=== PATIENT | male | born 1955 | race Caucasian/White ===

== ENCOUNTER 2017-03-11 09:22 | Emergency (ER) | payer OTHER ==
[2017-03-11] MEDS ORDERED: NS 0.9% 1000 ML* 1,000 ML IV ONE ×2 (09:31→10:56)
[2017-03-11] MEDS ORDERED: Ondansetron INJ* 2 MG/ML VIAL IV ONE (09:31)
[2017-03-11 09:55] LABS: Hematocrit 46 % (42-52); Hemoglobin 16.2 g/dl (14.0-18.0); Mean Corpuscular HGB Conc 35 g/dl (31-36); Mean Corpuscular Hemoglobin 31 pg (27-31); Mean Corpuscular Volume 90 fL (80-94); Mean Platelet Volume 7 um3 (7.4-10.4); Red Blood Count 5.17 10^6/ul (4.0-5.4); Red Cell Distribution Width 13 % (10.5-15); White Blood Count 9.4 10^3/ul (3.5-10.8)
[2017-03-11 10:06] LABS: Urine Bacteria Absent (Absent); Urine Bilirubin Negative (Negative); Urine Glucose Negative (Negative); Urine Nitrite Negative (Negative)
[2017-03-11 10:12] LABS: Albumin 4.3 g/dL (3.2-5.2); BUN/Creatinine Ratio 14.3 (8-20); C Reactive Protein 6.22 mg/L (< 5.00); Calcium 9.5 mg/dL (8.6-10.3); EGFR African American 70.1 (>60); EGFR Non-African American 54.5 (>60); Globulin 3.1 g/dL (2-4); Potassium 4.1 mmol/L (3.5-5.0); Total Bilirubin 0.8 mg/dL (0.2-1.0); Total Protein 7.4 g/dL (6.4-8.9)
--- NOTE | 2017-03-11 10:51 | ED ---
Abdominal Pain/Male - HPI Summary HPI Summary: 62 male presents to ED with complaints of diffuse upper abdominal pain, nausea, vomiting and diarrhea that began early this morning around 1AM. Patient states his pain and symptoms have since subsided shortly after arriving to ED. States he was feeling weak and chilled at this time. Thinks he may have ate "salad that went bad, because it did not get into the refrigerator on time". Denies any take out food. Denies blood in vomit or stool. No other symptoms. Last normal bowel movement was yesterday. Early this morning patient was experiencing loose stool that turned into watery diarrhea. Denies abdominal disease or surgeries other than stomach ulcers. Patient states his ulcer was last checked a few years ago and told it was healed. Take protonix daily. Denies chest pain, difficulty breathing, fever, urinary symptoms, genitalia symptoms and radiation of abdominal discomfort/pain. Described the pain to be dull and a 6/10 that gradually subsided on its own. Denies recent travel and no recent antibiotic use. Has not taken any medication [employer] for his symptoms. Follows with PCP annually. No other known sick contacts. No other significant PMHx. - History of Current Complaint Chief Complaint: EDAbdPain Stated Complaint: ABD PAIN, VOMITING, DIARRHEA Time Seen by Provider: 03/11/17 09:41 Hx Obtained From: Patient Onset/Duration: Sudden Onset, Still Present, Resolved - somewhat, still feeling nauseous Timing: Constant, Lasting Hours Severity Initially: Moderate Severity Currently: Mild Pain Intensity: 3 Pain Scale Used: 0-10 Numeric Location: Diffuse, Discrete At: RUQ, Discrete At: LUQ, Epigastric Radiates: No Character: Dull, Cramping Aggravating Factor(s): Nothing Alleviating Factor(s): Nothing, Spontaneous Resolution Associated Signs And Symptoms: Positive: Nausea, Vomiting, Diarrhea. Negative: Fever, Cough, Back Pain, Constipation, Blood in Stool, Urinary Symptoms - Risk Factors Testicular Torsion: Negative Cardiac Risk Factors: Negative - Allergies/Home Medications Allergies/Adverse Reactions: Allergies Allergy/AdvReac Type Severity Reaction Status Date / Time Sulfamethoxazole Allergy Fever Verified 07/14/15 15:04 w/Trimethoprim [From Bactrim] IV CONTRAST Allergy Unknown Uncoded 07/14/15 15:04 Reaction Details PMH/Surg Hx/FS Hx/Imm Hx Endocrine/Hematology History: Denies: Hx Anticoagulant Therapy, Hx Diabetes, Hx Thyroid Disease Cardiovascular History: Denies: Hx Hypercholesterolemia, Hx Hypertension, Hx Pacemaker/ICD Respiratory History: Denies: Hx Asthma, Hx Chronic Obstructive Pulmonary Disease (COPD) History: Denies: Hx Renal Disease Sensory History: Reports: Hx Contacts or Glasses Opthamlomology History: Reports: Hx Contacts or Glasses Neurological History: Denies: Hx Dementia, Hx Seizures Psychiatric History: Denies: Hx Substance Abuse - Surgical History Surgery Procedure, Year, and Place: right arm tendon repair and pins/plate - Immunization History Immunizations Up to Date: Yes Infectious Disease History: No Infectious Disease History: Reports: Hx of Known/Suspected MRSA Denies: Hx Clostridium Difficile, Hx Hepatitis, Hx Human Immunodeficiency Virus (HIV), Hx Shingles, Hx Tuberculosis, Hx Known/Suspected VRSA, History Other Infectious Disease, Traveled Outside the [place] in Last 30 Days - Family History Known Family History: Positive: None - Social History Alcohol Use: None Alcohol Amount: Quit approximately 3 years ago Substance Use Type: Reports: None Smoking Status (MU): Former Smoker Review of Systems Positive: Chills Cardiovascular: Negative Respiratory: Negative Positive: Abdominal Pain, Vomiting, Diarrhea, Nausea Genitourinary: Negative Musculoskeletal: Negative Skin: Negative Positive: Weakness - diffuse, from vomiting, has improved some All Other Systems Reviewed And Are Negative: Yes Physical Exam Triage Information Reviewed: Yes Vital Signs On Initial Exam: Initial Vitals Temp Pulse Resp BP Pulse Ox 98.5 F 100 20 121/77 97 03/11/17 09:24 03/11/17 09:24 03/11/17 09:24 03/11/17 09:24 03/11/17 09:24 Vital Signs Reviewed: Yes Appearance: Positive: Well-Appearing, No Pain Distress, Well-Nourished Skin: Positive: Warm, Skin Color Reflects Adequate Perfusion, Dry. Negative: Cold, Soft, Jaundiced, Pale, Erythema @ Head/Face: Positive: Normal Head/Face Inspection Eyes: Positive: Conjunctiva Clear ENT: Positive: Hearing grossly normal, Pharynx normal Dental: Negative: Cervical Lymphadenopathy Neck: Positive: Supple, Nontender, No Lymphadenopathy Respiratory/Lung Sounds: Positive: Clear to Auscultation, Breath Sounds Present. Negative: Rales, Rhonchi, Wheezes Cardiovascular: Positive: Normal, RRR, Pulses are Symmetrical in both Upper and Lower Extremities. Negative: Murmur, Rub Abdomen Description: Positive: Nontender, No Organomegaly, Soft. Negative: Bruit, CVA Tenderness (R), CVA Tenderness (L), Distended, Guarding, Peritoneal Signs, Pulsatile Mass Bowel Sounds: Positive: Present, Hyperactive Musculoskeletal: Positive: Normal, Strength/ROM Intact Neurological: Positive: Normal, Sensory/Motor Intact, Alert, Oriented to Person Place, Time Psychiatric: Positive: Affect/Mood Appropriate - William Coma Scale Coma Scale Total: 15 Diagnostics - Vital Signs Vital Signs Temp Pulse Resp BP Pulse Ox 03/11/17 10:02 96 94 03/11/17 09:52 98 96 03/11/17 09:46 100.2 F 99 18 110/73 95 03/11/17 09:24 98.5 F 100 20 121/77 97 - Laboratory Lab Results: Lab Results 03/11/17 03/11/17 03/11/17 Range/Units 09:41 09:41 09:41 WBC 9.4 (3.5-10.8) 10^3/ul RBC 5.17 (4.0-5.4) 10^6/ul Hgb 16.2 (14.0-18.0) g/dl Hct 46 (42-52) % MCV 90 (80-94) fL MCH 31 (27-31) pg MCHC 35 (31-36) g/dl RDW 13 (10.5-15) % Plt Count 210 (150-450) 10^3/ul MPV 7 L (7.4-10.4) um3 Neut % (Auto) 92.0 H (38-83) % Lymph % (Auto) 2.3 L (25-47) % [place] % (Auto) 5.2 (1-9) % Eos % (Auto) 0.3 (0-6) % Baso % (Auto) 0.2 (0-2) % Absolute Neuts (auto) 8.6 H (1.5-7.7) 10^3/ul Absolute Lymphs (auto) 0.2 L (1.0-4.8) 10^3/ul Absolute Monos (auto) 0.5 (0-0.8) 10^3/ul Absolute Eos (auto) 0 (0-0.6) 10^3/ul Absolute Basos (auto) 0 (0-0.2) 10^3/ul Absolute Nucleated RBC 0.01 10^3/ul Nucleated RBC % 0.1 Sodium 137 (133-145) mmol/L Potassium 4.1 (3.5-5.0) mmol/L Chloride 104 (101-111) mmol/L Carbon Dioxide 26 (22-32) mmol/L Anion Gap 7 (2-11) mmol/L BUN 19 (6-24) mg/dL Creatinine 1.33 H (0.67-1.17) mg/dL Est GFR ( Amer) 70.1 (>60) Est GFR (Non-Af Amer) 54.5 (>60) BUN/Creatinine Ratio 14.3 (8-20) Glucose 141 H (70-100) mg/dL Lactic Acid 2.2 H* (0.5-2.0) mmol/L Calcium 9.5 (8.6-10.3) mg/dL Total Bilirubin 0.80 (0.2-1.0) mg/dL AST 14 (13-39) U/L ALT 14 (7-52) U/L Alkaline Phosphatase 54 (34-104) U/L C-Reactive Protein 6.22 H (< 5.00) mg/L Total Protein 7.4 (6.4-8.9) g/dL Albumin 4.3 (3.2-5.2) g/dL Globulin 3.1 (2-4) g/dL Albumin/Globulin Ratio 1.4 (1-3) Lipase 17 (11.0-82.0) U/L Urine Color Urine Appearance Urine pH (5-9) Ur Specific [place] (1.010-1.030) Urine Protein (Negative) Urine Ketones (Negative) Urine Blood (Negative) Urine Nitrate (Negative) Urine Bilirubin (Negative) Urine Urobilinogen (Negative) Ur Leukocyte Esterase (Negative) Urine WBC (Auto) (Absent) Urine RBC (Auto) (Absent) Urine Bacteria (Absent) Urine Glucose (Negative) 03/11/17 Range/Units 09:48 WBC (3.5-10.8) 10^3/ul RBC (4.0-5.4) 10^6/ul Hgb (14.0-18.0) g/dl Hct (42-52) % MCV (80-94) fL MCH (27-31) pg MCHC (31-36) g/dl RDW (10.5-15) % Plt Count (150-450) 10^3/ul MPV (7.4-10.4) um3 Neut % (Auto) (38-83) % Lymph % (Auto) (25-47) % [place] % (Auto) (1-9) % Eos % (Auto) (0-6) % Baso % (Auto) (0-2) % Absolute Neuts (auto) (1.5-7.7) 10^3/ul Absolute Lymphs (auto) (1.0-4.8) 10^3/ul Absolute Monos (auto) (0-0.8) 10^3/ul Absolute Eos (auto) (0-0.6) 10^3/ul Absolute Basos (auto) (0-0.2) 10^3/ul Absolute Nucleated RBC 10^3/ul Nucleated RBC % Sodium (133-145) mmol/L Potassium (3.5-5.0) mmol/L Chloride (101-111) mmol/L Carbon Dioxide (22-32) mmol/L Anion Gap (2-11) mmol/L BUN (6-24) mg/dL Creatinine (0.67-1.17) mg/dL Est GFR ( Amer) (>60) Est GFR (Non-Af Amer) (>60) BUN/Creatinine Ratio (8-20) Glucose (70-100) mg/dL Lactic Acid (0.5-2.0) mmol/L Calcium (8.6-10.3) mg/dL Total Bilirubin (0.2-1.0) mg/dL AST (13-39) U/L ALT (7-52) U/L Alkaline Phosphatase (34-104) U/L C-Reactive Protein (< 5.00) mg/L Total Protein (6.4-8.9) g/dL Albumin (3.2-5.2) g/dL Globulin (2-4) g/dL Albumin/Globulin Ratio (1-3) Lipase (11.0-82.0) U/L Urine Color Yellow Urine Appearance Clear Urine pH 5.0 (5-9) Ur Specific [place] 1.018 (1.010-1.030) Urine Protein Negative (Negative) Urine Ketones Negative (Negative) Urine Blood 1+ H (Negative) Urine Nitrate Negative (Negative) Urine Bilirubin Negative (Negative) Urine Urobilinogen Negative (Negative) Ur Leukocyte Esterase Negative (Negative) Urine WBC (Auto) Trace(0-5/hpf) (Absent) Urine RBC (Auto) Trace(0-2/hpf) (Absent) Urine Bacteria Absent (Absent) Urine Glucose Negative (Negative) Result Diagrams: 03/11/17 09:41 03/11/17 09:41 Lab Statement: Any lab studies that have been ordered have been reviewed, and results considered in the medical decision making process. Re-Evaluation - Re-Evaluation First Eval Re-Evaluation Time: 10:30 Change: Improved - patient was feeling much better after zofran and fluids. Second Eval Re-Evaluation Time: 12:30 Change: Improved - still feeling much better, no vomiting. updated on second lactic acid value. had some diffuse lower abdominal dull achey pain, will give toradol. had increase in temp to 101F will give tylenol and wait to decrease before d/c. Third Eval Re-Evaluation Time: 13:30 Change: Improved - pain relieved, fever still 101F after 30min of tylenol administration however patient felt better, wanted to go home at this time. ready to be d/c aware of worsening signs and symptoms Abdominal Pain Fem Course/Dx - Course Course Of Treatment: given fluids and zofran patient had significant relief. was feeling much better, pain spontaneuously subsided. somewhat returned during visit, given toradol fo tylenol and fever of 101F that also gradually increased during stay. normal PE findings and vitals. labs obtained, first alctic was 2.2 did a repeat and was 1.9. no concern for sepsis. attempted to obtain stool culture. rest of labs unremarkable. urinalysis unremarkable. no urinary or gentialia symptoms. appears to be suffering a gastroenteritis, viral versus food poisoning. Imaging appears unnecessary at this time as no suspicion for appendicitis, cholecystitis, colitis, PUD, diverticulitis or biliary colic. No other concern for emergent abdominal etiologies. no chest pain, SOB or difficulty breathing. does not appear to be cardiorespiratory in nautre. no prominent risk factors. no alcohol use. aware of worsening signs and symptoms ( blood, fever, dehydration, worsening pain etc). fluids and zofran at home. rest. BRAT. follow up pcp. - Diagnoses Differential Diagnosis/HQI/PQRI: Appendicitis, Constipation, Diverticulitis, Gall Bladder Disease, Pancreatitis, Peptic Ulcer Disease, Urinary Tract Infection, Other - gastroenteritis, gastritis Provider Diagnoses: Gastroenteritis, Nausea vomiting and diarrhea Discharge - Discharge Plan Condition: Stable Disposition: HOME Prescriptions: Ondansetron TAB* [Zofran 4 MG Tab*] 4 mg PO Q6H PRN #10 tab PRN Reason: Nausea Patient Education Materials: Gastroenteritis (ED), Acute Nausea and Vomiting ( ED) Referrals: Maurice Rene MD [Primary Care Provider] - Additional Instructions: Recommend taking zofran for nausea and vomiting as needed. Take probiotic pill to replenish good/normal lisa in GI tract or eat latvian yogurt with cultures. Drink plenty of fluids, eat a bland diet containing bananas, toast, rice and applesauce. Follow up with PCP. If symptoms worsen or do not improve please seek medical attention promptly, as discussed (fever, chest pain, worsening localized pain, large blood in stool or vomit).
[2017-03-11] MEDS ORDERED: Ketorolac INJ* 30 MG/ML 1 ML VIAL IV PUSH ONE (12:25)
[2017-03-11] MEDS ORDERED: Acetaminophen TAB* 325 MG PO ONE (12:58)
[2017-03-11 13:00] VITALS: BP 105/61
== END 2017-03-11 14:08 | disposition home or self-care (01) ==
LOC: ED 09:22
DX: K52.9 Noninfective gastroenteritis and colitis, unspecified (principal); Z87.891 Personal history of nicotine dependence; Z88.2 Allergy status to sulfonamides
CPT/HCPCS: 36415; 80053; 81003; 81015; 83605; 83690; 85025; 86140; 87040; 96360; 96374; 96375; 99283; A9270-GY; J1885; J2405

== ENCOUNTER 2017-07-12 19:10 | Inpatient (IN) | payer OTHER ==
[2017-07-12 21:54] LABS: ABS Basophils 0.1 10^3/ul (0-0.2); ABS Eosinophils 0.1 10^3/ul (0-0.6); ABS Lymphocytes 1.7 10^3/ul (1.0-4.8); ABS Monocytes 1.4 10^3/ul (0-0.8); ABS Neutrophils 9.4 10^3/ul (1.5-7.7); ABS Nucleated RBC 0.04 10^3/ul; Hematocrit 45 % (42-52); Hemoglobin 15.6 g/dl (14.0-18.0); Lymphocyte % 13.1 % (25-47); Mean Corpuscular HGB Conc 35 g/dl (31-36); Mean Corpuscular Hemoglobin 31 pg (27-31); Mean Corpuscular Volume 90 fL (80-94); Mean Platelet Volume 7 um3 (7.4-10.4); Nucleated Red Blood Cells % 0.3; Platelet Count 230 10^3/ul (150-450); Red Cell Distribution Width 13 % (10.5-15); White Blood Count 12.6 10^3/ul (3.5-10.8)
--- NOTE | 2017-07-12 22:01 | RAD ---
INDICATION: LEFT rib pain radiating to the LEFT shoulder for approximately 24 hours. COMPARISON: April 30, 2012 TECHNIQUE: Dual energy PA and routine lateral views of the chest were obtained. REPORT: Alveolar consolidation at the level of the LEFT costophrenic angle. Small LEFT pleural effusion. Negative for pneumothorax. The heart, pulmonary vasculature, and mediastinal contours are unremarkable. No thoracic fractures evident. Mild thoracic degenerative spondylosis. IMPRESSION: Mild LEFT basilar airspace consolidation which may represent atelectasis or pneumonia. Probable small LEFT pleural effusion.
[2017-07-12 22:11] LABS: EGFR Non-African American 56.9 (>60)
[2017-07-12] MEDS ORDERED: NS 0.9% 1000 ML* 2,000 ML IV ONE (23:14)
[2017-07-12] MEDS ORDERED: Acetaminophen TAB* 325 MG PO ONE (23:15)
[2017-07-12] MEDS ORDERED: HYDROmorphone INJ* 2 MG/ML CARPUJECT SYRINGE IV SLOW PU ONE (23:16)
[2017-07-12] MEDS ORDERED: Vancomycin(*) 1,000 MG in NS 0.9% 250 ML* 250 ML IVPB ONE (23:17)
[2017-07-12] MEDS ORDERED: Ondansetron INJ* 2 MG/ML VIAL IV ONE (23:17)
[2017-07-12] MEDS ORDERED: Piperacillin/Tazobac ADVAN(*) 3.375 GM in NS 0.9% 100 ML* 100 ML IVPB ONE (23:17)
[2017-07-12] MEDS ORDERED: NS 0.9% 100 ML* 100 ML ONE (23:37)
[2017-07-13] MEDS ORDERED: HYDROmorphone INJ* 2 MG/ML CARPUJECT SYRINGE IV SLOW PU ONE ×2 (00:48→04:00)
[2017-07-13] MEDS ORDERED: Azithromycin IV(*) 500 MG in NS 0.9% 250 ML* 250 ML IVPB SCH (03:00)
[2017-07-13] MEDS ORDERED: Ketorolac INJ* 60 MG/2 ML VIAL ONE (04:07)
[2017-07-13] MEDS ORDERED: Ketorolac INJ* 30 MG/ML 1 ML VIAL IV PUSH ONE (04:08)
[2017-07-13] MEDS ORDERED: Ketorolac INJ* 60 MG/2 ML VIAL IV PUSH ONE (04:14)
--- NOTE | 2017-07-13 04:17 | ED ---
Rubén Boudreaux Gabriel, scribed for Deepak Davis MD on 07/12/17 at 2316 . Upper Extremity Pain - HPI Summary HPI Summary: This patient is a 62 year old M presenting to [facility] accompanied by his with a chief complaint of left rib and shoulder pain since 2100 yesterday. The patient rates the pain 4/10 in severity. Symptoms aggravated by sitting down and coughing. Patient reports pain on inspiration, chest congestion, and dizzy spells (1 month). Patient denies fever and injury. Patient denies any cardiac history. - History of Current Complaint Chief Complaint: EDChestWallPain Stated Complaint: PAIN IN LT SHOULDER & CHEST Time Seen by Provider: 07/12/17 22:43 Hx Obtained From: Patient Mechanism Of Injury: Other - none Onset/Duration: Started Days Ago - 1, Still Present Timing: Constant, Intermittent Severity Initially: Moderate Severity Currently: Moderate Pain Location: Shoulder, Other: - ribs Aggravating Factor(s): Other - sitting and coughing - Allergies/Home Medications Allergies/Adverse Reactions: Allergies Allergy/AdvReac Type Severity Reaction Status Date / Time Sulfamethoxazole Allergy Fever Verified 07/12/17 19:17 w/Trimethoprim [From Bactrim] IV CONTRAST Allergy Unknown Uncoded 07/12/17 19:17 Reaction Details PMH/Surg Hx/FS Hx/Imm Hx Endocrine/Hematology History: Denies: Hx Anticoagulant Therapy, Hx Diabetes, Hx Thyroid Disease Cardiovascular History: Denies: Hx Atrial Fibrillation, Hx Congenital Heart Disease, Hx Congestive Heart Failure, Hx Deep Vein Thrombosis, Hx Hypercholesterolemia, Hx Hypertension , Hx Pacemaker/ICD Respiratory History: Denies: Hx Asthma, Hx Chronic Obstructive Pulmonary Disease (COPD) History: Denies: Hx Renal Disease Sensory History: Reports: Hx Contacts or Glasses Opthamlomology History: Reports: Hx Contacts or Glasses Neurological History: Denies: Hx Dementia, Hx Seizures Psychiatric History: Denies: Hx Substance Abuse - Surgical History Surgery Procedure, Year, and Place: right arm tendon repair and pins/plate Infectious Disease History: No Infectious Disease History: Reports: Hx of Known/Suspected MRSA Denies: Hx Clostridium Difficile, Hx Hepatitis, Hx Human Immunodeficiency Virus (HIV), Hx Shingles, Hx Tuberculosis, Hx Known/Suspected VRSA, History Other Infectious Disease, Traveled Outside the [place] in Last 30 Days - Family History Known Family History: Positive: None - Social History Alcohol Use: None Alcohol Amount: Quit approximately 3 years ago Substance Use Type: Reports: None Smoking Status (MU): Former Smoker Review of Systems Positive: Other - rib and shoulder pain All Other Systems Reviewed And Are Negative: Yes Physical Exam - Summary Physical Exam Summary: VITAL SIGNS: Reviewed. GENERAL: Patient is a well-developed and nourished male who is lying comfortable in the stretcher. Patient is in moderate pain distress. HEAD AND FACE: No signs of trauma. No ecchymosis, hematomas or skull depressions. No sinus tenderness. EYES: PERRLA, EOMI x 2, No injected conjunctiva, no nystagmus. EARS: Hearing grossly intact. Ear canals and tympanic membranes are within normal limits. MOUTH: Oropharynx within normal limits. NECK: Supple, trachea is midline, no adenopathy, no JVD, no carotid bruit, no c- spine tenderness, neck with full ROM. CHEST: Symmetric, no tenderness at palpation LUNGS: decreased breath sounds bilaterally CVS: Regular rate and rhythm, S1 and S2 present, no murmurs or gallops appreciated. ABDOMEN: Soft, LUQ tenderness. No signs of distention. No rebound no guarding, and no masses palpated. Bowel sounds are normal. EXTREMITIES: FROM in all major joints, no edema, no cyanosis or clubbing. NEURO: Alert and oriented x 3. No acute neurological deficits. Speech is normal and follows commands. SKIN: Dry and warm Triage Information Reviewed: Yes Vital Signs On Initial Exam: Initial Vitals Temp Pulse Resp BP Pulse Ox 97.2 F 111 18 140/89 97 07/12/17 19:13 07/12/17 19:13 07/12/17 19:13 07/12/17 19:13 07/12/17 19:13 Vital Signs Reviewed: Yes Diagnostics - Vital Signs Vital Signs Temp Pulse Resp BP Pulse Ox 07/12/17 23:11 102.3 F 07/12/17 23:00 124 21 113/29 94 07/12/17 22:45 117 94 07/12/17 22:42 130/78 07/12/17 22:10 99.4 F 117 18 142/69 98 07/12/17 19:13 97.2 F 111 18 140/89 97 - Laboratory Lab Results: Lab Results 07/12/17 07/12/17 07/12/17 Range/Units 21:36 21:36 21:36 WBC 12.6 H (3.5-10.8) 10^3/ul RBC 5.00 (4.0-5.4) 10^6/ul Hgb 15.6 (14.0-18.0) g/dl Hct 45 (42-52) % MCV 90 (80-94) fL MCH 31 (27-31) pg MCHC 35 (31-36) g/dl RDW 13 (10.5-15) % Plt Count 230 (150-450) 10^3/ul MPV 7 L (7.4-10.4) um3 Neut % (Auto) 74.4 (38-83) % Lymph % (Auto) 13.1 L (25-47) % [place] % (Auto) 10.7 H (1-9) % Eos % (Auto) 1.0 (0-6) % Baso % (Auto) 0.8 (0-2) % Absolute Neuts (auto) 9.4 H (1.5-7.7) 10^3/ul Absolute Lymphs (auto) 1.7 (1.0-4.8) 10^3/ul Absolute Monos (auto) 1.4 H (0-0.8) 10^3/ul Absolute Eos (auto) 0.1 (0-0.6) 10^3/ul Absolute Basos (auto) 0.1 (0-0.2) 10^3/ul Absolute Nucleated RBC 0.04 10^3/ul Nucleated RBC % 0.3 D-Dimer, Quantitative 592 H (Less Than 230) ng/mL Sodium 138 (133-145) mmol/L Potassium 4.2 (3.5-5.0) mmol/L Chloride 100 L (101-111) mmol/L Carbon Dioxide 28 (22-32) mmol/L Anion Gap 10 (2-11) mmol/L BUN 19 (6-24) mg/dL Creatinine 1.28 H (0.67-1.17) mg/dL Est GFR ( Amer) 73.2 (>60) Est GFR (Non-Af Amer) 56.9 (>60) BUN/Creatinine Ratio 14.8 (8-20) Glucose 113 H (70-100) mg/dL Lactic Acid (0.5-2.0) mmol/L Calcium 10.3 (8.6-10.3) mg/dL Total Bilirubin 1.00 (0.2-1.0) mg/dL AST 16 (13-39) U/L ALT 18 (7-52) U/L Alkaline Phosphatase 66 (34-104) U/L Troponin I 0.00 (<0.04) ng/mL Total Protein 7.7 (6.4-8.9) g/dL Albumin 4.4 (3.2-5.2) g/dL Globulin 3.3 (2-4) g/dL Albumin/Globulin Ratio 1.3 (1-3) 07/12/17 Range/Units 21:36 WBC (3.5-10.8) 10^3/ul RBC (4.0-5.4) 10^6/ul Hgb (14.0-18.0) g/dl Hct (42-52) % MCV (80-94) fL MCH (27-31) pg MCHC (31-36) g/dl RDW (10.5-15) % Plt Count (150-450) 10^3/ul MPV (7.4-10.4) um3 Neut % (Auto) (38-83) % Lymph % (Auto) (25-47) % [place] % (Auto) (1-9) % Eos % (Auto) (0-6) % Baso % (Auto) (0-2) % Absolute Neuts (auto) (1.5-7.7) 10^3/ul Absolute Lymphs (auto) (1.0-4.8) 10^3/ul Absolute Monos (auto) (0-0.8) 10^3/ul Absolute Eos (auto) (0-0.6) 10^3/ul Absolute Basos (auto) (0-0.2) 10^3/ul Absolute Nucleated RBC 10^3/ul Nucleated RBC % D-Dimer, Quantitative (Less Than 230) ng/mL Sodium (133-145) mmol/L Potassium (3.5-5.0) mmol/L Chloride (101-111) mmol/L Carbon Dioxide (22-32) mmol/L Anion Gap (2-11) mmol/L BUN (6-24) mg/dL Creatinine (0.67-1.17) mg/dL Est GFR ( Amer) (>60) Est GFR (Non-Af Amer) (>60) BUN/Creatinine Ratio (8-20) Glucose (70-100) mg/dL Lactic Acid 3.2 H* (0.5-2.0) mmol/L Calcium (8.6-10.3) mg/dL Total Bilirubin (0.2-1.0) mg/dL AST (13-39) U/L ALT (7-52) U/L Alkaline Phosphatase (34-104) U/L Troponin I (<0.04) ng/mL Total Protein (6.4-8.9) g/dL Albumin (3.2-5.2) g/dL Globulin (2-4) g/dL Albumin/Globulin Ratio (1-3) Result Diagrams: 07/12/17 21:36 07/12/17 21:36 Lab Statement: Any lab studies that have been ordered have been reviewed, and results considered in the medical decision making process. - Radiology CXr Radiology Interpretation Completed By: Radiologist - Mild LEFT basilar airspace consolidation which may represent atelectasis or pneumonia. Probable small LEFT pleural effusion. ED physician has reviewed this radiology report. - CT CT ABD/Pelvis CT Interpretation Completed By: Radiologist - left lower lobe and lingular consolidations with minimal left pleural effusion may represent pneumonia and/ or atelectasis. No definite of acute traumatic pathology in chest, abdomen, or pelvis. ED physician has reviewed this report. - EKG 19:21 Cardiac Rate: NL, Tachycardia EKG Rhythm: Sinus Tachycardia - at 103 bpm EKG Interpretation: Normal axis. Normal interval. No ischemic changes Course/Dx - Course Assessment/Plan: This patient is a 62 year old M presenting to [facility] accompanied by his with a chief complaint of left rib and shoulder pain since 2100 yesterday. The patient rates the pain 4/10 in severity. Symptoms aggravated by sitting down and coughing. Patient reports pain on inspiration, chest congestion, and dizzy spells (1 month). Patient denies fever and injury. Patient denies any cardiac history. An EKG reveals Normal axis. Normal interval. No ischemic changes. CXR reveals, per radiologist, Mild LEFT basilar airspace consolidation which may represent atelectasis or. pneumonia. Probable small LEFT pleural effusion. CT Chest/ ABD reveals, per radiologist, left lower lobe and lingular consolidations with minimal left pleural effusion may represent pneumonia and/or atelectasis. No definite of acute traumatic pathology in chest, abdomen, or pelvis. Test results with no significant abnormalities except for a lactic acid of 3.2. We discussed patient care with Dr. Parikh and he agreed to admit the patient. The patient is agreeable with this plan. - Diagnoses Provider Diagnoses: PNA (pneumonia) - Physician Notifications Discussed Care of Patient With: Brennan Licona Time Discussed With Above Provider: 04:08 Instructed by Provider To: Admit As Inpatient Discharge - Discharge Plan Condition: Fair Disposition: ADMITTED TO [facility] Referrals: Maurice Rene MD [Primary Care Provider] - The documentation as recorded by the Rubén richardson Gabriel accurately reflects the service I personally performed and the decisions made by Susan mcfarland Abdul, MD.
[2017-07-13] MEDS ORDERED: Acetaminophen TAB* 325 MG PO PRN (06:00)
[2017-07-13] MEDS ORDERED: Albuterol 2.5 MG/3 ML NEB.SOL* (0.083%) INH PRN (06:00)
[2017-07-13] MEDS ORDERED: CMCS: Melatonin (NF) 3 MG TAB PO PRN (06:01)
[2017-07-13] MEDS ORDERED: Ondansetron INJ* 2 MG/ML VIAL IV PRN (06:02)
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
[2017-07-13] MEDS ORDERED: Azithromycin IV(*) 250 MG in D5W 250 ML BAG* 250 ML IVPB SCH (07:00)
[2017-07-13 07:05] LABS: ABS Basophils 0 10^3/ul (0-0.2); ABS Eosinophils 0 10^3/ul (0-0.6); ABS Lymphocytes 0.8 10^3/ul (1.0-4.8); ABS Monocytes 1.3 10^3/ul (0-0.8); ABS Neutrophils 11.2 10^3/ul (1.5-7.7); ABS Nucleated RBC 0.02 10^3/ul; Eosinophil % 0.1 % (0-6); Hematocrit 40 % (42-52); Hemoglobin 13.7 g/dl (14.0-18.0); Mean Corpuscular HGB Conc 35 g/dl (31-36); Mean Corpuscular Hemoglobin 31 pg (27-31); Mean Corpuscular Volume 90 fL (80-94); Mean Platelet Volume 7 um3 (7.4-10.4); Nucleated Red Blood Cells % 0.2; Platelet Count 188 10^3/ul (150-450); Red Blood Count 4.39 10^6/ul (4.0-5.4); Red Cell Distribution Width 13 % (10.5-15); White Blood Count 13.3 10^3/ul (3.5-10.8)
[2017-07-13] MEDS ORDERED: Enoxaparin(*) 100 MG/ML SYR SUBCUT ONE (07:11)
[2017-07-13 07:23] LABS: EGFR Non-African American 59.6 (>60)
--- NOTE | 2017-07-13 07:57 | RAD ---
HISTORY: Left-sided chest pain COMPARISONS: None TECHNIQUE: Multiple contiguous axial CT scans were obtained of the chest, abdomen, and pelvis, without intravenous contrast enhancement. Coronal and sagittal multiplanar reformations are submitted for review.. Oral contrast was not administered. FINDINGS: The study is limited by the lack of intravenous contrast. This limits evaluation of the solid organs and vasculature. CHEST NECK AND THYROID: The lower neck and thyroid are unremarkable. CHEST WALL: There is no lower cervical, axillary, or supraclavicular lymphadenopathy by size criteria. HEART AND PERICARDIUM: The heart is unremarkable. AORTA AND PULMONARY VASCULATURE: The aorta and pulmonary vasculature are normal. MEDIASTINUM: There is no mediastinal lymphadenopathy by size criteria. RYAN: There is no hilar lymphadenopathy by size criteria. AIRWAY AND ESOPHAGUS: The airway is unremarkable, without endobronchial filling defect. The esophagus is grossly normal. LUNG PARENCHYMA: There is patchy ground less opacification in subsegmental consolidation of the left lung base, and to lesser extent of the basal segments of the right lower lobe. PLEURA: There is a trace left pleural effusion. BONES AND SOFT TISSUES: No bone or soft tissue abnormalities are noted. ABDOMEN/PELVIS: LIVER: The liver is normal in shape, size, contour, and attenuation. BILE DUCTS: There is no intrahepatic or extrahepatic biliary dilatation. GALLBLADDER: The gallbladder is normal, without pericholecystic inflammatory change. PANCREAS: The pancreas is normal, without mass or ductal dilatation. SPLEEN: Normal in size and appearance. UPPER GI TRACT: Evaluation of the gastrointestinal tract is limited by incomplete gastric distention. The upper GI tract is unremarkable. SMALL BOWEL & MESENTERY: The small bowel is normal in contour, course, and caliber. There is no obstruction or dilatation. COLON: The colon is normal in contour, course, caliber. There is no pericolonic inflammatory change. There is a tubular, vermiform, hollow viscus that is blind ending, and originates from the cecum, consistent with a normal appendix. There is no periappendiceal inflammatory change. This is best seen on axial images 83 through 92. ADRENALS: Normal bilaterally. KIDNEYS: There is a simple cyst of the midpole the right kidney. There is no appreciable hydronephrosis or nephrolithiasis. BLADDER: The bladder is smooth in contour. PELVIC ORGANS: The prostate gland is normal. The seminal vesicles are symmetric. AORTA: The aorta is normal. IVC: Unremarkable LYMPH NODES: There is no lymphadenopathy by size criteria. ABDOMINAL WALL: There is no evidence for abdominal wall hernia. BONES AND SOFT TISSUES: There are mild diffuse degenerative changes. OTHER: None IMPRESSION: 1. PATCHY AIRSPACE DISEASE OF THE LUNG BASES BILATERALLY, GREATER ON THE LEFT THAN ON THE RIGHT. 2. OTHERWISE, NO ACUTE NONCONTRAST CT PATHOLOGY OF THE VISUALIZED CHEST, ABDOMEN, OR PELVIS.
[2017-07-13] MEDS: cefTRIAXone VIAL(*) 1,000 MG in NS 0.9% 50 ML* 50 ML IVPB SCH (08:55)
[2017-07-13] MEDS: NS 0.9% 1000 ML* 1,000 ML IV SCH ×2 (08:55→17:13)
[2017-07-13] MEDS: Omeprazole CAP* 20 MG PO SCH (09:45)
[2017-07-13] MEDS: Docusate CAP* 100 MG PO SCH ×2 (09:46→19:53)
[2017-07-13] MEDS: guaiFENesin ER TAB 600 MG PO SCH ×2 (09:46→19:53)
[2017-07-13] MEDS: Clobetasol 0.05% OINT* 30 GM TUBE TOPICAL SCH ×2 (09:56→22:07)
--- NOTE | 2017-07-13 12:04 | RAD ---
Indication: Left inferior chest pain. Ventilation and perfusion lung scan was performed after intravenous injection of 6.14 mCi of technetium 99m macroaggregated albumin. 7.9 mCi of xenon-133 was given via aerosol. Ventilation scan demonstrates no evidence of air trapping. The perfusion lung scan demonstrates one area of subsegmental perfusion defect in the left lateral lung base. No other areas of segmental or subsegmental perfusion defect is identified. This corresponds to a small chest x-ray infiltrate in the left costophrenic angle. This is a low probability scan for pulmonary embolus. IMPRESSION: Low probability scan for pulmonary embolus.
--- NOTE | 2017-07-13 13:13 | RAD ---
Indication: Leg edema. Duplex Doppler sonography of the deep venous system of both lower extremities was performed. Bilaterally the common femoral veins, proximal greater saphenous veins, proximal deep femoral veins, femoral veins, popliteal veins, right posterior tibial veins and right peroneal veins appear patent and compressible. Left calf vessels are limited in evaluation. IMPRESSION: NO EVIDENCE OF DEEP VENOUS THROMBOSIS OF EITHER LOWER EXTREMITY IS PRESENT. Left calf veins are not well demonstrated.
[2017-07-13] MEDS: oxyCODONE TAB* 5 MG TAB PO PRN ×2 (15:25→19:54)
--- NOTE | 2017-07-13 16:50 | PN ---
Subjective Date of Service: 07/13/17 Interval History: no complaints at this time, states that left chest pain is better Denies N/V/D or abd pain. Denies chest or shortness of breath. Denies body aches. Family History: Unchanged from Admission Social History: Unchanged from Admission Past Medical History: Unchanged from Admission Objective Active Medications: Acetaminophen (Tylenol Tab*) 650 mg PO Q6H PRN PRN Reason: FEVER/PAIN Albuterol (Ventolin 2.5 Mg/3 Ml Neb.Susan*) 2.5 mg INH Q2H PRN PRN Reason: SOB/WHEEZING Clobetasol Propionate (Clobetasol 0.05% Oint*) 1 applic TOPICAL BID [facility] Last Admin: 07/13/17 09:56 Dose: 1 applic Docusate Sodium (Colace Cap*) 200 mg PO BID [facility] Last Admin: 07/13/17 09:46 Dose: 200 mg Guaifenesin (Mucinex*) 1,200 mg PO BID [facility] Last Admin: 07/13/17 09:46 Dose: 1,200 mg Sodium Chloride (Ns 0.9% 1000 Ml*) 1,000 mls @ 125 mls/hr IV PER RATE [facility] Last Admin: 07/13/17 08:55 Dose: 125 mls/hr Azithromycin 500 mg/ Sodium (Chloride) 250 mls @ 250 mls/hr IVPB Q24H REECE Ceftriaxone Sodium 1,000 mg/ (Sodium Chloride) 50 mls @ 200 mls/hr IVPB Q24H [facility] Last Admin: 07/13/17 08:55 Dose: 200 mls/hr Melatonin (Melatonin (Nf)) 3 mg PO BEDTIME PRN; Protocol PRN Reason: Sleep Omeprazole (Prilosec Cap*) 40 mg PO DAILY [facility] Last Admin: 07/13/17 09:45 Dose: 40 mg Ondansetron HCl (Zofran Inj*) 4 mg IV Q6H PRN PRN Reason: NAUSEA Oxycodone HCl (Roxycodone Tab*) 5 mg PO Q4H PRN PRN Reason: PAIN Last Admin: 07/13/17 15:25 Dose: 5 mg Tramadol HCl (Ultram*) 50 mg PO Q6H PRN PRN Reason: PAIN Vital Signs - 8 hr 07/13/17 07/13/17 12:46 15:25 Respiratory 16 Rate O2 Sat by Pulse 96 Oximetry Oxygen Devices in Use Now: Nasal Cannula Appearance: alert to vebal, appears comfortable, no acute distress Ears/Nose/Mouth/Throat: Clear Oropharnyx, Mucous Membranes Moist Neck: NL Appearance and Movements; NL JVP, Trachea Midline Respiratory: Symmetrical Chest Expansion and Respiratory Effort, - - few rhonchi to the left base otherwise clear Cardiovascular: NL Sounds; No Murmurs; No JVD, RRR, No Edema Abdominal: NL Sounds; No Tenderness; No Distention Extremities: No Edema, No Clubbing, Cyanosis Skin: No Rash or Ulcers Neurological: Alert and Oriented x 3, NL Muscle Strength and Tone Nutrition: Taking PO's Result Diagrams: 07/13/17 06:09 07/13/17 06:09 Additional Lab and Data: Lab Results 07/12/17 07/12/17 07/12/17 Range/Units 21:36 21:36 21:36 WBC 12.6 H (3.5-10.8) 10^3/ul RBC 5.00 (4.0-5.4) 10^6/ul Hgb 15.6 (14.0-18.0) g/dl Hct 45 (42-52) % MCV 90 (80-94) fL MCH 31 (27-31) pg MCHC 35 (31-36) g/dl RDW 13 (10.5-15) % Plt Count 230 (150-450) 10^3/ul MPV 7 L (7.4-10.4) um3 Neut % (Auto) 74.4 (38-83) % Lymph % (Auto) 13.1 L (25-47) % [place] % (Auto) 10.7 H (1-9) % Eos % (Auto) 1.0 (0-6) % Baso % (Auto) 0.8 (0-2) % Absolute Neuts (auto) 9.4 H (1.5-7.7) 10^3/ul Absolute Lymphs (auto) 1.7 (1.0-4.8) 10^3/ul Absolute Monos (auto) 1.4 H (0-0.8) 10^3/ul Absolute Eos (auto) 0.1 (0-0.6) 10^3/ul Absolute Basos (auto) 0.1 (0-0.2) 10^3/ul Absolute Nucleated RBC 0.04 10^3/ul Nucleated RBC % 0.3 D-Dimer, Quantitative 592 H (Less Than 230) ng/mL Sodium 138 (133-145) mmol/L Potassium 4.2 (3.5-5.0) mmol/L Chloride 100 L (101-111) mmol/L Carbon Dioxide 28 (22-32) mmol/L Anion Gap 10 (2-11) mmol/L BUN 19 (6-24) mg/dL Creatinine 1.28 H (0.67-1.17) mg/dL Est GFR ( Amer) 73.2 (>60) Est GFR (Non-Af Amer) 56.9 (>60) BUN/Creatinine Ratio 14.8 (8-20) Glucose 113 H (70-100) mg/dL Lactic Acid (0.5-2.0) mmol/L Calcium 10.3 (8.6-10.3) mg/dL Total Bilirubin 1.00 (0.2-1.0) mg/dL AST 16 (13-39) U/L ALT 18 (7-52) U/L Alkaline Phosphatase 66 (34-104) U/L Troponin I 0.00 (<0.04) ng/mL Total Protein 7.7 (6.4-8.9) g/dL Albumin 4.4 (3.2-5.2) g/dL Globulin 3.3 (2-4) g/dL Albumin/Globulin Ratio 1.3 (1-3) 07/12/17 Range/Units 21:36 WBC (3.5-10.8) 10^3/ul RBC (4.0-5.4) 10^6/ul Hgb (14.0-18.0) g/dl Hct (42-52) % MCV (80-94) fL MCH (27-31) pg MCHC (31-36) g/dl RDW (10.5-15) % Plt Count (150-450) 10^3/ul MPV (7.4-10.4) um3 Neut % (Auto) (38-83) % Lymph % (Auto) (25-47) % [place] % (Auto) (1-9) % Eos % (Auto) (0-6) % Baso % (Auto) (0-2) % Absolute Neuts (auto) (1.5-7.7) 10^3/ul Absolute Lymphs (auto) (1.0-4.8) 10^3/ul Absolute Monos (auto) (0-0.8) 10^3/ul Absolute Eos (auto) (0-0.6) 10^3/ul Absolute Basos (auto) (0-0.2) 10^3/ul Absolute Nucleated RBC 10^3/ul Nucleated RBC % D-Dimer, Quantitative (Less Than 230) ng/mL Sodium (133-145) mmol/L Potassium (3.5-5.0) mmol/L Chloride (101-111) mmol/L Carbon Dioxide (22-32) mmol/L Anion Gap (2-11) mmol/L BUN (6-24) mg/dL Creatinine (0.67-1.17) mg/dL Est GFR ( Amer) (>60) Est GFR (Non-Af Amer) (>60) BUN/Creatinine Ratio (8-20) Glucose (70-100) mg/dL Lactic Acid 3.2 H* (0.5-2.0) mmol/L Calcium (8.6-10.3) mg/dL Total Bilirubin (0.2-1.0) mg/dL AST (13-39) U/L ALT (7-52) U/L Alkaline Phosphatase (34-104) U/L Troponin I (<0.04) ng/mL Total Protein (6.4-8.9) g/dL Albumin (3.2-5.2) g/dL Globulin (2-4) g/dL Albumin/Globulin Ratio (1-3) Diagnostic Imaging: VQ scan was low probability for PE Venous Ultrasound was NEgative for DVT bilaterally though left leg venous imaging was sub-optimal Assess/Plan/Problems-Billing Assessment: This is a 62 y.o male that was admitted to the hospital for left side chest pain that start on 07/11/2017 progressivly getting worse. Chest x-ray revealed LLL pneumonia. VQ scan was low probability for PE. Venous ultrasound was negative for DVT's... FLu swab is pending. - Patient Problems (1) Pneumonia Current Visit: Yes Status: Acute Code(s): J18.9 - PNEUMONIA, UNSPECIFIED ORGANISM SNOMED Code(s): 924068056 Comment: Continue Azithromycin and ceftriaxone oxygen support as needed - wean to keep saturation above 92% (2) GERD (gastroesophageal reflux disease) Current Visit: Yes Status: Acute Code(s): K21.9 - GASTRO-ESOPHAGEAL REFLUX DISEASE WITHOUT ESOPHAGITIS SNOMED Code(s): 401392165 Comment: Stable continue omeprazole (3) DVT prophylaxis Current Visit: Yes Status: Acute Code(s): QBV4461 - SNOMED Code(s): 245021067 (4) Full code status Current Visit: Yes Status: Acute Code(s): Z78.9 - OTHER SPECIFIED HEALTH STATUS SNOMED Code(s): 722155562 Status and Disposition: inpatient, possible discharge tomorrow
[2017-07-13] MEDS: traMADol TAB* 50 MG PO PRN (17:10)
[2017-07-13] MEDS ORDERED: HYDROmorphone INJ* 1 MG/ML CARPUJECT SYRINGE IV SLOW PU PRN (18:48)
[2017-07-13] MEDS: Heparin VIAL(*) 5000 UNITS/ML VIAL (FIVE THOUSAND) SUBCUT SCH (22:04)
[2017-07-14] MEDS: traMADol TAB* 50 MG PO PRN ×2 (00:03→06:21)
[2017-07-14] MEDS: oxyCODONE TAB* 5 MG TAB PO PRN ×2 (00:35→07:32)
[2017-07-14] MEDS: NS 0.9% 1000 ML* 1,000 ML IV SCH ×3 (01:20→18:51)
[2017-07-14] MEDS: Heparin VIAL(*) 5000 UNITS/ML VIAL (FIVE THOUSAND) SUBCUT SCH ×3 (05:41→21:13)
[2017-07-14] MEDS ORDERED: Heparin VIAL(*) 5000 UNITS/ML VIAL (FIVE THOUSAND) SUBCUT SCH (06:00)
[2017-07-14] MEDS ORDERED: Omeprazole CAP* 20 MG PO SCH (06:00)
[2017-07-14] MEDS: Docusate CAP* 100 MG PO SCH ×2 (07:32→21:12)
[2017-07-14] MEDS: Omeprazole CAP* 20 MG PO SCH (07:32)
[2017-07-14] MEDS: guaiFENesin ER TAB 600 MG PO SCH ×2 (07:33→21:12)
[2017-07-14] MEDS: cefTRIAXone VIAL(*) 1,000 MG in NS 0.9% 50 ML* 50 ML IVPB SCH (07:33)
[2017-07-14] MEDS: Clobetasol 0.05% OINT* 30 GM TUBE TOPICAL SCH ×2 (07:41→21:13)
[2017-07-14] MEDS ORDERED: Azithromycin IV(*) 500 MG in NS 0.9% 250 ML* 250 ML IVPB SCH (08:00)
[2017-07-14 09:39] LABS: ABS Basophils 0 10^3/ul (0-0.2); ABS Eosinophils 0.2 10^3/ul (0-0.6); ABS Lymphocytes 1.3 10^3/ul (1.0-4.8); ABS Monocytes 0.8 10^3/ul (0-0.8); ABS Neutrophils 4.9 10^3/ul (1.5-7.7); ABS Nucleated RBC 0 10^3/ul; Eosinophil % 2.4 % (0-6); Hematocrit 37 % (42-52); Hemoglobin 12.6 g/dl (14.0-18.0); Lymphocyte % 18.2 % (25-47); Mean Corpuscular HGB Conc 34 g/dl (31-36); Mean Corpuscular Hemoglobin 31 pg (27-31); Mean Corpuscular Volume 91 fL (80-94); Mean Platelet Volume 7 um3 (7.4-10.4); Nucleated Red Blood Cells % 0.1; Platelet Count 167 10^3/ul (150-450); Red Blood Count 4.04 10^6/ul (4.0-5.4); Red Cell Distribution Width 13 % (10.5-15); White Blood Count 7.2 10^3/ul (3.5-10.8)
[2017-07-14 09:57] LABS: EGFR Non-African American 67.8 (>60)
--- NOTE | 2017-07-14 16:18 | PN ---
Subjective Date of Service: 07/14/17 Interval History: Patient states that breath and anterior left lower chest pain is improved today. Able to take deeper breaths, States that he still has pain with lying. Denies shortness of breath. Denies N/V/D or abd pain. Denies dysuria. wearing O2 at 2 liters. Family History: Unchanged from Admission Social History: Unchanged from Admission Past Medical History: Unchanged from Admission Objective Active Medications: Acetaminophen (Tylenol Tab*) 650 mg PO Q6H PRN PRN Reason: FEVER/PAIN Albuterol (Ventolin 2.5 Mg/3 Ml Neb.Susan*) 2.5 mg INH Q2H PRN PRN Reason: SOB/WHEEZING Clobetasol Propionate (Clobetasol 0.05% Oint*) 1 applic TOPICAL BID [facility] Last Admin: 07/14/17 07:41 Dose: 1 applic Docusate Sodium (Colace Cap*) 200 mg PO BID [facility] Last Admin: 07/14/17 07:32 Dose: 200 mg Guaifenesin (Mucinex*) 1,200 mg PO BID [facility] Last Admin: 07/14/17 07:33 Dose: 1,200 mg Heparin Sodium (Porcine) (Heparin Vial(*)) 5,000 units SUBCUT Q8HR [facility] Last Admin: 07/14/17 14:19 Dose: 5,000 units Hydromorphone HCl (Dilaudid Injic*) 0.5 mg IV SLOW PU ONCE PRN PRN Reason: PAIN Sodium Chloride (Ns 0.9% 1000 Ml*) 1,000 mls @ 125 mls/hr IV PER RATE [facility] Last Admin: 07/14/17 10:00 Dose: 125 mls/hr Azithromycin 500 mg/ Sodium (Chloride) 250 mls @ 250 mls/hr IVPB Q24H [facility] Last Admin: 07/14/17 08:11 Dose: 250 mls/hr Ceftriaxone Sodium 1,000 mg/ (Sodium Chloride) 50 mls @ 200 mls/hr IVPB Q24H [facility] Last Admin: 07/14/17 07:33 Dose: 200 mls/hr Azithromycin 500 mg/ Dextrose 250 mls @ 250 mls/hr IVPB Q24H [facility] Melatonin (Melatonin (Nf)) 3 mg PO BEDTIME PRN; Protocol PRN Reason: Sleep Omeprazole (Prilosec Cap*) 40 mg PO DAILY [facility] Last Admin: 07/14/17 07:32 Dose: 40 mg Ondansetron HCl (Zofran Inj*) 4 mg IV Q6H PRN PRN Reason: NAUSEA Oxycodone HCl (Roxycodone Tab*) 5 mg PO Q4H PRN PRN Reason: PAIN Last Admin: 07/14/17 07:32 Dose: 5 mg Tramadol HCl (Ultram*) 50 mg PO Q6H PRN PRN Reason: PAIN Last Admin: 07/14/17 06:21 Dose: 50 mg Vital Signs - 8 hr 07/14/17 07/14/17 07/14/17 08:20 10:15 10:20 Temperature Pulse Rate 86 Respiratory 19 18 18 Rate Blood Pressure (mmHg) O2 Sat by Pulse 97 Oximetry 07/14/17 07/14/17 11:29 15:47 Temperature 98.1 F 98.6 F Pulse Rate 84 75 Respiratory 20 21 Rate Blood Pressure 121/65 107/51 (mmHg) O2 Sat by Pulse 98 93 Oximetry Oxygen Devices in Use Now: Nasal Cannula Appearance: alert, appears comfortable sitting on the edge of the bed. Ears/Nose/Mouth/Throat: Clear Oropharnyx, Mucous Membranes Moist Neck: NL Appearance and Movements; NL JVP Respiratory: Symmetrical Chest Expansion and Respiratory Effort, Clear to Auscultation Cardiovascular: NL Sounds; No Murmurs; No JVD, RRR, No Edema Abdominal: NL Sounds; No Tenderness; No Distention Extremities: No Edema, No Clubbing, Cyanosis Skin: No Rash or Ulcers Neurological: Alert and Oriented x 3, NL Sensation, NL Gait Nutrition: Taking PO's Result Diagrams: 07/14/17 09:06 07/14/17 09:06 Additional Lab and Data: Lab Results 07/12/17 07/12/17 07/12/17 Range/Units 21:36 21:36 21:36 WBC 12.6 H (3.5-10.8) 10^3/ul RBC 5.00 (4.0-5.4) 10^6/ul Hgb 15.6 (14.0-18.0) g/dl Hct 45 (42-52) % MCV 90 (80-94) fL MCH 31 (27-31) pg MCHC 35 (31-36) g/dl RDW 13 (10.5-15) % Plt Count 230 (150-450) 10^3/ul MPV 7 L (7.4-10.4) um3 Neut % (Auto) 74.4 (38-83) % Lymph % (Auto) 13.1 L (25-47) % [place] % (Auto) 10.7 H (1-9) % Eos % (Auto) 1.0 (0-6) % Baso % (Auto) 0.8 (0-2) % Absolute Neuts (auto) 9.4 H (1.5-7.7) 10^3/ul Absolute Lymphs (auto) 1.7 (1.0-4.8) 10^3/ul Absolute Monos (auto) 1.4 H (0-0.8) 10^3/ul Absolute Eos (auto) 0.1 (0-0.6) 10^3/ul Absolute Basos (auto) 0.1 (0-0.2) 10^3/ul Absolute Nucleated RBC 0.04 10^3/ul Nucleated RBC % 0.3 D-Dimer, Quantitative 592 H (Less Than 230) ng/mL Sodium 138 (133-145) mmol/L Potassium 4.2 (3.5-5.0) mmol/L Chloride 100 L (101-111) mmol/L Carbon Dioxide 28 (22-32) mmol/L Anion Gap 10 (2-11) mmol/L BUN 19 (6-24) mg/dL Creatinine 1.28 H (0.67-1.17) mg/dL Est GFR ( Amer) 73.2 (>60) Est GFR (Non-Af Amer) 56.9 (>60) BUN/Creatinine Ratio 14.8 (8-20) Glucose 113 H (70-100) mg/dL Lactic Acid (0.5-2.0) mmol/L Calcium 10.3 (8.6-10.3) mg/dL Total Bilirubin 1.00 (0.2-1.0) mg/dL AST 16 (13-39) U/L ALT 18 (7-52) U/L Alkaline Phosphatase 66 (34-104) U/L Troponin I 0.00 (<0.04) ng/mL Total Protein 7.7 (6.4-8.9) g/dL Albumin 4.4 (3.2-5.2) g/dL Globulin 3.3 (2-4) g/dL Albumin/Globulin Ratio 1.3 (1-3) 07/12/17 Range/Units 21:36 WBC (3.5-10.8) 10^3/ul RBC (4.0-5.4) 10^6/ul Hgb (14.0-18.0) g/dl Hct (42-52) % MCV (80-94) fL MCH (27-31) pg MCHC (31-36) g/dl RDW (10.5-15) % Plt Count (150-450) 10^3/ul MPV (7.4-10.4) um3 Neut % (Auto) (38-83) % Lymph % (Auto) (25-47) % [place] % (Auto) (1-9) % Eos % (Auto) (0-6) % Baso % (Auto) (0-2) % Absolute Neuts (auto) (1.5-7.7) 10^3/ul Absolute Lymphs (auto) (1.0-4.8) 10^3/ul Absolute Monos (auto) (0-0.8) 10^3/ul Absolute Eos (auto) (0-0.6) 10^3/ul Absolute Basos (auto) (0-0.2) 10^3/ul Absolute Nucleated RBC 10^3/ul Nucleated RBC % D-Dimer, Quantitative (Less Than 230) ng/mL Sodium (133-145) mmol/L Potassium (3.5-5.0) mmol/L Chloride (101-111) mmol/L Carbon Dioxide (22-32) mmol/L Anion Gap (2-11) mmol/L BUN (6-24) mg/dL Creatinine (0.67-1.17) mg/dL Est GFR ( Amer) (>60) Est GFR (Non-Af Amer) (>60) BUN/Creatinine Ratio (8-20) Glucose (70-100) mg/dL Lactic Acid 3.2 H* (0.5-2.0) mmol/L Calcium (8.6-10.3) mg/dL Total Bilirubin (0.2-1.0) mg/dL AST (13-39) U/L ALT (7-52) U/L Alkaline Phosphatase (34-104) U/L Troponin I (<0.04) ng/mL Total Protein (6.4-8.9) g/dL Albumin (3.2-5.2) g/dL Globulin (2-4) g/dL Albumin/Globulin Ratio (1-3) Microbiology and Other Data: Microbiology 07/13/17 14:02 Legionella Urinary Antigen - Final Urine Negative Legionella Streptococcus pneumoniae Ag Screen - Final Negative S. pneumo Antigen 07/13/17 16:55 Influenza Types A,B Antigen (RUTH) - Final Nasopharyngeal Specimen received for Influenza A/B Molecular testing Diagnostic Imaging: VQ scan was low probability for PE Venous Ultrasound was NEgative for DVT bilaterally though left leg venous imaging was sub-optimal Assess/Plan/Problems-Billing Assessment: This is a 62 y.o male that was admitted to the hospital for left side chest pain that start on 07/11/2017 progressivly getting worse. Chest x-ray revealed LLL pneumonia. VQ scan was low probability for PE. Venous ultrasound was negative for DVT's... FLu swab is Negative. Continues to have mild anterior chest pain with deep breath and cough as well as lying flat. - Patient Problems (1) Pneumonia Current Visit: Yes Status: Acute Code(s): J18.9 - PNEUMONIA, UNSPECIFIED ORGANISM SNOMED Code(s): 112680397 Comment: Continue Azithromycin and ceftriaxone oxygen support as needed - wean to keep saturation above 92% (2) GERD (gastroesophageal reflux disease) Current Visit: Yes Status: Acute Code(s): K21.9 - GASTRO-ESOPHAGEAL REFLUX DISEASE WITHOUT ESOPHAGITIS SNOMED Code(s): 406976647 Comment: Stable continue omeprazole (3) DVT prophylaxis Current Visit: Yes Status: Acute Code(s): VUU2339 - SNOMED Code(s): 933000035 (4) Full code status Current Visit: Yes Status: Acute Code(s): Z78.9 - OTHER SPECIFIED HEALTH STATUS SNOMED Code(s): 036285414 (5) Hypoxia Current Visit: Yes Status: Acute Code(s): R09.02 - HYPOXEMIA SNOMED Code(s ): 605527633 Comment: Room air saturation decreased to 82% when sleeping, awake o2 saturation upper 80's - suspect this is like d/t LLL pneumonia O2 via NC at 2 lter to maintain O2 saturations 92% (6) Pleurisy Current Visit: Yes Status: Acute Code(s): R09.1 - PLEURISY SNOMED Code(s) : 190729084 Comment: continue pain control encourage deep breathing Status and Disposition: inpatient, possible discharge tomorrow
[2017-07-15] MEDS: NS 0.9% 1000 ML* 1,000 ML IV SCH (03:12)
[2017-07-15] MEDS: Heparin VIAL(*) 5000 UNITS/ML VIAL (FIVE THOUSAND) SUBCUT SCH (05:40)
[2017-07-15 07:27] VITALS: BP 117/78
[2017-07-15] MEDS: guaiFENesin ER TAB 600 MG PO SCH (07:31)
[2017-07-15] MEDS: cefTRIAXone VIAL(*) 1,000 MG in NS 0.9% 50 ML* 50 ML IVPB SCH (07:31)
[2017-07-15] MEDS: Omeprazole CAP* 20 MG PO SCH (07:32)
[2017-07-15] MEDS: Clobetasol 0.05% OINT* 30 GM TUBE TOPICAL SCH (07:33)
[2017-07-15] MEDS: Docusate CAP* 100 MG PO SCH (07:33)
[2017-07-15] MEDS ORDERED: Azithromycin IV(*) 500 MG in D5W 250 ML BAG* 250 ML IVPB SCH (08:00)
--- NOTE | 2017-07-15 10:31 | PN ---
Subjective Date of Service: 07/15/17 Interval History: Patient states that he feels a little better today. Continue to c/o upper chest and left lower rib pain with deep breath. States that the pain is unchanged since admission. Denies N/V. Denies abd pain. Denies shortness of breath. Family History: Unchanged from Admission Social History: Unchanged from Admission Past Medical History: Unchanged from Admission Objective Active Medications: Acetaminophen (Tylenol Tab*) 650 mg PO Q6H PRN PRN Reason: FEVER/PAIN Albuterol (Ventolin 2.5 Mg/3 Ml Neb.Susan*) 2.5 mg INH Q2H PRN PRN Reason: SOB/WHEEZING Clobetasol Propionate (Clobetasol 0.05% Oint*) 1 applic TOPICAL BID [facility] Last Admin: 07/15/17 07:33 Dose: 1 applic Docusate Sodium (Colace Cap*) 200 mg PO BID [facility] Last Admin: 07/15/17 07:33 Dose: Not Given Guaifenesin (Mucinex*) 1,200 mg PO BID [facility] Last Admin: 07/15/17 07:31 Dose: 1,200 mg Heparin Sodium (Porcine) (Heparin Vial(*)) 5,000 units SUBCUT Q8HR [facility] Last Admin: 07/15/17 05:40 Dose: 5,000 units Hydromorphone HCl (Dilaudid Injic*) 0.5 mg IV SLOW PU ONCE PRN PRN Reason: PAIN Sodium Chloride (Ns 0.9% 1000 Ml*) 1,000 mls @ 125 mls/hr IV PER RATE [facility] Last Admin: 07/15/17 03:12 Dose: 125 mls/hr Ceftriaxone Sodium 1,000 mg/ (Sodium Chloride) 50 mls @ 200 mls/hr IVPB Q24H [facility] Last Admin: 07/15/17 07:31 Dose: 200 mls/hr Azithromycin 500 mg/ Dextrose 250 mls @ 250 mls/hr IVPB Q24H [facility] Last Admin: 07/15/17 08:35 Dose: 250 mls/hr Melatonin (Melatonin (Nf)) 3 mg PO BEDTIME PRN; Protocol PRN Reason: Sleep Omeprazole (Prilosec Cap*) 40 mg PO DAILY [facility] Last Admin: 07/15/17 07:32 Dose: 40 mg Ondansetron HCl (Zofran Inj*) 4 mg IV Q6H PRN PRN Reason: NAUSEA Oxycodone HCl (Roxycodone Tab*) 5 mg PO Q4H PRN PRN Reason: PAIN Last Admin: 07/14/17 07:32 Dose: 5 mg Tramadol HCl (Ultram*) 50 mg PO Q6H PRN PRN Reason: PAIN Last Admin: 07/14/17 06:21 Dose: 50 mg Vital Signs - 8 hr 07/15/17 07/15/17 07/15/17 02:32 07:18 07:39 Temperature 98.9 F 99.1 F Pulse Rate 88 88 Respiratory 16 16 18 Rate Blood Pressure 111/64 117/78 (mmHg) O2 Sat by Pulse 98 92 Oximetry Oxygen Devices in Use Now: None Appearance: alert, awake, appears comfortable resting in bed. Eyes: No Scleral Icterus Ears/Nose/Mouth/Throat: NL Teeth, Lips, Gums, Mucous Membranes Moist Neck: NL Appearance and Movements; NL JVP, Trachea Midline Respiratory: Symmetrical Chest Expansion and Respiratory Effort, - - crackles in the left base, otherwise clear Cardiovascular: NL Sounds; No Murmurs; No JVD, RRR, No Edema Abdominal: NL Sounds; No Tenderness; No Distention Extremities: No Edema, No Clubbing, Cyanosis Skin: No Rash or Ulcers Neurological: Alert and Oriented x 3, NL Sensation, NL Gait, NL Muscle Strength and Tone Nutrition: Taking PO's Result Diagrams: 07/14/17 09:06 07/14/17 09:06 Additional Lab and Data: Lab Results 07/12/17 07/12/17 07/12/17 Range/Units 21:36 21:36 21:36 WBC 12.6 H (3.5-10.8) 10^3/ul RBC 5.00 (4.0-5.4) 10^6/ul Hgb 15.6 (14.0-18.0) g/dl Hct 45 (42-52) % MCV 90 (80-94) fL MCH 31 (27-31) pg MCHC 35 (31-36) g/dl RDW 13 (10.5-15) % Plt Count 230 (150-450) 10^3/ul MPV 7 L (7.4-10.4) um3 Neut % (Auto) 74.4 (38-83) % Lymph % (Auto) 13.1 L (25-47) % [place] % (Auto) 10.7 H (1-9) % Eos % (Auto) 1.0 (0-6) % Baso % (Auto) 0.8 (0-2) % Absolute Neuts (auto) 9.4 H (1.5-7.7) 10^3/ul Absolute Lymphs (auto) 1.7 (1.0-4.8) 10^3/ul Absolute Monos (auto) 1.4 H (0-0.8) 10^3/ul Absolute Eos (auto) 0.1 (0-0.6) 10^3/ul Absolute Basos (auto) 0.1 (0-0.2) 10^3/ul Absolute Nucleated RBC 0.04 10^3/ul Nucleated RBC % 0.3 D-Dimer, Quantitative 592 H (Less Than 230) ng/mL Sodium 138 (133-145) mmol/L Potassium 4.2 (3.5-5.0) mmol/L Chloride 100 L (101-111) mmol/L Carbon Dioxide 28 (22-32) mmol/L Anion Gap 10 (2-11) mmol/L BUN 19 (6-24) mg/dL Creatinine 1.28 H (0.67-1.17) mg/dL Est GFR ( Amer) 73.2 (>60) Est GFR (Non-Af Amer) 56.9 (>60) BUN/Creatinine Ratio 14.8 (8-20) Glucose 113 H (70-100) mg/dL Lactic Acid (0.5-2.0) mmol/L Calcium 10.3 (8.6-10.3) mg/dL Total Bilirubin 1.00 (0.2-1.0) mg/dL AST 16 (13-39) U/L ALT 18 (7-52) U/L Alkaline Phosphatase 66 (34-104) U/L Troponin I 0.00 (<0.04) ng/mL Total Protein 7.7 (6.4-8.9) g/dL Albumin 4.4 (3.2-5.2) g/dL Globulin 3.3 (2-4) g/dL Albumin/Globulin Ratio 1.3 (1-3) 07/12/17 Range/Units 21:36 WBC (3.5-10.8) 10^3/ul RBC (4.0-5.4) 10^6/ul Hgb (14.0-18.0) g/dl Hct (42-52) % MCV (80-94) fL MCH (27-31) pg MCHC (31-36) g/dl RDW (10.5-15) % Plt Count (150-450) 10^3/ul MPV (7.4-10.4) um3 Neut % (Auto) (38-83) % Lymph % (Auto) (25-47) % [place] % (Auto) (1-9) % Eos % (Auto) (0-6) % Baso % (Auto) (0-2) % Absolute Neuts (auto) (1.5-7.7) 10^3/ul Absolute Lymphs (auto) (1.0-4.8) 10^3/ul Absolute Monos (auto) (0-0.8) 10^3/ul Absolute Eos (auto) (0-0.6) 10^3/ul Absolute Basos (auto) (0-0.2) 10^3/ul Absolute Nucleated RBC 10^3/ul Nucleated RBC % D-Dimer, Quantitative (Less Than 230) ng/mL Sodium (133-145) mmol/L Potassium (3.5-5.0) mmol/L Chloride (101-111) mmol/L Carbon Dioxide (22-32) mmol/L Anion Gap (2-11) mmol/L BUN (6-24) mg/dL Creatinine (0.67-1.17) mg/dL Est GFR ( Amer) (>60) Est GFR (Non-Af Amer) (>60) BUN/Creatinine Ratio (8-20) Glucose (70-100) mg/dL Lactic Acid 3.2 H* (0.5-2.0) mmol/L Calcium (8.6-10.3) mg/dL Total Bilirubin (0.2-1.0) mg/dL AST (13-39) U/L ALT (7-52) U/L Alkaline Phosphatase (34-104) U/L Troponin I (<0.04) ng/mL Total Protein (6.4-8.9) g/dL Albumin (3.2-5.2) g/dL Globulin (2-4) g/dL Albumin/Globulin Ratio (1-3) Microbiology and Other Data: Microbiology 07/13/17 14:02 Legionella Urinary Antigen - Final Urine Negative Legionella Streptococcus pneumoniae Ag Screen - Final Negative S. pneumo Antigen 07/13/17 16:55 Influenza Types A,B Antigen ([facility]) - Final Nasopharyngeal Specimen received for Influenza A/B Molecular testing Diagnostic Imaging: VQ scan was low probability for PE Venous Ultrasound was NEgative for DVT bilaterally though left leg venous imaging was sub-optimal Assess/Plan/Problems-Billing Assessment: This is a 62 y.o male that was admitted to the hospital for left side chest pain that start on 07/11/2017 progressively getting worse. Chest x-ray revealed LLL pneumonia. VQ scan was low probability for PE. Venous ultrasound was negative for DVT's... FLu swab is Negative. Feels better today. Will discharge home. - Patient Problems (1) Pneumonia Status: Acute Code(s): J18.9 - PNEUMONIA, UNSPECIFIED ORGANISM SNOMED Code(s ): 833824524 Comment: Continue Azithromycin Will switch to PO for 2 more days Oxygen saturations have improved, not requiring supplemental O2 Will place on Cefdinir 300 mg po BID for 7 days (2) GERD (gastroesophageal reflux disease) Status: Acute Code(s): K21.9 - GASTRO-ESOPHAGEAL REFLUX DISEASE WITHOUT ESOPHAGITIS SNOMED Code(s): 900441315 Comment: Stable continue omeprazole (3) DVT prophylaxis Status: Acute Code(s): HJR6497 - SNOMED Code(s): 952941687 Comment: Heparin SubQ (4) Full code status Status: Acute Code(s): Z78.9 - OTHER SPECIFIED HEALTH STATUS SNOMED Code(s) : 398475212 Status and Disposition: Discharge Home today Rest Increase fluid intake Cefdinir 300 mg po 2 times a day for 7 days. Azithromycin 250 mg po daily for 2 days start tomorrow Return to the emergency room for any increased shortness of breath. follow up with your primary care doctor in 4-7 days
--- NOTE | 2017-07-16 04:48 | DS ---
AMENDED REPORT NOW INCLUDES COSIGNER DESIGNATION - ESIGNED BEFORE ADJUSTMENTS CC: Maurice Rene MD * DISCHARGE SUMMARY: DATE OF ADMISSION: 07/13/17 DATE OF DISCHARGE: 07/15/17 PROVIDER: Merlyn Juarez NP ATTENDING PHYSICIAN WHILE IN THE HOSPITAL: Dr. Hanna Bryan* (dictated by Merlyn Juarez NP). PRIMARY CARE PROVIDER: Maurice Rene MD PRIMARY DIAGNOSES: 1. Left chest pain. 2. Left lower lobe pneumonia. SECONDARY DIAGNOSES: 1. Gastroesophageal reflux disease. 2. Psoriasis. STUDIES WHILE IN THE HOSPITAL: He had a chest x-ray on 07/12/17, which showed mild left basilar airspace consolidation, which may represent atelectasis or pneumonia, probable small left pleural effusion. He had a CT of the chest and abdomen and pelvis, impression: Patchy airspace disease of the lung base bilaterally greater on the left than on the right. Otherwise, no acute noncontrast CT pathology visualized chest, abdomen or pelvis. He had a V/Q scan, impression was low probability scan for pulmonary emboli. The perfusion lung scan demonstrates one area of subsegmental perfusion defect in the left lateral lung base. There is no other area of segmental or subsegmental perfusion defect identified. This corresponds to a small chest infiltrate in the left costophrenic angle. He had a venous Doppler study done on 07/13/17, impression: No evidence of deep vein thrombosis of either lower extremity is present. The left calf veins were not well demonstrated. DISCHARGE MEDICATIONS: 1. Azithromycin 250 mg p.o. for 2 more days to start tomorrow. 2. Cefdinir 300 mg p.o. 2 times a day for 7 days. 3. Tramadol 50 mg 1 tablet p.o. q.6 hours as needed for pain. Continued home medications: 1. Omeprazole 40 mg p.o. daily. 2. Clobetasol 0.05 ointment applied topically twice a day. 3. Calcitriol topical ointment 3 mcg daily. HISTORY OF PRESENT ILLNESS: Mr. Choudhury is a 62-year-old male who experienced onset of mild sharp left inferior chest pain around 9 p.m. on 07/11/17, it persisted and gradually worsened to severe today, radiating to bilateral shoulders posteriorly with associated chills. He has had intermittent spinning and dizziness for 2 weeks, but denies fever, sweats, cough, congestion, or palpitations. He denied any nausea or vomiting. While in the emergency room, CT of the chest, abdomen and pelvis without contrast showed left lower lobe pneumonia. White count was 12.9, neutrophils were 74.4, lactic acid was 3.2, and CRP was 45. D-Dimer was elevated. While in the emergency room, he had a CT of the chest, abdomen and pelvis, which showed left lower lobe pneumonia. He also had a chest x-ray that showed small left pleural effusion. He received azithromycin in the ER. He received some Tylenol and Toradol for the pain. He received 2000 cc IV bolus. He also received Zosyn 3.375 g. Due to his pneumonia, he was admitted to the hospital. While in the hospital, he was placed on oxygen to maintain oxygen saturations greater than 92%. He was placed on azithromycin 500 mg IV daily. He was also placed on ceftriaxone 1 g IV daily. He received some oxycodone and tramadol for his pain. His repeat lactc acid on 07/13 was 1.3. During the day on July 14, he required O2 via nasal cannula at 2 L. His sats were dropped into the mid 80s when he was off oxygen. His oxygen saturations improved throughout the day and he was able to be taken off of oxygen. His oxygen saturations on room air were able to be maintained at 96% to 98%. He has not had oxygen on all day on Tuesday, July 15 and was able to maintain oxygen saturations of 96% to 98% . The patient states that he is feeling a little bit better and would like to be discharged home today. Mr. Choudhury is stable for discharge home today. Vital signs are as follows: Temp was 99.1, heart rate was 88, respirations 16, O2 sat was 92% to 98%, blood pressure 117/78. DISCHARGE PLAN: Mr. Choudhury will be discharged to home. Activity as tolerated. He should continue regular diet and increase p.o. fluids. In regards to his left lower lobe pneumonia, he will be continued on azithromycin 250 mg p.o. x2 days. He will be placed on cefdinir 300 mg b.i.d. for 7 days. I also have given him some tramadol 50 mg p.o. every 6 hours as needed for pain. He was instructed not to drive, drink alcohol or operate any heavy machinery while taking this medication. I encouraged him to continue to take deep breaths at least 10 times an hour while awake. The patient should follow up with his primary care provider, Dr. Rene in 4 to 7 days for a recheck. The patient was instructed to return to the emergency room for any increased chest pain or increased shortness of breath. This is summary of his medical stay history while here in the hospital. For further details, please see the entire medical record. TIME SPENT: Time spent on this discharge was approximately 45 minutes greater than half the time was spent with the patient discussing his discharge plans and giving him instructions. CONDITION ON DISCHARGE: Stable. MERLYN JUAREZ NP [id number]/[facility] #: [id number] JOSE
== END 2017-07-15 11:42 | disposition home or self-care (01) | DRG 194 ==
LOC: ED 19:10 → MED 07-13 06:00
PROVIDERS: ADMIT Hospitalist; ATTEND Internal Medicine
DX: J18.9 Pneumonia, unspecified organism (principal); J90 Pleural effusion, not elsewhere classified; E66.9 Obesity, unspecified; L40.9 Psoriasis, unspecified; R09.02 Hypoxemia; R07.89 Other chest pain; K21.9 Gastro-esophageal reflux disease without esophagitis; Z87.891 Personal history of nicotine dependence; Z88.2 Allergy status to sulfonamides; Z91.041 Radiographic dye allergy status; Z68.35 Body mass index [BMI] 35.0-35.9, adult
CPT/HCPCS: 36415; 71046; 71250; 74176; 78582; 80048; 80053; 83605; 84484; 85025; 85379; 86140; 87040; 87502; 87899; 93005; 93970; 94760; 99285; A9270-GY; A9540; A9558; J0456; J0696; J1170; J1644; J1650; J1885; J2405; J2543; J3370

== ENCOUNTER 2017-10-09 08:51 | Inpatient (IN) | payer OTHER ==
--- OUTSIDE RECORDS SUMMARY | 2017-10-09 09:40 | XMS REPORT ---
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 PayID: [id number] [place] [address] Problems Date Description Provider Status Onset: 07/05/2011 Lateral epicondylitis Robert White Active Onset: 07/05/2011 Disorder of lipid metabolism Maurice Rene M.D. Active Onset: 02/09/2012 Cellulitis Maurice Rene M.D. Active Onset: 09/11/2011 Acute upper respiratory infection Ton Barragan M.D. Active Onset: 09/11/2011 Acute pharyngitis Ton Barragan M.D. Active Social History Type Date Description Comments Cigarette Use Former Cigarette Smoker quit 1997 Smoking Patient is a former smoker quit 18 yrs ago Allergies, Adverse Reactions, Alerts Date Description Reaction Status Severity Comments 11/06/2010 Contrast Dye active 05/08/2012 Bactrim active Medications Medication Date Status Form Strength Qnty SIG Indications Ordering Provider Claritin 08/17 Active Capsules 10mg 30cap use 1 by Maurice Mullins /2018 s mouth q.d Elise Rene Vectical 10/03 Active Ointment 3mcg/GM alternate q Maurice J. /2009 2 wks on [place], feet M.D. Clobetasol Active Cream 0.05% apply to Unknown Propionate / feet and Emollient hands as directed Omeprazole Active Capsules DR 40mg 1 by mouth Unknown / every day Meclizine HCL 05/18 Hx Tablets 12.5mg 30tab Take 1-2 by H81.10 Tess Redmond /2016 s mouth 3 Ahmet, - times daily [employer] 08/17 as needed for vertigo Fluticasone 10/22 Hx Suspension 50mcg/Act 1bott 2 puffs 477.9 Esther Propionate le each [facility], - nostril Afnp-C 01/07 everyday Doxycycline 10/[address] 100mg 20tab 1 by mouth Esther Hyclate s twice a day [facility], - Afnp-C 11/01 Cheratussin ac 10/22 Hx Syrup 100-10mg/ 4oz 1-2 Esther 5ML teaspoons [facility], - every 4-6 Afnp-C 01/07 hour as needed for cough Ventolin HFA 10/22 Hx Aerosol 108(90Bas 1unit 2 puffs Esther e) s q4hr as [facility], - mcg/Act needed Afnp-C 01/07 cough, wheeze Cipro 08/02 Hx Tablets 500mg 20tab 1 tab twice 599.70 [place], /2014 s a day for M.D. - 10 days 10/22 Fluticasone 04/30 Hx Suspension 50mcg/Act 1bott 1 puff each 477.9 Felicia Propionate le nostril [place], - everyday M.D. 10/22 Tamiflu 11/27 Hx Capsules 75mg 10cap 1 po bid 478.9 Elisa L. /2012 s Shireen, - M.D. 12/27 Meclizine HCL 09/08 Hx Tablets 25mg 15tab take 1 386.9 Daniela s tablet David, [employer] - three times 11/27 a day needed for dizziness Ciprofloxacin 05/08 Hx Tablets 250mg 6tabs 1 po bid x 604.90 Elisa LSandrine HCL /2011 3 days. Isabella Iyer M.D. 09/08 Physical 05/08 Hx Hebert hip 604.90 Elisa L. Therapy pain. Isabella Iyer r>alfredo Olivares 09/08 evaluate and treat. Work Excuse 02/10 Hx out till Maurice J. jose Rene, - when re Elise 02/17 occurs Work Excuse 02/08 Hx unable to Maurice J. work this Isabella Rene M.D. 02/10 Clindamycin HCL 02/08 Hx Capsules 300mg 30cap use tid . Isabella Sharpe M.D. 02/17 Bactrim DS 02/08 Hx Tablets 800-160mg 20tab use bid . Isabella Sharpe M.D. 02/17 Azithromycin 09/10 Hx Tablets 250mg 6tabs 2 po today Ton TSandrine and 1 po x [place]ura, - 4 days M.DSandrine 02/08 Biaxin XL 07/15 Hx Tablets ER 500mg 20tab 2 po qd 466.0 Chadd A. 24HR Isabella Pratt M.D. 07/25 Hydrocodone/Apa 09/02 Hx Tablets 5/500 30tab 1 po q4-6 724.2 Sury p /2006 s hrs prn von - Felten, 07/09 M.D. /2007 Ibuprofen 09/02 Hx Tablets 600mg 60tab 1 PO tid 724.2 Sury /2006 s With Food von - prn For Felten, 07/09 Pain M.D. /2007 Flexeril 09/02 Hx Tablets 10mg 60tab 1 po at hs 724.2 Sury s prn muscle von - spasm Fel[place], 07/09 M.D. /2007 Augmentin 12/09 Hx Tablets 875mg 20tab 1 PO bid Chadd A. s With Isabella Avilez M.D. 12/19 Extendryl SR 12/09 Hx Capsules 8mg;20mg; 20cap 1 PO bid Chadd A. /2004 2.5MG Isabella Pratt M.D. 12/19 Anusol HC 10/02 Hx Creme 15gm Use bid Maurice Mullins /Isabella Cohen M.D. 05/26 Vanos Hx Cream 0.1% alternate q Unknown /0000 2 wks - 04/[address] Hx Tablets [address] 20mg 30tab 1 by mouth Unknown /0000 s every day - 10/22 Cefdinir Hx Capsules 300mg 1 by mouth Unknown /0000 twice daily - x7 days 09/22 Immunizations CPT Code Status Date Vaccine Lot # [id number] Given 04/14/2016 Influenza Vac, Quadriv[place], [place] [id number] Given 02/07/2015 Zostivax [id number] Given 02/07/2015 Tdap Tetanus, W Pertussis [id number] Vital Signs Date Vital Result Comment 09/22/2017 BP Systolic 110 mmHg BP Diastolic 62 mmHg Heart Rate 91 /min Body Temperature 97.7 F O2 % BldC Oximetry 96 % Height 68 inches 5'8" Weight 233.00 lb BMI (Body Mass Index) 35.4 kg/m2 08/17/2017 BP Systolic 116 mmHg BP Diastolic 68 mmHg Heart Rate 72 /min Body Temperature 98.1 F Respiratory Rate 16 /min Height 68 inches 5'8" Weight 239.12 lb BMI (Body Mass Index) 36.4 kg/m2 07/20/2017 BP Systolic 100 mmHg BP Diastolic 62 mmHg Heart Rate 56 /min Body Temperature 98.2 F Respiratory Rate 16 /min Height 68 inches 5'8" Weight 236.50 lb BMI (Body Mass Index) 36.0 kg/m2 05/18/2017 BP Systolic 94 mmHg BP Diastolic 62 mmHg Heart Rate 56 /min Body Temperature 97.4 F Respiratory Rate 16 /min Height 68 inches 5'8" Weight 228.00 lb BMI (Body Mass Index) 34.7 kg/m2 08/18/2016 BP Systolic 110 mmHg BP Diastolic 70 mmHg Heart Rate 60 /min Body Temperature 97.7 F Respiratory Rate 16 /min Height 68 inches 5'8" Weight 233.00 lb BMI (Body Mass Index) 35.4 kg/m2 02/07/2015 BP Systolic 118 mmHg BP Diastolic 80 mmHg Heart Rate 58 /min Body Temperature 97.6 F Respiratory Rate 16 /min Height 68 inches 5'8" Weight 232.00 lb BMI (Body Mass Index) 35.3 kg/m2 01/07/2015 BP Systolic 118 mmHg BP Diastolic 80 mmHg Heart Rate 58 /min Body Temperature 97.8 F Height 68 inches 5'8" measured Weight 236.00 lb BMI (Body Mass Index) 35.9 kg/m2 11/11/2014 BP Systolic 98 mmHg BP Diastolic 70 mmHg Heart Rate 68 /min Body Temperature 98.6 F Respiratory Rate 18 /min Height 68 inches 5'8" measured Weight 235.00 lb BMI (Body Mass Index) 35.7 kg/m2 10/22/2014 BP Systolic 100 mmHg BP Diastolic 64 mmHg Heart Rate 64 /min Body Temperature 98.2 F Respiratory Rate 16 /min Height 68 inches 5'8" measured Weight 233.00 lb BMI (Body Mass Index) 35.4 kg/m2 08/02/2014 BP Systolic 120 mmHg BP Diastolic 70 mmHg Heart Rate 68 /min Body Temperature 97.8 F Respiratory Rate 16 /min Height 68 inches 5'8" measured Weight 239.00 lb BMI (Body Mass Index) 36.3 kg/m2 04/30/2014 BP Systolic 100 mmHg BP Diastolic 70 mmHg Heart Rate 68 /min Body Temperature 98.3 F Respiratory Rate 12 /min Height 68 inches 5'8" measured Weight 231.00 lb BMI (Body Mass Index) 35.1 kg/m2 12/27/2012 BP Systolic 116 mmHg BP Diastolic 64 mmHg Heart Rate 56 /min Body Temperature 97.0 F Respiratory Rate 16 /min Height 68 inches 5'8" measured Weight 226.25 lb BMI (Body Mass Index) 34.4 kg/m2 11/27/2012 BP Systolic 110 mmHg BP Diastolic 80 mmHg Heart Rate 80 /min Body Temperature 100.5 F Respiratory Rate 16 /min Height 67.25 inches 5'7.25" Weight 235.00 lb BMI (Body Mass Index) 36.5 kg/m2 09/08/2012 BP Systolic 100 mmHg BP Diastolic 60 mmHg Heart Rate 60 /min Body Temperature 97.1 F Height 67.25 inches 5'7.25" Weight 236.00 lb BMI (Body Mass Index) 36.7 kg/m2 05/08/2012 BP Systolic 124 mmHg BP Diastolic 66 mmHg Heart Rate 66 /min Body Temperature 97.3 F Height 67.25 inches 5'7.25" Weight 225.00 lb BMI (Body Mass Index) 35.0 kg/m2 02/18/2012 BP Systolic 92 mmHg BP Diastolic 60 mmHg Heart Rate 84 /min Body Temperature 101.4 F O2 % BldC Oximetry 98 % Height 67.25 inches 5'7.25" Weight 230.00 lb BMI (Body Mass Index) 35.8 kg/m2 02/15/2012 BP Systolic 100 mmHg BP Diastolic 60 mmHg Heart Rate 80 /min Body Temperature 98.4 F Height 67.25 inches 5'7.25" Weight 230.00 lb BMI (Body Mass Index) 35.8 kg/m2 02/11/2012 BP Systolic 112 mmHg BP Diastolic 62 mmHg Heart Rate 68 /min Body Temperature 98.5 F Height 67.25 inches 5'7.25" Weight 230.00 lb BMI (Body Mass Index) 35.8 kg/m2 02/09/2012 BP Systolic 118 mmHg BP Diastolic 68 mmHg Heart Rate 64 /min Height 67.25 inches 5'7.25" Weight 231.00 lb BMI (Body Mass Index) 35.9 kg/m2 09/11/2011 BP Systolic 120 mmHg BP Diastolic 68 mmHg Heart Rate 72 /min Body Temperature 97.0 F Height 67.25 inches 5'7.25" Weight 227.00 lb BMI (Body Mass Index) 35.3 kg/m2 05/13/2011 BP Systolic 94 mmHg BP Diastolic 64 mmHg Heart Rate 60 /min Height 67.25 inches 5'7.25" Weight 222.00 lb BMI (Body Mass Index) 34.5 kg/m2 11/06/2010 BP Systolic 112 mmHg BP Diastolic 80 mmHg Heart Rate 74 /min Body Temperature 97.6 F Height 67.25 inches 5'7.25" Weight 224.00 lb BMI (Body Mass Index) 34.8 kg/m2 08/24/2010 BP Systolic 100 mmHg BP Diastolic 60 mmHg Heart Rate 60 /min Body Temperature 97.5 F Respiratory Rate 20 /min Weight 230.00 lb 10/03/2009 BP Systolic 94 mmHg BP Diastolic 60 mmHg Heart Rate 64 /min Body Temperature 97.8 F Respiratory Rate 16 /min Weight 226.00 lb 07/15/2009 BP Systolic 96 mmHg BP Diastolic 68 mmHg Heart Rate 80 /min Body Temperature 96.9 F Respiratory Rate 16 /min O2 % BldC Oximetry 98 % Weight 224.00 lb 04/29/2009 BP Systolic 110 mmHg BP Diastolic 68 mmHg Heart Rate 72 /min Body Temperature 97.8 F Respiratory Rate 18 /min Weight 210.00 lb 08/02/2008 BP Systolic 110 mmHg BP Diastolic 70 mmHg Heart Rate 68 /min Body Temperature 97.1 F Height 68 inches 5'8" Weight 230.00 lb BMI (Body Mass Index) 35.0 kg/m2 07/09/2008 Height 68 inches 5'8" 07/09/2008 BP Systolic 102 mmHg BP Diastolic 70 mmHg Heart Rate 80 /min Body Temperature 97.7 F Height 68 inches 5'8" Weight 237.00 lb BMI (Body Mass Index) 36.0 kg/m2 09/02/2006 BP Systolic 108 mmHg BP Diastolic 60 mmHg Heart Rate 84 /min Height 68 inches 5'8" Weight 225.00 lb BMI (Body Mass Index) 34.2 kg/m2 09/07/2005 BP Systolic 92 mmHg BP Diastolic 60 mmHg Heart Rate 62 /min Height 68 inches 5'8" Weight 217.00 lb BMI (Body Mass Index) 33.0 kg/m2 12/09/2004 BP Systolic 110 mmHg BP Diastolic 60 mmHg Body Temperature 98.2 F Height 68 inches 5'8" Weight 206.00 lb BMI (Body Mass Index) 31.3 kg/m2 11/30/2004 BP Systolic 100 mmHg BP Diastolic 60 mmHg Heart Rate 60 /min Height 68 inches 5'8" Weight 208.00 lb BMI (Body Mass Index) 31.6 kg/m2 09/01/2004 BP Systolic 124 mmHg BP Diastolic 80 mmHg Heart Rate 68 /min Height 68 inches 5'8" Weight 208.00 lb BMI (Body Mass Index) 31.6 kg/m2 05/26/2004 BP Systolic 122 mmHg BP Diastolic 70 mmHg Body Temperature 97.3 F Height 68 inches 5'8" Weight 200.00 lb BMI (Body Mass Index) 30.4 kg/m2 12/16/1998 BP Systolic 110 mmHg LG Cuff BP Diastolic 70 mmHg LG Cuff Height 68 inches 5'8" Weight 209.00 lb 10/02/1997 BP Systolic 100 mmHg BP Diastolic 66 mmHg Height 68 inches 5'8" Weight 200.00 lb Results Test Date Test Result H/L Range Note Laboratory test finding 07/13/2017 Troponin I 0.00 ng/mL <0.04 C Reactive Protein 44.50 mg/L High < 5.00 1 Laboratory test finding 07/13/2017 Troponin I 0.00 ng/mL <0.04 Laboratory test finding 07/13/2017 Blood Culture SEE RESULT BELOW 2 Laboratory test finding 07/12/2017 Lactic Acid 3.2 mmol/L High 0.5-2.0 3 Comp Metabolic Panel 07/12/2017 Sodium 138 mmol/L 133-145 Potassium 4.2 mmol/L 3.5-5.0 Chloride 100 mmol/L Low 101-111 Co2 Carbon Dioxide 28 mmol/L 22-32 Anion Gap 10 mmol/L 2-11 Glucose 113 mg/dL High 70-100 Blood Urea Nitrogen 19 mg/dL 6-24 Creatinine 1.28 mg/dL High 0.67-1.17 BUN/Creatinine Ratio 14.8 8-20 Calcium 10.3 mg/dL 8.6-10.3 Total Protein 7.7 g/dL 6.4-8.9 Albumin 4.4 g/dL 3.2-5.2 Globulin 3.3 g/dL 2-4 Albumin/Globulin Ratio 1.3 1-3 Total Bilirubin 1.00 mg/dL 0.2-1.0 Alkaline Phosphatase 66 U/L 34-104 Alt 18 U/L 7-52 Ast 16 U/L 13-39 Egfr Non- 56.9 >60 Egfr 73.2 >60 4 Laboratory test finding 07/12/2017 Troponin I 0.00 ng/mL <0.04 D Dimer Quantitative 592 ng/mL High Less Than 230 5 CBC Auto Diff 07/12/2017 White Blood Count 12.6 10^3/uL High 3.5-10.8 Red Blood Count 5.00 10^6/uL 4.0-5.4 Hemoglobin 15.6 g/dL 14.0-18.0 Hematocrit 45 % 42-52 Mean Corpuscular Volume 90 fL 80-94 Mean Corpuscular Hemoglobin 31 pg 27-31 Mean Corpuscular HGB Conc 35 g/dL 31-36 Red Cell Distribution Width 13 % 10.5-15 Platelet Count 230 10^3/uL 150-450 Mean Platelet Volume 7 um3 Low 7.4-10.4 Abs Neutrophils 9.4 10^3/uL High 1.5-7.7 Abs Lymphocytes 1.7 10^3/uL 1.0-4.8 Abs Monocytes 1.4 10^3/uL High 0-0.8 Abs Eosinophils 0.1 10^3/uL 0-0.6 Abs Basophils 0.1 10^3/uL 0-0.2 Abs Nucleated RBC 0.04 10^3/uL Granulocyte % 74.4 % 38-83 Lymphocyte % 13.1 % Low 25-47 Monocyte % 10.7 % High 1-9 Eosinophil % 1.0 % 0-6 Basophil % 0.8 % 0-2 Nucleated Red Blood Cells % 0.3 Laboratory test finding 03/11/2017 Lactic Acid 1.9 mmol/L 0.5-2.0 6, 7 CBC Auto Diff 03/11/2017 White Blood Count 9.4 10^3/uL 3.5-10.8 Red Blood Count 5.17 10^6/uL 4.0-5.4 Hemoglobin 16.2 g/dL 14.0-18.0 Hematocrit 46 % 42-52 Mean Corpuscular Volume 90 fL 80-94 Mean Corpuscular Hemoglobin 31 pg 27-31 Mean Corpuscular HGB Conc 35 g/dL 31-36 Red Cell Distribution Width 13 % 10.5-15 Platelet Count 210 10^3/uL 150-450 Mean Platelet Volume 7 um3 Low 7.4-10.4 Abs Neutrophils 8.6 10^3/uL High 1.5-7.7 Abs Lymphocytes 0.2 10^3/uL Low 1.0-4.8 Abs Monocytes 0.5 10^3/uL 0-0.8 Abs Eosinophils 0 10^3/uL 0-0.6 Abs Basophils 0 10^3/uL 0-0.2 Abs Nucleated RBC 0.01 10^3/uL Granulocyte % 92.0 % High 38-83 Lymphocyte % 2.3 % Low 25-47 Monocyte % 5.2 % 1-9 Eosinophil % 0.3 % 0-6 Basophil % 0.2 % 0-2 Nucleated Red Blood Cells % 0.1 Laboratory test finding 03/11/2017 Lipase 17 U/L 11.0-82.0 C Reactive Protein 6.22 mg/L High < 5.00 8 Laboratory test finding 03/11/2017 Blood Culture SEE RESULT BELOW 9 Urinalysis Profile 03/11/2017 Urine Color Yellow Urine Appearance Clear Urine Specific [place] 1.018 1.010-1.030 Urine pH 5.0 5-9 Urine Urobilinogen Negative Negative Urine Ketones Negative Negative Urine Protein Negative Negative Urine Leukocytes Negative Negative Urine Blood 1+ Negative Urine Nitrite Negative Negative Urine Bilirubin Negative Negative Urine Glucose Negative Negative Urine White Blood Cell Trace(0-5/hpf) Absent Urine Red Blood Cell Trace(0-2/hpf) Absent Urine Bacteria Absent Absent Comp Metabolic Panel 03/11/2017 Sodium 137 mmol/L 133-145 Potassium 4.1 mmol/L 3.5-5.0 Chloride 104 mmol/L 101-111 Co2 Carbon Dioxide 26 mmol/L 22-32 Anion Gap 7 mmol/L 2-11 Glucose 141 mg/dL High 70-100 Blood Urea Nitrogen 19 mg/dL 6-24 Creatinine 1.33 mg/dL High 0.67-1.17 BUN/Creatinine Ratio 14.3 8-20 Calcium 9.5 mg/dL 8.6-10.3 Total Protein 7.4 g/dL 6.4-8.9 Albumin 4.3 g/dL 3.2-5.2 Globulin 3.1 g/dL 2-4 Albumin/Globulin Ratio 1.4 1-3 Total Bilirubin 0.80 mg/dL 0.2-1.0 Alkaline Phosphatase 54 U/L 34-104 Alt 14 U/L 7-52 Ast 14 U/L 13-39 Egfr Non- 54.5 >60 Egfr 70.1 >60 10 Laboratory test finding 03/11/2017 Blood Culture SEE RESULT BELOW 11 Lactic Acid 2.2 mmol/L High 0.5-2.0 12 Laboratory test finding 08/18/2016 PSA 0.7 ng/mL 0.0-4.0 Complete Blood Count 08/18/2016 WBC 5.4 x10^3/UL 3.6-9.6 RBC 4.95 x10^6/UL 3.90-5.70 HGB 15.4 g/dL 12.1-17.2 HCT 45 % 36-50 MCV 91.0 fL 82.2-97.4 MCH 31.2 pg 27.6-33.3 MCHC 34.2 g/dL 33.0-35.5 RDW 12.8 % 11.6-13.7 PLT 217 x10^3/UL 150-400 MPV 7.1 fL Low 7.4-10.4 Gran # 3.4 x10^3/UL 1.5-7.2 Lymph# 1.6 x10^3/UL 0.7-4.9 Riley# 0.4 x10^3/UL 0.1-0.9 Gran % 59.6 % 42.2-75.2 Lymph % 31.5 % 20.5-51.1 Riley% 8.9 % 1.7-9.3 Comprehensive Metabolic Prof 08/18/2016 Sodium 143 mEq/L 134-149 Potassium 4.4 mEq/L 3.6-5.5 Chloride 108 mEq/L 94-112 Carbon Dioxide 30 mEq/L 21-32 Glucose 94 mg/dL 70-105 BUN 16 mg/dL 6-26 Creatinine 1.1 mg/dL 0.6-1.4 BUN/Creat Ratio 14.5 CALC 8.0-36.0 Calcium 9.7 mg/dL 8.6-10.2 Total Protein 7.7 g/dL 6.4-8.3 Albumin 4.7 g/dL 3.8-5.5 Globulin 3.0 g/dL 2.0-4.8 A/G Ratio 1.6 CALC 0.6-2.3 Alk. Phosphatase 60 U/L 22-95 Alt (SGPT) 21 U/L 7-35 Ast (Sgot) 20 U/L 5-34 Total Bilirubin 0.7 mg/dL 0.2-1.3 GFR Non- >60 ml/min/1.73m^ >=60 GFR >60 ml/min/1.73m^ >=60 Lipid Profile 08/18/2016 Cholesterol 237 mg/dL High 120-200 Triglycerides 143 mg/dL 30-200 HDL Cholesterol 50 mg/dL 30-70 LDL (Calculated) 158 CALC High 0-129 VLDL Cholesterol 29 mg/dL 0-50 HDL Risk Factor 4.7 CALC High 0.0-4.4 Laboratory test finding 04/12/2016 Surgical Pathology SEE RESULT BELOW 13 Laboratory test finding 02/07/2015 PSA 0.6 ng/mL 0.0-4.0 Ua - Non Micro (Fma) 02/07/2015 Appearance yellow Color clear Glucose, Urine (Fma/CMC/CTX) neg Bilirubin neg Ketones neg SP Grav 1.025 Blood neg PH 6.0 Protein ssa neg Urobil 0.2 Nitrite neg Leukocytes (Fma/CMC/Centrex) neg Complete Blood Count 02/07/2015 WBC 4.9 x10^3/UL 3.6-9.6 RBC 4.85 x10^6/UL 3.90-5.70 HGB 15.7 g/dL 12.1-17.2 HCT 45 % 36-50 MCV 93.0 fL 82.2-97.4 MCH 32.4 pg 27.6-33.3 MCHC 34.7 g/dL 33.0-35.5 RDW 13.5 % 11.6-13.7 PLT 195 x10^3/UL 150-400 MPV 6.5 fL Low 7.4-10.4 Gran # 2.9 x10^3/UL 1.5-7.2 Lymph# 1.7 x10^3/UL 0.7-4.9 Riley# 0.3 x10^3/UL 0.1-0.9 Gran % 57.9 % 42.2-75.2 Lymph % 35.0 % 20.5-51.1 Riley% 7.1 % 1.7-9.3 Lipid Profile 02/07/2015 Cholesterol 226 mg/dL High 120-200 Triglycerides 100 mg/dL 30-200 HDL Cholesterol 50 mg/dL 30-70 LDL (Calculated) 156 CALC High 0-129 VLDL Cholesterol 20 mg/dL 0-50 HDL Risk Factor 4.5 CALC High 0.0-4.4 Comprehensive Metabolic Prof 02/07/2015 Sodium 140 mEq/L 134-149 Potassium 4.5 mEq/L 3.6-5.5 Chloride 100 mEq/L 94-112 Carbon Dioxide 28 mEq/L 21-32 Glucose 86 mg/dL 70-105 BUN 15 mg/dL 6-26 Creatinine 1.1 mg/dL 0.6-1.4 BUN/Creat Ratio 13.6 CALC 8.0-36.0 Calcium 9.7 mg/dL 8.6-10.2 Total Protein 7.2 g/dL 6.4-8.3 Albumin 4.2 g/dL 3.8-5.5 Globulin 3.0 g/dL 2.0-4.8 A/G Ratio 1.4 CALC 0.6-2.3 Alk. Phosphatase 56 U/L 22-95 Alt (SGPT) 22 U/L 7-35 Ast (Sgot) 18 U/L 5-34 Total Bilirubin 0.4 mg/dL 0.2-1.3 Laboratory test finding 01/07/2015 Quickstrep NEG Negative Throat - Beta Strep Fma NEG@48HRS Ua - Micro ([facility]) 08/02/2014 Appearance CLEAR Color YELLOW Glucose, Urine (Fma/CMC/CTX) NEG Bilirubin NEG Ketones NEG SP Grav 1.020 Blood TRACE PH 7.0 Protein NEG Urobil 0.2 Nitrite NEG Leukocytes (Fma/CMC/Centrex) NEG Hyaline - /Lpf Granular - /Lpf WBC (Fma,Centrex) 0-1 RBC 2-3 Mucus - /Lpf Epith - /Lpf Bacteria - /Hpf Amorphous - /Lpf Crystals, Fluid (Fma/CMC/CTX) - Z#Comments - Surgical Pathology 11/26/2013 S RUN DATE: <SEE 14 NOTE> Clotest 12/28/2012 Clotest (SEE NOTE) 15 CBC Electronic ([facility]) 12/27/2012 WBC 4.9 3.6-9.6 RBC 4.89 3.90-5.70 Hemoglobin (Fma/CMC/CTX) 15.0 g/dL 12.1 - 17.2 Hematocrit (Fma/CMC/CTX) 44.5 % 36.1 - 50.3 Platelets 199 10^3/ul 150-400 Lymph% 32.4 20.5-51.1 Mixed% 7.6 Neutrophils % 60.0 Mean Corpuscular Vol 91 82.2-97.4 Mean Corpuscular Hemoglobin 30.6 27.6-33.3 Mean Corpuscular Hemo Concen 33.6 32.0-36.0 RDW 13.2 11.6-13.7 Mean Platelet Volume 5.9 Low 6.5-11.0 Lipid Profile 12/27/2012 Cholesterol 232 mg/dL High 120-200 HDL 46 mg/dL 30-70 Triglycerides 103 mg/dL 30-200 HDL Risk Factor 5.1 CALC High 0.0-4.4 LDL (Calculated) 166 CALC High 0-129 VLDL (Calculated) 21 mg/dL 0-50 Ua - Micro (a) 12/27/2012 Appearance clear Color yellow Glucose neg Bilirubin neg Ketones neg SP Grav 1.25 Blood trace-lysed PH 5.5 Protein neg Urobil 0.2 Nitrite neg Leukocytes (Fma/CMC/Centrex) neg Hyaline - /Lpf Granular - /Lpf WBC (Fma,Centrex) 0-1 RBC - Mucus - /Lpf Epith - /Lpf Bacteria - /Hpf Amorphous - /Lpf Crystals, Fluid (Fma/CMC/CTX) - Z#Comments - Comprehensive Metabolic Prof 12/27/2012 Albumin 4.8 g/dL 3.8-5.5 Alk. Phos. 66 U/L 22-95 Alt (SGPT) 17 U/L 10-40 Ast (Sgot) 19 U/L 5-34 BUN 23 mg/dL 6-26 Calcium 8.9 mg/dL 8.6-10.2 Chloride 102 mEq/L 94-112 Creatinine 1.3 mg/dL 0.6-1.4 Carbon Dioxide 25 mEq/L 21-32 Glucose 87 mg/dL 70-105 Sodium 139 mEq/L 134-149 Total Bilirubin 1.1 mg/dL 0.2-1.3 Total Protein 6.9 g/dL 6.3-8.1 Potassium 3.8 mEq/L 3.6-5.5 Globulin 2.1 g/dL 2.0-4.8 A/G Ratio 2.3 Calc 0.6-2.3 BUN/Creat Ratio 17.5 Calc 8.0-36.0 Laboratory test finding 12/27/2012 PSA 0.50 ng/mL 0.00-4.00 Laboratory test finding 12/12/2012 Stool Helicobacter pylori Negative Negative 16 Ag Influenza A&B 11/27/2012 Influenza A neg Influenza B pos Laboratory test finding 04/30/2012 Troponin I 0 NG/ML 17 CBC Auto Diff 04/30/2012 White Blood Count 7.1 10^3/uL 4.8-10.8 Red Blood Count 4.99 10^6/uL 4.0-5.4 Hemoglobin 16.0 g/dL 14.0-18.0 Hematocrit 46 % 42-52 Mean Corpuscular Volume 92 fL 80-94 Mean Corpuscular Hemoglobin 32 pg High 27-31 Mean Corpuscular HGB Conc 35 g/dL 31-36 Red Cell Distribution Width 13 % 10.5-15 Platelet Count 195 10^3/uL 150-450 Mean Platelet Volume 8 um3 7.4-10.4 Abs Neutrophils 5.4 10^3/uL 1.5-7.7 Abs Lymphocytes 0.9 10^3/uL Low 1.0-4.8 Abs Monocytes 0.6 10^3/uL 0-0.8 Abs Eosinophils 0.1 10^3/uL 0-0.6 Abs Basophils 0 10^3/uL 0-0.2 Abs Nucleated RBC 0.01 10^3/uL Granulocyte % 76.1 % 38-83 Lymphocyte % 12.6 % Low 25-47 Monocyte % 9.0 % 1-9 Eosinophil % 1.8 % 0-6 Basophil % 0.5 % 0-2 Nucleated Red Blood Cells % 0.1 Comp Metabolic Panel 04/30/2012 Sodium 134 mmol/L 133-145 Potassium 3.8 mmol/L 3.5-5.0 Chloride 103 mmol/L 101-111 Co2 Carbon Dioxide 25.0 mmol/L 22-32 Anion Gap 6.0 mmol/L 2-11 Glucose 107 mg/dL High 70-100 Blood Urea Nitrogen 23 mg/dL 6-24 Creatinine 1.30 mg/dL 0.50-1.40 BUN/Creatinine Ratio 17.7 8-20 Calcium 9.3 mg/dL 8.1-9.9 Total Protein 6.8 GM/DL 6.2-8.1 Albumin 3.9 GM/DL 3.6-5.4 Globulin 2.9 GM/DL 2-4 Albumin/Globulin Ratio 1.3 1-3 Total Bilirubin 0.9 mg/dL 0.1-1.0 18 Alkaline Phosphatase 68 U/L 30-110 Alt 19 U/L 14-54 Ast 20 U/L 12-42 Egfr Non- 56.9 >60 Egfr 73.2 >60 19 Laboratory test finding 04/30/2012 Lipase 48 U/L 22-51 Troponin I 0 NG/ML 20 Inr/Protime 04/30/2012 Inr 0.81 Low 0.82-1.17 21 Laboratory test finding 04/30/2012 Activated Partial 27.1 SEC 25.15- 38.53 Thrombo Time CBC Auto Diff 02/18/2012 White Blood Count 8.4 CUMM 4.8-10.8 Red Cell Count 4.45 CUMM Low 4.6-6.2 Hemoglobin 14.5 g/dL 14.0-18.0 Hematocrit 41 % Low 42-52 Mean Corpuscular Volume 91 um3 80-94 Mean Corpuscular Hemoglob 33 pg High 27-31 Mean Corpuscular HGB Cone 36 g/dL 32-36 Redcell Distribution WDTH 13 % 10.5-15 Platelet Count 201 CUMM 150-450 Mean Platelet Volume 7.6 um3 7.4-10.4 Gran % 67.7 % 38-83 Lymph % 16.7 % Low 20-45 Mononuclear % 11.6 % High 1-9 Eosinophil % 2.9 % 0-6 Basophil % 1.1 % 0-2 Abs Lymphs 1.4 1.0-4.8 Abs Mononuclear 1.0 High 0-0.8 Absolute Neutrophil Count 5.7 1.5-7.7 Abs Eosinophils 0.2 0-0.6 Abs Basophils 0.1 0-0.2 Comp Metabolic Panel 02/18/2012 Sodium 136 mmol/L 135-145 Potassium 3.9 mmol/L 3.5-5.0 Chloride 104 mmol/L 101-111 Co2 (Carbon Dioxide) 25.0 mmol/L 22-32 Anion Gap 7.0 mmol/L 2-11 22 Glucose 94 mg/dL 70-100 BUN 19 mg/dL 6-24 Creatinine 1.6 mg/dL High 0.50-1.40 One Over Creatinine 0.62 BUN/Creatinine Ratio 11.9 8-20 Calcium 9.3 mg/dL 8.1-9.9 Total Protein 7.1 GM/DL 6.2-8.1 Albumin 4.1 GM/DL 3.6-5.4 Globulin 3.0 GM/DL 2-4 Albumin/Globulin Ratio 1.4 1-3 Bilirubin Total 0.7 mg/dL 0.4-1.5 23 Alkaline Phosphatase 65 U/L 39-117 Alt (SGPT) 24 U/L 17-63 Ast (Sgot) 28 U/L 12-42 eGFR Non- 44.8 > 60 eGFR 57.6 > 60 24 Urinalysis 02/18/2012 Ua Color YELLOW Yellow Appearance-Urine CLEAR Clear Specific [place]-Ur 1.021 1.010-1.030 Esterase-Urine NEGATIVE Negative Nitrite NEGATIVE Negative [id number] NEGATIVE Negative Protein-Urine TRACE Negative PH-Urine 6.5 5-9 Blood-Urine NEGATIVE Negative Ketones-Urine NEGATIVE Negative Bilirubin-Ur NEGATIVE Negative Glucose-Urine NEGATIVE Negative Laboratory test 02/18/2012 C Reactive Protein < 0.5 mg/dL Less Than 0.5 finding Lyme Screen 02/18/2012 Lyme Disease Negative Negative 25 Serology Laboratory test 02/18/2012 Blood Culture 26 finding - <SEE NOTE> Laboratory test 02/18/2012 C. Difficile 27 finding Amplified Dna - <SEE NOTE> Laboratory test 02/18/2012 Urine Culture 28 finding Sensitivi - <SEE NOTE> Lipid Profile 04/08/2011 Cholesterol 220 mg/dL High 120-200 HDL 41 mg/dL 30-70 Triglycerides 118 mg/dL 30-200 HDL Risk Factor 5.3 CALC High 0.0-4.0 LDL (Calculated) 155 CALC High 0-129 VLDL (Calculated) 24 mg/dL 0-50 Surgical Pathology 03/12/2011 Surgical Pathology <SEE 29 NOTE> Ua - Non Micro (a) 11/06/2010 Appearance clear Color yellow Glucose neg Bilirubin neg Ketones neg SP Grav 1.025 Blood neg PH 6.5 Protein ssa:neg Urobil 0.2 Nitrite neg Leukocytes (Fma/CMC/Centrex) neg CBC Electronic ([facility]) 10/28/2010 WBC 4.7 3.6-9.6 RBC 5.28 3.90-5.70 Hemoglobin (Fma/CMC/CTX) 15.8 g/dL 12.1 - 17.2 Hematocrit (Fma/CMC/CTX) 48.2 % 36.1 - 50.3 Platelets 350 10^3/ul 150-400 Lymph% 27.6 20.5-51.1 Mixed% 9.0 Neutrophils % 63.4 Mean Corpuscular Vol 91 82.2-97.4 Mean Corpuscular Hemoglobin 30.0 27.6-33.3 Mean Corpuscular Hemo Concen 32.8 32.0-36.0 RDW 11.6 11.6-13.7 Mean Platelet Volume 8.7 6.5-11.0 Comprehensive Metabolic Prof 10/28/2010 Albumin 4.4 g/dL 3.8-5.5 Alk. Phos. 58 U/L 22-95 Alt (SGPT) 14 U/L 10-40 Ast (Sgot) 16 U/L 5-34 BUN 20 mg/dL 6-26 Calcium 9.7 mg/dL 8.6-10.2 Chloride 100 mEq/L 94-112 Creatinine 1.2 mg/dL 0.6-1.4 Carbon Dioxide 24 mEq/L 21-32 Glucose 95 mg/dL 70-105 Sodium 135 mEq/L 134-149 Total Bilirubin 0.7 mg/dL 0.2-1.3 Total Protein 6.7 g/dL 6.3-8.1 Potassium 4.2 mEq/L 3.6-5.5 Globulin 2.3 g/dL 2.0-4.8 A/G Ratio 1.9 Calc 0.6-2.2 BUN/Creat Ratio 16.0 Calc 8.0-36.0 Lipid Profile 10/28/2010 Cholesterol 222 mg/dL High 120-200 HDL 33 mg/dL 30-70 Triglycerides 129 mg/dL 30-200 HDL Risk Factor 6.7 CALC High 0.0-4.0 LDL (Calculated) 163 CALC High 0-129 VLDL (Calculated) 26 mg/dL 0-50 Laboratory test finding 10/28/2010 PSA 0.60 ng/mL 0.00-4.00 CBC ([facility]) 10/07/2009 WBC 5.7 3.6-9.6 RBC 5.33 3.90-5.70 Hemoglobin (Fma/CMC/CTX) 16.5 g/dL 12.1 - 17.2 Hematocrit (Fma/CMC/CTX) 48.1 % 36.1 - 50.3 Mean Corpuscular Vol 90.2 82.2-97.4 Mean Corpuscular Hemaglobin 31.0 27.6-33.3 Mean Corpuscular Hemo Concen 34.3 33.0-36.0 Platelets 193 10^3/ul 150-400 Lymph% 27.0 20.5-51.1 Mixed% 9.5 Neutrophils % 63.5 RDW 12.9 11.6-13.7 Mean Platelet Volume 8.9 7.4-10.4 Comprehensive Metabolic Prof 10/07/2009 Albumin 4.9 g/dL 3.8-5.5 Alk. Phos. 65 U/L 22-95 Alt (SGPT) 19 U/L 10-40 Ast (Sgot) 19 U/L 5-34 BUN 16 mg/dL 6-26 Calcium 9.9 mg/dL 8.6-10.2 Chloride 103 mEq/L 94-112 Creatinine 1.2 mg/dL 0.6-1.4 Carbon Dioxide 23 mEq/L 21-32 Glucose 96 mg/dL 70-105 Sodium 148 mEq/L 134-149 Total Bilirubin 0.6 mg/dL 0.2-1.3 Total Protein 7.5 g/dL 6.3-8.1 Potassium 4.8 mEq/L 3.6-5.5 Globulin 2.6 g/dL 2.0-4.8 A/G Ratio 1.9 Calc 0.6-2.2 BUN/Creat Ratio 13.4 Calc 8.0-36.0 Lipid Profile 10/07/2009 Cholesterol 252 mg/dL High 120-200 HDL 46 mg/dL 30-70 Triglycerides 211 mg/dL High 30-200 HDL Risk Factor 5.5 CALC 4.2-7.0 LDL (Calculated) 165 CALC High 0-129 VLDL (Calculated) 42 mg/dL 0-50 Laboratory test finding 10/07/2009 PSA 1.10 ng/mL 0.00-4.00 Ua - Micro (Fma) 10/03/2009 Appearance CLEAR Color YELLOW Glucose NEG Bilirubin NEG Ketones NEG SP Grav 1.010 Blood TRACE PH 5.5 Protein NEG Urobil 0.2 Nitrite NEG Leukocytes (Fma/CMC/Centrex) NEG Hyaline - /Lpf Granular - /Lpf WBC (Fma,Centrex) 3-4 RBC 1-3 Mucus - /Lpf Epith RARE /Lpf Bacteria RARE /Hpf Amorphous - /Lpf Crystals, Fluid (Fma/CMC/CTX) - Z#Comments - Laboratory test finding 04/29/2009 Lyme Disease,Igg/Igm 0.20 INDEX Negative 30, 31 Comprehensive Metabolic 08/02/2008 Albumin 4.2 g/dL 3.8-5.5 Prof Alk. Phos. 59 U/L 22-95 Alt (SGPT) 19 U/L 10-40 Ast (Sgot) 22 U/L 5-34 BUN 12 mg/dL 6-26 Calcium 9.4 mg/dL 8.6-10.2 Chloride 103 mEq/L 94-112 Creatinine 1.2 mg/dL 0.6-1.4 Carbon Dioxide 29 mEq/L 21-32 Glucose 86 mg/dL 70-105 Sodium 143 mEq/L 134-149 Total Bilirubin 0.9 mg/dL 0.2-1.3 Total Protein 6.7 g/dL 6.3-8.1 Potassium 4.6 mEq/L 3.6-5.5 Globulin 2.5 g/dL 2.0-4.8 A/G Ratio 1.7 Calc 0.6-2.2 BUN/Creat Ratio 10.4 Calc 8.0-36.0 Lipid Profile 08/02/2008 Cholesterol 202 mg/dL High 120-200 HDL 32 mg/dL 30-70 Triglycerides 174 mg/dL 30-200 HDL Risk Factor 6.3 CALC 4.2-7.0 LDL (Calculated) 135 CALC High 0-129 VLDL (Calculated) 35 mg/dL 0-50 Complete Blood Count 08/02/2008 WBC 5.2 x10^3/uL 3.6-9.6 Gran# 2.6 x10^3/uL 1.5-7.2 Gran% 50.1 % 42.2-75.2 HCT 45 % 36-50 HGB 15.8 g/dL 12.1-17.2 Lymph# 2.0 x10^3/uL 0.7-4.9 Lymph% 37.5 % 20.5-51.1 MCH 32.4 pg 27.6-33.3 MCV 91.6 fL 82.2-97.4 MCHC 35.3 g/dL 33.0-35.5 Mo# 0.6 x10^3/uL 0.1-0.9 Mo% 12.4 % High 1.7-9.3 MPV 10.0 fL 7.4-10.4 PLT 217 x10^3/uL 150-400 RBC 4.88 x10^6/uL 3.90-5.70 RDW 12.8 % 11.6-13.7 Laboratory test finding 08/02/2008 PSA 0.60 ng/mL 0.00-4.00 Ua - Non Micro (Fma) 08/02/2008 Appearance CLEAR Color YELLOW Glucose, Urine (Fma/CMC/CTX) NEG Bilirubin NEG Ketones NEG SP Grav 1.015 Blood NEG PH 7.0 Protein NEG Urobil 1.0 Nitrite NEG Leukocytes (Fma/CMC/Centrex) NEG Factor V Leiden Mut 08/02/2008 Factor V Leiden SEE BELOW 32 Comment: SEE BELOW 33 Comp Metabolic (Fma) Male 09/07/2005 Glucose, Serum (Fma/CMC/CTX) 77 mg/dL 70-105 BUN (Fma/CMC/Centrex) 12 mg/dL 6-26 Creatinine (Fma/CMC/CTX) 1.2 mg/dL 0.6-1.4 BUN/Creatinin Ratio 10.2 8.0-36 Sodium 141 134-149 Potassium 4.2 3.6-5.5 Chloride 102 mEq/L 94-112 Co2 27 21-32 Calcium (Fma/CMC/Centrex) 10.4 mg/dL High 8.6-10.2 34 Total Protein 7.5 g/dL 6.3-8.1 Albumin (Fma/CMCC/Centrex) 4.5 3.8-5.5 Globulin 3.0 2.0-4.8 A/G Ratio (Fma/CMC/Centrex) 1.5 0.6-2.2 Alk Phos (a) Male 63 U/L 22-95 Alt-M SGPT Male (a) 11 10-40 Ast Sgot 19 U/L 5-34 Bilirubin, Total 1.0 mg/dL 0.2-1.3 Lipid Profile(a) Male 09/07/2005 Cholesterol 238 mg/dL High 120-200 Triglyceride 232 mg/dL High 30-200 HDL Cholesterol (Fma) Male 32 mg/dL 30-70 LDL, Calculated (a/CMC) 160 CALC High 0-129 LDL Direct (/CMC/Centrex) - mg/dL 0-130 VLDL 46 0-50 HDL Risk Factor (a) 7.4 CALC High 4.2-7.0 Laboratory test finding 09/07/2005 PSA (a/CMC/Centrex) 0.81 0.0-4.0 CBC Electronic ([facility]) 09/07/2005 WBC 6.7 3.6-9.6 Lymphocytes 30.6 % 20.5 - 51.1 Monocytes 4.1 % 1.7-9.3 Granulocytes 65.3 % 42.2 - 75.2 Lymphocytes 2.1 10^3/uL 0.7 - 4.9 Monocytes 0.3 10^3/uL 0.1 - 0.9 Granulocytes 4.4 10^3/uL 1.5 - 7.2 RBC 5.38 3.90-5.70 Hemoglobin (Fma/CMC/CTX) 17.1 g/dL 12.1 - 17.2 Hematocrit (Fma/CMC/CTX) 49.6 % 36.1 - 50.3 Mean Corpuscular Vol 92.3 82.2-97.4 Mean Corpuscular Hemaglobin 31.8 27.6-33.3 Mean Corpuscular Hemo Concen 34.4 33.0-36.0 RDW 11.6 11.6-13.7 Platelets 288. 10^3/ul 150-400 Mean Platelet Volume 6.5 Low 7.4-10.4 Ua - Non Micro (a New) 09/07/2005 Appearance CLEAR Color LIGHT YELLOW Glucose NEGATIVE Bilirubin NEGATIVE Ketones NEGATIVE SP Grav 1.010 Blood NEGATIVE PH 7.0 Protein NEGATIVE Urobil 0.2 Nitrite NEGATIVE Leukocytes NEGATIVE Lipid Profile(a) Male 11/30/2004 Cholesterol 183 mg/dL 120-200 Triglyceride 166 mg/dL 30-200 HDL Cholesterol (a) Male 37 mg/dL 30-70 LDL, Calculated (Fma/CMC) 112 CALC 0-129 LDL, Direct - mg/dL 0-130 VLDL 33 0-50 HDL Risk Factor ([facility]) 4.9 CALC 4.2-7.0 CBC Electronic ([facility]) 09/08/2004 WBC 5.6 3.6-9.6 Lymphocytes 30.5 % 20.5 - 51.1 Monocytes 7.4 % 1.7-9.3 Granulocytes 62.1 % 42.2 - 75.2 Lymphocytes 1.7 10^3/uL 0.7 - 4.9 Monocytes 0.4 10^3/uL 0.1 - 0.9 Granulocytes 3.5 10^3/uL 1.5 - 7.2 RBC 5.26 3.90-5.70 Hemoglobin (Fma/CMC/CTX) 17.1 g/dL 12.1 - 17.2 Hematocrit (Fma/CMC/CTX) 48.2 % 36.1 - 50.3 Mean Corpuscular Vol 91.5 82.2-97.4 Mean Corpuscular Hemaglobin 32.5 27.6-33.3 Mean Corpuscular Hemo Concen 35.5 33.0-35.5 RDW 11.9 11.6-13.7 Platelets 256. 10^3/ul 150-400 Mean Platelet Volume 6.1 Low 7.4-10.4 Comp Metabolic (a) Male 09/08/2004 Glucose, Serum (Fma/CMC/CTX) 99 mg/dL 70-118 BUN (Fma/CMC/Centrex) 17 mg/dL 6-26 Creatinine (Fma/CMC/CTX) 1.2 mg/dL 0.6-1.4 BUN/Creatinin Ratio 15.0 8.0-36 Sodium 145 134-149 Potassium 4.7 3.6-5.5 Chloride 102 mEq/L 94-112 Co2 31 21-32 Calcium (Fma/CMC/Centrex) 10.0 mg/dL 8.6-10.2 Total Protein 7.3 g/dL 6.3-8.1 Albumin (Fma/CMC/Centrex) 4.5 3.8-5.5 Globulin 2.7 2.0-4.8 A/G Ratio (a/CMC) 1.7 0.6-2.2 Alk Phos (a) Male 64 U/L 22-95 Alt (SGPT) (Fma/CMC/Centrex) 16 10-40 Ast (Sgot) (Fma/CMC/Centrex) 14 U/mL 5-34 Total Bilirubin 0.8 Lipid Profile([facility]) 09/08/2004 Cholesterol 226 mg/dL High 120-200 Male (Fma/CMC/Centrex) Triglyceride 102 mg/dL 30-200 HDL Cholesterol (Fma) Male 44 mg/dL 30-70 LDL, Calculated (a/CMC) 162 CALC High 0-129 LDL, Direct (a/CMC) - mg/dL 0-130 VLDL 20 0-50 HDL Risk Factor (a) 5.1 CALC 4.2-7.0 Laboratory test finding 09/08/2004 PSA (a/CMC/Centrex) 0.74 0.0-4.0 1 Acute inflammation: >10.00 2 SEE RESULT BELOW Name: HUMBERTO CHOUDHURY : [address]: Hanna Bryan MD Acct: [id number] Unit: [id number] AGE: 62 Location: [place] [id number] Re07/13/17 Dis: 07/15/17 SEX: M Status: DIS IN SPEC: [id number] JUAN LUIS: 07/13/17-[address] [facility] [address]: Deepak Davis MD REQ: [id number] RECD: 07/13/17 STATUS: RES NORMANHR DR: Maurice Rene MD _ SOURCE: BLOOD,VENO SPDESC: ORDERED: Blood Cult Procedure Result Reported Site Aerobic Culture Bottle Preliminary 07/17/17- 5 ML No Growth Day 4 Anaerobic Culture Bottle Preliminary 07/17/17- 5 ML No Growth Day 4 * ML - MAIN LAB ([facility]) . END OF REPORT * ML=Testing performed at Main Lab DEPARTMENT OF PATHOLOGY, [address] [place] [address] Kilo Mcnair M.D. Director [facility] # [id number] 3 Critical Result LACT:3.2 Called to [id number] at: 22:27:12 by:[id number] Read back by:[id number] [facility] Severe Sepsis and Septic Shock Management Bundle Measure requires all lactic acids initially measuring >2.0 mmol/L be repeated. 4 Because ethnic data is not always readily available, this report includes an eGFR for both -Americans and non- Americans. The National Kidney Disease Education Program (NKDEP) does not endorse the use of the MDRD equation for patients that are not between the ages of 18 and 70, are , have extremes of body size, muscle mass, or nutritional status, or are non- or non-. According to the National Kidney Foundation, irrespective of diagnosis, the stage of the disease is based on the level of kidney function: Stage Description GFR(mL/min/1.73 m(2)) 1 Kidney damage with normal or decreased GFR 90 2 Kidney damage with mild decrease in GFR 60-89 3 Moderate decrease in GFR 30-59 4 Severe decrease in GFR 15-29 5 Kidney failure <15 (or dialysis) 5 Please note: The following may produce a false positive D Dimer test: - Rheumatoid factor greater than 60 IU/ml - Plasma hemoglobin greater than 0.05 gm/dl - Bilirubin greater than 50 mg/dl - Lipids greater than 1000 mg/dl - FDP greater than 20 ug/ml 6 Comment: repeat 7 [place] Severe Sepsis and Septic Shock Management Bundle Measure requires all lactic acids initially measuring >2.0 mmol/L be repeated. 8 Acute inflammation: >10.00 9 SEE RESULT BELOW Name: EDGARGIGIHUMBERTO WHITMAN : [address]: Ty Traore MD Acct: [id number] Unit: [id number] AGE: 62 Location: ED Re03/11/17 SEX: M Status: DEP ER SPEC: [id number] JUAN LUIS: 03/11/[address]: Corazon MO REQ: [id number] RECD: 03/11/17 STATUS: ROOPA HOLLIDAY DR: Ty Rene MD _ SOURCE: BLOOD,VENO SPDESC: ORDERED: Blood Cult Procedure Result Reported Site Aerobic Culture Bottle Final 03/16/17- 1005 ML No Growth Day 5 Anaerobic Culture Bottle Final 03/16/17- 1005 ML No Growth Day 5 * ML - [facility] ([facility]) . END OF REPORT * ML=Testing performed at Main Lab DEPARTMENT OF PATHOLOGY, [address] [place] [address] Kilo Mcnair M.D. Director [facility] # [id number] 10 Because ethnic data is not always readily available, this report includes an eGFR for both -Americans and non- Americans. The National Kidney Disease Education Program (NKDEP) does not endorse the use of the MDRD equation for patients that are not between the ages of 18 and 70, are , have extremes of body size, muscle mass, or nutritional status, or are non- or non-. According to the National Kidney Foundation, irrespective of diagnosis, the stage of the disease is based on the level of kidney function: Stage Description GFR(mL/min/1.73 m(2)) 1 Kidney damage with normal or decreased GFR 90 2 Kidney damage with mild decrease in GFR 60-89 3 Moderate decrease in GFR 30-59 4 Severe decrease in GFR 15-29 5 Kidney failure <15 (or dialysis) 11 SEE RESULT BELOW Name: HUMBERTO CHOUDHURY : [address]: Ty Traore MD Acct: [id number] Unit: [id number] AGE: 62 Location: ED Re03/11/17 SEX: M Status: DEP ER SPEC: [id number] JUAN LUIS: 03/11/[address]: Corazon MO REQ: [id number] RECD: 03/11/17 STATUS: JUANA HOLLIDAY DR: Ty Rene MD _ SOURCE: BLOOD,VENO SPDESC: ORDERED: Blood Cult Procedure Result Reported Site Aerobic Culture Bottle Preliminary 03/12/17- 1005 ML No Growth Day 1 Anaerobic Culture Bottle Preliminary 03/12/17- 1005 ML No Growth Day 1 * ML - MAIN LAB ([facility]) . END OF REPORT * ML=Testing performed at Main Lab DEPARTMENT OF PATHOLOGY, [address] [place] [address] Kilo Mcnair M.D. Director [facility] # [id number] 12 Critical Result LACT:2.2 Called to CLAYTON at: 10:14 by:[id number] Read back by:CLAYTON [facility] Severe Sepsis and Septic Shock Management Bundle Measure requires all lactic acids initially measuring >2.0 mmol/L be repeated. 13 SEE RESULT BELOW Name: HUMBERTO CHOUDHURY : [address]: Jeet Baum MD Acct: [id number] Unit: [id number] AGE: 61 Location: ENDO Re04/12/16 SEX: M Status: REG REF SPEC: [id number] JUAN LUIS: 04/12/[address] [facility] [address]: Jeet Baum MD REQ: [id number] RECD: 04/12/16 STATUS: CARLOS HOLLIDAY DR: Maurice Rene MD _ ORDERED: LEVEL IV FINAL DIAGNOSIS Colon, at 60 cm, biopsy: -- Tubular adenoma. -- No high grade dysplasia or malignancy. CLINICAL HISTORY No history given POST-OPERATIVE DIAGNOSIS Colonoscopy to cecum - polyp at 60 cm biopsied; 5 years GROSS DESCRIPTION The specimen is received in formalin labeled, Biopsy Colon Polyp at 60 cm, and consists of a 0.6 x 0.4 x 0.2 cm aggregate of boggs-pink irregular soft tissue fragments, which is submitted entirely in one cassette. Signed (signature on file) Sury Hernandez MD 10/24 1642 END OF REPORT * ML=Testing performed at Main Lab DEPARTMENT OF PATHOLOGY, [facility] [place], [place] [address] Kilo Mcnair M.D. Director [facility] # [id number] 14 RUN DATE: 11/27/13 [facility] LAB LIVE PAGE 1 RUN TIME: 1525 [facility] [address] [place], [place] [address] Specimen Inquiry Name: HUMBERTO CHOUDHURY : [address]: Jeet Baum MD Acct: [id number] Unit: [id number] AGE: 58 Location: ENDO Re11/26/13 SEX: M Status: REG REF SPEC: [id number] JUAN LUIS: 11/26/13- SUBM DR: Jeet Baum MD REQ: [id number] RECD: 11/26/13 STATUS: CARLOS HOLLIDAY DR: Maurice Rene MD _ ORDERED: LEVEL IV FINAL DIAGNOSIS [place], biopsy: A. Gastroesophageal transition zone mucosa with nonspecific reactive squamous and glandular epithelial changes. B. No goblet cell metaplasia or dysplasia identified. CLINICAL HISTORY Abdominal pain for EGD POST-OPERATIVE DIAGNOSIS Esophagus - eosinophilic esophagitis, stomach - normal, duodenum - normal. GROSS DESCRIPTION The specimen is received in formalin labeled Humberto JeffSandrine Choudhury, GE Junction Biopsy and consists of a 0.3 x 0.3 x 0.1 cm. boggs-white, irregular, soft tissue fragment. Submitted entirely, one cassette. Signed (signature on file) Kilo Mcnair MD 1528 END OF REPORT * ML=Testing performed at Main Lab DEPARTMENT OF PATHOLOGY, [address] [place] [address] Kilo Mcnair M.D. Director [facility] # [id number] 15 RUN DATE: 12/29/12 [facility] LAB LIVE PAGE 1 RUN TIME: [address] [place] [address] Specimen Inquiry Name: ALEXHUMBERTO Jeff : [address]: Jeet Baum MD Acct: [id number] Unit: [id number] AGE: 57 Location: ENDO Re12/28/12 SEX: M Status: REG REF SPEC: [id number] JUAN LUIS: 12/28/[address] [facility] [address]: Jeet Baum MD REQ: [id number] RECD: 12/28/12 STATUS: ROOPA HOLLIDAY DR: Maurice Rene MD _ SOURCE: GAS ANTRUM SPDESC: ORDERED: Clotest Procedure Result Verified Site Clotest Final 12/29/12- 0730 ML Clotest Negative END OF REPORT * ML=Testing performed at Main Lab DEPARTMENT OF PATHOLOGY, [address] [place] [address] Kilo Mcnair M.D. Director [facility] Permit #[id number] 16 Test Performed by: [facility] [place] [address] Reefer Engineer: Oumar Mccann III, M.D. 17 Reference Range and Interpretation: TnI (ng/ml) Interpretation Less Than 0.06 ng/mL Not supportive of diagnosis of [place] 0.06 - 0.50 ng/ml Indeterminate: suggest serial studies if clinically indicated. Greater than 0.5 ng/mL Consistent with diagnosis of KS 18 A metabolite of Naproxen, O-desmethylnaproxen, has been shown to interfere with the Jendrfrankyik-Rockleigh method for measuring total bilirubin. Samples from patients who have taken Naproxen have shown spurious elevation in total bilirubin levels. 19 Because ethnic data is not always readily available, this report includes an eGFR for both -Americans and non- Americans. The National Kidney Disease Education Program (NKDEP) does not endorse the use of the MDRD equation for patients that are not between the ages of 18 and 70, are , have extremes of body size, muscle mass, or nutritional status, or are non- or non-. According to the National Kidney Foundation, irrespective of diagnosis, the stage of the disease is based on the level of kidney function: Stage Description GFR(mL/min/1.73 m(2)) 1 Kidney damage with normal or decreased GFR 90 2 Kidney damage with mild decrease in GFR 60-89 3 Moderate decrease in GFR 30-59 4 Severe decrease in GFR 15-29 5 Kidney failure <15 (or dialysis) 20 Reference Range and Interpretation: TnI (ng/ml) Interpretation Less Than 0.06 ng/mL Not supportive of diagnosis of [place] 0.06 - 0.50 ng/ml Indeterminate: suggest serial studies if clinically indicated. Greater than 0.5 ng/mL Consistent with diagnosis of [place] 21 Effective April 10, 2012, in conjunction with the upgrade of the hospital information system, [facility] will release the International Normalized Ratio (INR) only. Patient reports will no longer contain prothrombin time (PT) results in seconds. This allows for consistency in patient evaluation and treatment. The INR was adopted by the World Health Organization (WHO) in 1983 as a standardized system of reporting PT. The Centers for Disease Control (CDC) states that reporting of PT results in INR only is the preferred method. Recommended INR for Patients on Oral Anticoagulants Prophylaxis 2.0 - 3.0 Treatment of thrombosis 2.0 - 3.0 Prevention of embolism 2.0 - 3.0 Prevention of embolism from prosthetic heart valves 2.5 - 3.5 22 Anion gap measurement may be of limited value in the presence of any alkalosis, especially in a combined acid base disorder. . 23 A metabolite of Naproxen, O-desmethylnaproxen, has been shown to interfere with the Jendrassik-Lars method for measuring total bilirubin. Samples from patients who have taken Naproxen have shown spurious elevation in total bilirubin levels. 24 Because ethnic data is not always readily available, this report includes an eGFR for both -Americans and non- Americans. The National Kidney Disease Education Program (NKDEP) does not endorse the use of the MDRD equation for patients that are not between the ages of 18 and 70, are , have extremes of body size, muscle mass, or nutritional status, or are non- or non-. According to the National Kidney Foundation, irrespective of diagnosis, the stage of the disease is based on the level of kidney function: Stage Description GFR(mL/min/1.73 m(2)) 1 Kidney damage with normal or decreased GFR 90 2 Kidney damage with mild decrease in GFR 60-89 3 Moderate decrease in GFR 30-59 4 Severe decrease in GFR 15-29 5 Kidney failure <15 (or dialysis) 25 Serologic response to B. burgdorferi infection is not detected, but cannot rule out early infection during which low or undetectable antibody levels to B. burgdorferi may be present. If clinically indicated, a new serum specimen should be submitted in 7-14 days. Test Performed by: [address] [address] Reefer Engineer: Oumar Mccann III, M.D. 26 RUN DATE: 02/23/12 [facility] NMI LIVE PAGE 1 RUN TIME: 604 Specimen Inquiry RUN USER: INTERFACE Name: EDGARHUMBERTO CARO Status: TICO KRAUSE Re02/18/12 Age/Sex: 57/M Unit#: [id number] Location: [place] : 55 SPEC #: [id number] JUAN LUIS: 02/18/12 STATUS: ROOPA REQ #: [id number] RECD: 02/18/[address] [facility] [address]: Behzad Buck MD,[facility] SOURCE: BLOOD ENTR: 02/18/[address]: Edgard SANDS,[facility]: BLOOD,VENO ORDERED: BLOOD CULTURE ACT WKST: 02/19/12 #1 Procedure Result Verified Site > AEROBIC CULTURE BOTTLE Final -0605 ML NO GROWTH AFTER 5 DAYS > ANAEROBIC CULTURE BOTTLE Final -0605 ML NO GROWTH AFTER 5 DAYS ML - [facility] Permit #[id number] [address] [place] [address] DEPARTMENT OF PATHOLOGY, [address] [place] [address] [facility] Permit #[id number] Kilo Mcnair M.D. Director Romulo Hyatt M.D. [employer] 27 RUN DATE: 02/18/12 [facility] NMI LIVE PAGE 1 RUN TIME: 6122 Specimen Inquiry RUN USER: INTERFACE Name: HUMBERTO CHOUDHURY Status: DEP ER Re02/18/12 Age/Sex: 57/M Unit#: [id number] Location: [facility] : 55 SPEC #: [id number] JUAN LUIS: 02/18/12 STATUS: ROOPA REQ #: [id number] RECD: 02/18/[address] [facility] [address]: Behzad Buck MD,[facility] SOURCE: STOOL ENTR: 02/18/[address]: Edgard SANDS,[facility]: ORDERED: C. DIFF AMP DNA Procedure Result Verified Site > C. DIFFICILE AMPLIFIED DNA Final -1428 ML C. DIFFICILE AMPLIF DNA NEGATIVE: NO TOXIGENIC C. DIFFICILE DETECTED. TEST LIMITATIONS: Assay does not distinguish between viable and non-viable organisms. Test results are to be used in conjunction with information available from the patient clinical evaluation and other diagnostic procedures. Two distinct groups have been identified that can harbor C. difficile asymptomatically at very high rates. Colonization at rates up to 50% and higher have been reported in infants and rates up to 32% in cystic fibrosis patients. [facility] Permit #[id number] [address] [place] [address] DEPARTMENT OF PATHOLOGY, [address] [place] [address] [facility] Permit #[id number] Elise Bush M.D. [employer] 28 RUN DATE: 02/20/12 [facility] NMI LIVE PAGE 1 RUN TIME: 855 Specimen Inquiry RUN USER: INTERFACE Name: HUMBERTO CHOUDHURY Status: TICO KRAUSE Re02/18/12 Age/Sex: 57/M Unit#: [id number] Location: : 55 SPEC #: [id number] JUAN LUIS: 02/18/12 STATUS: COMP REQ #: [id number] RECD: 02/18/[address] [facility] [address]: Behzad Buck MD,[facility] SOURCE: URINE ENTR: 02/18/[address]: Edgard SANDS,[facility]: ORDERED: URINE C S COMMENTS: SPECIMEN DESCRIPTION: URINE, CLEAN CATCH ACT WKST: UR 02/20/12 #1 Procedure Result Verified Site > URINE CULTURE SENSITIVI Final -854 ML SCANT NORMAL URETHRAL OR PERINEAL ELEAZAR - [facility] Permit #[id number] [address] [place] [address] DEPARTMENT OF PATHOLOGY, [address] [place] [address] [facility] Permit #[id number] Elise Bush M.D. [employer] 29 ---- RUN DATE: 03/16/11 [facility] NMI LIVE PAGE 1 RUN TIME: 1324 Specimen Inquiry RUN USER: INTERFACE -- Name: HUMBERTO CHOUDHURY Status: REG REF Re03/12/11 Age/Sex: 56/M Unit#: [id number] Location: [facility]. : 55 -- Specimen: [id number] Spec Date: 03/12/[address]: Jeet thomas MD Spec Type: SURGICAL P Received: 03/12/11-1242 Copies to: Maurice Rene MD SPECIMEN 1) CECAL POLYP 2) POLYP OF ASCENDING COLON HISTORY POST-OP DIAGNOSIS: Colonoscopy to ceucm. Two polyps. CLINICAL INFORMATION: Screening. GROSS DESCRIPTION 1) The specimen is received in formalin labelled Humberto Choudhury, Cecal Polyp, and consists of one fragment of yellow tissue measuring 0.8 x 0.4 x 0.4 cm. Submitted entirely, one cassette labelled 1. 2) The specimen is received in formalin labelled Humberto FSandrine Choudhury, Polyp of Ascending Colon, and consists of multiple minute fragments of yellow tissue measuring in aggregate 1.2 x 1.0 x 0.2 cm. The specimen is filtered. Submitted entirely, one cassette labelled 2. DIAGNOSIS 1) Colon, cecum, biopsy: A. Tubular adenoma. B. No high grade dysplasia or malignancy. 2) Colon, ascending, biopsy: A. Fragments of tubular adenoma. B. No high grade dysplasia is identified. Signed Electronically by: KILO MCNAIR MD 03/16/11 [id number] -- -- DEPARTMENT OF PATHOLOGY, [address] [place] [address] [facility] Permit #[id number] Elise Bush M.D. [employer] Executive Director Dir neumannor -- 30 1 SST 31 < or=0.80 Negative 0.81 - 1.20 Equivocal >1.20 Positive 32 Result: Negative (no mutation found) . Factor V Leiden is a specific mutation ([id number]) in the factor V gene that is associated with an increased risk of venous thrombosis. Factor V Leiden is more resistant to inactivation by activated protein C. As a result, factor V persists in the circulation leading to a mild hyper- coagulable state. The Leiden mutation accounts for 90% - 95% of APC resistance. Factor V Leiden has been reported in patients with deep vein thrombosis, pulmonary embolus, central retinal vein occlusion, cerebral sinus thrombosis and hepatic vein thrombosis. Other risk factors to be considered in the workup for venous thrombosis include the [id number] mutation in the factor II (prothrombin) gene, protein S and C deficiency, and antithrombin deficiencies. Anticardiolipin antibody and lupus anticoagulant analysis may be appropriate for certain patients, as well as homocysteine levels. . Contact your local [facility] for information on how to order additional testing if desired. 33 Genetic counselors are available for health care providers to discuss results at [phone]. . Methodology: DNA analysis of the Factor V gene was performed by allele- specific PCR followed by gel electrophoresis. The diagnostic sensitivity and specificity is >99% for both. Molecular- based testing is highly accurate, but as in any laboratory test, diagnostic errors may occur. All test results must be combined with clinical information for the most accurate interpretation. . References: Radha Alston (1996). Clin Lab Med 16:169-186. . Lalit Pappas, Ph.D. Marni Smith, Ph.D. Felisa Arroyo, Ph.D. Radha Dejesus, Ph.D. Dania Griggs, Ph.D. Garett Paris.Josie. 34 RESULT VERIFIED BY REPEAT ANALYSIS Procedures Date CPT Code Description Status 04/12/2016 Colonoscopy Completed 02/07/2015 88185 Electrocardiogram Complete Completed 02/18/2012 99838 Pulse Oximetry Completed 03/12/2011 Colonoscopy Completed 07/15/2009 02675 Pulse Oximetry Completed 08/02/2008 17104 Electrocardiogram Complete Completed 02/08/2006 Colonoscopy Completed 09/01/2004 40175 Electrocardiogram Complete Completed 10/02/1997 75737 Anoscopy Diagnostic Completed Encounters Type Date Location Provider CPT E/M Dx Office Visit 08/17/2017 10:20a Main Office Maurice Rene M.D. 25926 J18.9 H65.23 Office Visit 07/20/2017 2:40p Main Office Maurice Rene M.D. 73880 J18.9 Office Visit 05/18/2017 11:30a [facility] Tess Redmond SCARLET Leo 29946 H81.10 Office Visit 08/18/2016 10:20a Main Office Maurice Rene M.D. 97901 Z00.00 Office Visit 02/07/2015 10:20a Main Office Maurice Rene M.D. 67040 V06.1 v06.5 v05.8 V70.0 Office Visit 01/07/2015 10:00a [facility] Maurice Rene M.D. 88661 462 Office Visit 11/11/2014 9:00a Main Office Blaze Strong-C 47210 461.9 477.9 Office Visit 10/22/2014 9:45a Main Office Blaze Strong-C 51711 461.9 465.8 477.9 Office Visit 08/02/2014 11:20a [facility] Wong Hill M.D. 24559 599.70 Office Visit 04/30/2014 3:10p Main Office Felicia Mitchell M.D. 34201 477.9 Office Visit 12/27/2012 10:20a Main Office Maurice Rene M.D. 98995 V70.0 599.72 V76.44 V76.41 Office Visit 11/27/2012 5:30p Main Office Elisa Iyer M.D. 63425 478.9 465.9 Office Visit 09/08/2012 10:45a [place] [address] 386.9 Office Visit 05/08/2012 6:20p Main Office Elisa Iyer M.D. 18053 604.90 724.3 Office Visit 02/18/2012 3:00p [facility] Ratna ToribioSpringnp-C 24487 780.60 Office Visit 02/15/2012 11:10a [facility] Maurice Rene M.D. 31078 682.9 Office Visit 02/11/2012 1:10p Main Office Maurice Rene M.D. 08974 682.9 Office Visit 02/09/2012 1:10p Main Office Mauirce Rene M.D. 69523 682.9 Office Visit 09/11/2011 10:00a Main Office Ton Barragan M.D. 30021 462 465.9 Office Visit 05/13/2011 2:45p [facility] Ratna ContrerasRobert 13154 726.32 Office Visit 11/06/2010 3:20p Main Office Maurice Rene M.D. 58808 V70.0 Office Visit 08/24/2010 9:40a Main Office Maurice Rene M.D. 95881 727.43 Office Visit 10/03/2009 3:20p Main Office Maurice Rene M.D. 22506 599.72 V70.0 Office Visit 07/15/2009 3:40p [facility] Chadd Chadwick M.D. 00674 466.0 Office Visit 04/29/2009 3:30p [facility] Chadd Chadwick M.D. 80403 782.1 Office Visit 08/02/2008 10:20a Main Office Maurice Rene M.D. 68371 V77.1 272.9 780.79 V76.44 V70.0 Office Visit 07/09/2008 9:15a [facility] Esther HusainRobetr benoit 51860 462 Office Visit 09/02/2006 3:00p [place] [address] 724.2 Office Visit 09/07/2005 3:20p [facility] Maurice Rene M.D. 05115 V70.0 278.02 V76.44 Office Visit 12/09/2004 2:10p [facility] Chadd Chadwick M.D. 89244 460 Office Visit 09/01/2004 10:20a [facility] Maurice Rene M.D. 45715 V70.0 Office Visit 05/26/2004 2:20p [facility] Maurice Rene M.D. 14010 789.30 Plan of Care Future Appointment(s):11/08/2017 10:20 am - Maurice Rene M.D. at [facility] Ypypws0509/22/2017 - Felicia Mitchell M.D.R09.1 PleurisyComments:Reviewed warning signs and symptoms. Reasons to return to office or proceed to emergency room discussed including but not limited to no improvement or worsening of symptoms. Advised to call the office for any questions or concerns. Patient verbalized understanding. trial aleve for pleurisy, check xray for further resolution of PNA, if symptoms worsen or persist to repeat CT chest per patient preference ;J18.9 Pneumonia, unspecified organismAllComments:~B_~U_Medication Management~b_~u_ Patient Understands medications he's taking? Yes No Are there Barriers to Adherence? Yes No Has the patient been asked about herbal supplements and therapies, and OTC meds? Yes No
--- NOTE | 2017-10-09 09:45 | RAD ---
HISTORY: Syncope COMPARISONS: None TECHNIQUE: Multiple contiguous axial CT scans were obtained of the head without intravenous contrast. FINDINGS: HEMORRHAGE/INFARCT: There is no hemorrhage or acute infarct. MASSES/SHIFT: There is no mass or shift. EXTRA-AXIAL SPACES: There are no extra-axial fluid collections. SULCI AND VENTRICLES: The sulci and ventricles are normal in size and position for the patient's stated age. CEREBRUM: There are no focal parenchymal abnormalities. BRAINSTEM: There are no focal parenchymal abnormalities. CEREBELLUM: There are no focal parenchymal abnormalities. VESSELS: The vessels are grossly normal. PARANASAL SINUSES: There is a mucous retention cyst versus polypoid mucosal thickening of the left maxillary sinus. ORBITS: The orbits are unremarkable. BONES AND SOFT TISSUE: No bone or soft tissue abnormalities are noted. OTHER: None IMPRESSION: NO ACUTE INTRACRANIAL PATHOLOGY.
--- NOTE | 2017-10-09 09:46 | RAD ---
HISTORY: Syncope, neck pain COMPARISONS: None TECHNIQUE: Multiple contiguous axial CT scans were obtained of the cervical spine without intravenous contrast, with coronal and sagittal multiplanar reformations. FINDINGS: BRAIN: The visualized brain is unremarkable CENTRAL CANAL: Evaluation of the central canal is limited on CT technique; however, there is no obvious canalicular mass or epidural hemorrhage. ALIGNMENT: The alignment is normal, without subluxation or dislocation. VERTEBRAL BODIES: The odontoid process is intact. The atlantoaxial intervals are symmetric. The vertebral bodies are normal in attenuation, without fracture. There is mild anterolateral marginal osteophyte formation. JOINTS: There is no subluxation or dislocation. MUSCULATURE: Unremarkable INTERVERTEBRAL DISCS: There is mild diffuse loss of intervertebral disc height. AXIAL IMAGES: C2-C3: There is no osseous neural foraminal narrowing or central canal stenosis. C3-C4: There is no osseous neural foraminal narrowing or central canal stenosis. C4-C5: There is no osseous neural foraminal narrowing or central canal stenosis. C5-C6: There is no osseous neural foraminal narrowing or central canal stenosis. C6-C7: There is no osseous neural foraminal narrowing or central canal stenosis. C7-T1: There is no osseous neural foraminal narrowing or central canal stenosis. SOFT TISSUES: The visualized soft tissues of the neck are unremarkable. The prevertebral fat stripe is preserved. OTHER: None. IMPRESSION: MILD DEGENERATIVE CHANGES. NO ACUTE OSSEOUS INJURY TO THE CERVICAL SPINE.
[2017-10-09 09:55] LABS: Hematocrit 43 % (42-52); Hemoglobin 14.9 g/dl (14.0-18.0); Mean Corpuscular HGB Conc 35 g/dl (31-36); Mean Corpuscular Hemoglobin 31 pg (27-31); Mean Corpuscular Volume 88 fL (80-94); Mean Platelet Volume 6.7 um3 (7.4-10.4); Platelet Count 168 10^3/ul (150-450); Red Blood Count 4.88 10^6/ul (4.0-5.4); Red Cell Distribution Width 13 % (10.5-15); White Blood Count 10.3 10^3/ul (3.5-10.8)
[2017-10-09 10:01] LABS: ABS Basophils 0.1 10^3/ul (0-0.2); ABS Eosinophils 0.1 10^3/ul (0-0.6); ABS Lymphocytes 1.2 10^3/ul (1.0-4.8); ABS Monocytes 0.8 10^3/ul (0-0.8); ABS Nucleated RBC 0 10^3/ul; Eosinophil % 1.4 % (0-6); Lymphocyte % 11.9 % (25-47); Nucleated Red Blood Cells % 0
[2017-10-09 10:11] LABS: EGFR Non-African American 56.9 (>60)
[2017-10-09] MEDS ORDERED: Aspirin 81 mg CHEW TAB* 81 MG TAB.CHEW PO ONE (10:21)
--- NOTE | 2017-10-09 10:56 | RAD ---
HISTORY: Syncope COMPARISONS: September 22, 2017 VIEWS: 1: frontal portable view of the chest at 10:45 AM FINDINGS: LINES AND TUBES: None. CARDIOMEDIASTINAL SILHOUETTE: The cardiomediastinal silhouette is normal for portable technique. PLEURA: The costophrenic angles are sharp. No pleural abnormalities are noted. LUNG PARENCHYMA: The lungs are clear. ABDOMEN: The upper abdomen is clear. There is no subphrenic gas. BONES AND SOFT TISSUES: No bone or soft tissue abnormalities are noted. IMPRESSION: NO ACTIVE CARDIOPULMONARY DISEASE.
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
[2017-10-09] MEDS ORDERED: Ondansetron INJ* 2 MG/ML VIAL IV PRN (12:02)
[2017-10-09] MEDS ORDERED: Clobetasol 0.05% OINT* 30 GM TUBE TOPICAL PRN (12:08)
[2017-10-09] MEDS ORDERED: Magnesium Sulfate 2 GM IV* 2 GM/50 ML BAG IVPB ONE (12:10)
[2017-10-09] MEDS ORDERED: Heparin VIAL(*) 5000 UNITS/ML VIAL (FIVE THOUSAND) ONE (12:34)
[2017-10-09] MEDS ORDERED: Heparin VIAL(*) 5000 UNITS/ML VIAL (FIVE THOUSAND) IV ONE (12:43)
[2017-10-09] MEDS ORDERED: NS 0.9% 1000 ML* 1,000 ML IV ONE ×2 (12:50→16:15)
[2017-10-09] MEDS: Heparin DRIP 25,000 UNITS(*) 25,000 UNITS/500 ML BAG IV SCH (12:51)
[2017-10-09 13:38] LABS: EGFR Non-African American 63.2 (>60)
--- NOTE | 2017-10-09 14:25 | ECHO ---
Patient: HUMBERTO JOHNSON [facility] Rec#: [id number] : 1955 Date: 10/09/2017 Age: 62y Height: 172.72 cm / 68.0 in Weight: 104.33 kg / 229.9 lbs Sex: M BSA: 2.17 Room#: -15 Admit Date#: 10/09/2017 Type: Inpatient Referring: Darnell Morrison NP Reading: Aleyda Shah MD Forklift Technician: Brielle Huber RDCS CC: Maurice Rene MD Transthoracic Echocardiogram Indication: Syncope BP: 114/82 HR: 109 Rhythm: Tachycardia Findings History: Former smoker, recent pneumonia vs PE 07/28, GERD. Technical Comments: The study quality is fair. The study is technically limited due to patient body habitus. Completed at 1300. Left Ventricle: The left ventricular chamber size is decreased. Mild concentric left ventricular hypertrophy is observed. Basal interventricular septum shows moderate thickening. Global left ventricular wall motion and contractility are within normal limits. The left ventricle appears hyperdynamic. The estimated ejection fraction is greater than 65%. There is septal flattening of the interventricular septum consistent with right ventricular volume or pressure overload. There is no consistent Doppler evidence of clinically significant diastolic dysfunction. Left Atrium: The left atrial chamber size is normal. Right Ventricle: Moderator Band present. The right ventricle is moderate to severely dilated. The right ventricular global systolic function is moderately reduced. Right Atrium: The right atrial cavity size is normal. Aortic Valve: The aortic valve is trileaflet. The aortic valve leaflets are mildly thickened. There is no evidence of aortic regurgitation. There is no evidence of aortic stenosis. Mitral Valve: The mitral valve leaflets do not appear thickened. There is a trace of mitral regurgitation. There is no evidence of mitral stenosis. Tricuspid Valve: The tricuspid valve leaflets are normal. There is mild tricuspid regurgitation. The right ventricular systolic pressure is estimated at 49 mmHg. There is evidence of moderate pulmonary hypertension. There is no tricuspid stenosis. Pulmonic Valve: The pulmonic valve appears normal. There is a trace pulmonic regurgitation. There is no pulmonic stenosis. Pericardium: There is no significant pericardial effusion. A pericardial fat pad is visualized. Aorta: There is no dilatation of the ascending aorta. There is no dilatation of the aortic arch. The aortic root is normal in size. Pulmonary Artery: The main pulmonary artery appears normal. Venous: The venous system is not well visualized. The inferior vena cava appears normal in size. There is less than 50% respiratory change in the inferior vena cava dimension. Conclusions The left ventricular chamber size is decreased. Mild concentric left ventricular hypertrophy is observed. Global left ventricular wall motion and contractility are within normal limits. The left ventricle appears hyperdynamic. The estimated ejection fraction is greater than 65%. The right ventricle is moderate to severely dilated. The right ventricular global systolic function is moderately reduced. There is mild tricuspid regurgitation. There is evidence of moderate pulmonary hypertension: 49 mmHg. No prior echo to compare. Measurements Name Value Normal Range RVIDd (AP) 2D 3.1 cm (0.9 - 2.6) RVDdMajor (2D) 5.8 cm (2.2 - 4.4) RAd ISD 4CH 4.9 cm (3.4 - 4.9) RA (A4C)W 4.3 cm (2.9 - 4.6) IVSd (2D) 1.4 cm (0.6 - 1) LVPWd (2D) 1.2 cm (0.6 - 1) LVIDd (2D) 3.4 cm (3.6 - 5.4) LVIDs (2D) 2.2 cm - LV FS (2D) 35 % (25 - 45) Aortic Annulus 2.2 cm (1.4 - 2.6) Ao root diameter (2D) 3.4 cm (2.1 - 3.5) Ascending Ao 3.4 cm (2.1 - 3.4) Aortic arch 2.7 cm (1.8 - 3.4) LA dimension (AP) 2D 3.1 cm (2.3 - 3.8) LAd ISD 4CH 4.9 cm (2.9 - 5.3) LA ISD 4CH W 4.3 cm (2.5 - 4.5) Name Value Normal Range LA ESV SP 4CH (A/L) 71 ml - LA ESV SP 2CH (A/L) 56 ml - LA ESV BP (A/L) 67 ml - LA ESV BP (A/L) index 31 ml/m2 - LA ESV SP 4CH (MOD) 65 ml - LA ESV SP 2CH (MOD) 53 ml - Name Value Normal Range MV E-wave Vmax 0.4 m/sec - MV deceleration time 95.05 msec - MV A-wave Vmax 0.83 m/sec - MV E:A ratio 0.48 ratio - LV septal e' Vmax 0.06 m/sec - LV lateral e' Vmax 0.06 m/sec - LV E:e' septal ratio 6.67 ratio - LV E:e' lateral ratio 6.67 ratio - Name Value Normal Range AV Vmax 1.06 m/sec - AV VTI 18.89 cm - AV peak gradient 4.57 mmHg - AV mean gradient 2.67 mmHg - LVOT Vmax 1 m/sec - LVOT VTI 17.9 cm - LVOT peak gradient 4.03 mmHg - LVOT mean gradient 2.07 mmHg - RICH Vmax 0.79 m/sec - Name Value Normal Range TR Vmax 3.4 m/sec - TR peak gradient 46 mmHg - RAP 3 mmHg - RVSP 49 mmHg - IVC diameter 1.8 cm - Name Value Normal Range PV Vmax 0.62 m/sec - PV peak gradient 1.54 mmHg - AR end-diastolic Vmax 1.43 m/sec -
[2017-10-09 15:58] LABS: Urine Appearance Clear; Urine Blood 1+ (Negative); Urine Color Yellow; Urine Ketones Negative (Negative); Urine Protein Negative (Negative); Urine Specific Gravity 1.015 (1.010-1.030); Urine Urobilinogen Negative (Negative)
[2017-10-09] MEDS: NS 0.9% 1000 ML* 1,000 ML IV SCH ×2 (16:07→17:59)
--- NOTE | 2017-10-09 16:11 | HP ---
ADDENDUM NOW INCLUDED ON THIS REPORT CC: Dr. Rene* HISTORY AND PHYSICAL: DATE OF ADMISSION: 10/09/17 PRIMARY CARE PROVIDER: Dr. Rene. ATTENDING PHYSICIAN WHILE IN THE HOSPITAL: Dr. Jess Canseco * (report dictated by Darnell Morrison NP). CHIEF COMPLAINT: Syncope. HISTORY OF PRESENT ILLNESS: Mr. Choudhury is a 62-year-old male patient. He has a history of psoriasis and GERD. He is a former smoker. He comes into our emergency department today stating that he woke up this morning, he was feeling okay, he got up, he had breakfast, he was going upstairs to his bedroom. When he was going up the stairs, he said he was getting pretty short of breath. He felt his heart racing. He did not have any chest pain with this. He got up to his dresser. He put his arms on his dresser because he felt lightheaded, dizzy , the heart was racing, he felt like he may pass out. He tried to stabilize himself on the dresser. The next thing he knew he was on the floor and his was on the phone with 911. The did see him fall. She said he did hit his head on the dresser. She said that he may have been out for a minute. He landed face down, was snoring. When he came to, the patient heard his significant other's voice, Teri. He knew that 911 was being called. He had no chest pain. He says he still felt short of breath. He came into the ER today to be evaluated. He does give a history that a few weeks ago, he thinks 3 to 4 weeks ago, he had an episode of pain in his left shoulder that did go into his chest that was intermittent, but he says it never happened with exertion. He says it happened after lifting boxes. He thought he pulled a muscle. He sought care with the primary. They had done x-rays, which were negative, and he had a CAT scan of his chest just a few days ago and he was awaiting for the results of that. He says he has been having some clear runny nose only. He has not had any fevers. He has had a dry cough, but he has not had any shortness of breath at rest. His only shortness of breath is if he tries to do anything, going upstairs, going up the hill, and he says this is new for him. He says with minimal exertion he is getting pretty winded. He says he had no recent surgeries, but he recently was hospitalized a few months ago with pneumonia, in July of this year. He said since then he has been feeling well with the exception of the last few weeks. He does state that he has not had any recent trips or long travel and he states he has not had noticed any weight gain, no calf tenderness or swelling. He does admit to having some thigh pain, though yesterday that did go away, on the left thigh. He denies any orthopnea and he denies any nocturnal dyspnea, but he was concerned because of his syncope today, the worsening shortness of breath, the discomfort in the left shoulder that he had a few weeks ago. He came into the ER and was evaluated, and because of the syncope, we are asked to evaluate. It was noted that his troponin was 0.1. It was noted that he was tachycardic at rest and also now requiring O2. PAST MEDICAL HISTORY: Significant for: 1. GERD. 2. Psoriasis. PAST SURGICAL HISTORY: He has had an ORIF of the right arm. He has had a pilonidal cyst removal. MEDICATIONS: Home meds include: 1. Prilosec 40 mg daily. 2. Aleve 220 mg every 6 hours as needed. 3. Clobetasol 1 application topically daily as needed. ALLERGIES TO MEDICATIONS: Include IODINE, SULFA, and IV DYE, he gets hives. FAMILY HISTORY: His mother is alive at 93. To his knowledge, he says, she is healthy. Father had a history of a variant of ALS. SOCIAL HISTORY: He is a former smoker. He does not drink alcohol. Surrogate decision maker is his daughter and his significant other, Teri. REVIEW OF SYSTEMS: There is no documented fever. He denied having any significant weight change. He denies having any double vision. There is no ear discharge. He denies having any rhinorrhea. There is no sore throat. No thyroid enlargement. He did admit to having chest and shoulder discomfort about 3 weeks ago. He denied any orthopnea. No nocturnal dyspnea. He does admit to dyspnea on exertion. There was no abdominal pain. No nausea, no vomiting. No dysuria, no frequency. There was a loss of consciousness. There were no reports of seizure-like activity. Review of 14 systems was completed, all others are negative. PHYSICAL EXAMINATION GENERAL: At this time, Mr. Choudhury is a 62-year-old male patient. He is sitting on the ED stretcher. He does not appear to be in any acute distress. He appears to be well nourished, well developed. VITAL SIGNS: Blood pressure 114/82, pulse 108, respirations 14, O2 sat 98% on 3 L, temperature was 97.3. HEENT: Head: Atraumatic, normocephalic. Eyes: EOMs intact. Sclerae anicteric and not pale. Throat: Oral mucosa appears to be dry. No oropharyngeal erythema. NECK: Supple. LUNGS: Clear to auscultation bilaterally. There were no wheezes, rales, or rhonchi. HEART: Heart sounds S1 and S2. He is tachycardic, regular rhythm. No murmurs , rubs, or gallops. ABDOMEN: Soft. It is flat, nontender. Bowel sounds are present. EXTREMITIES: Pulses are 2+ throughout. He has 5/5 strength. He has no peripheral edema. He is moving all 4 extremities. NEUROLOGIC: The patient is awake. He is alert. He is oriented x3. Speech clear. Tongue midline. Patient Scheduler are equal. He had no gross focal deficits. SKIN: Intact. LABORATORY DATA/DIAGNOSTIC STUDIES: WBC of 10.3, RBC of 4.88, hemoglobin 14.9 , hematocrit of 43, platelet count of 163. PTT was 28.6. The sodium was 139, potassium 4.6, chloride 107, bicarb 25, BUN was 16, his creatinine was 1.28, which is right near his baseline of 1.1 to 1.2, glucose 104. Lactate 1.8. Calcium 9.1. Mag 1.8. Total bili 0.6, AST 17, ALT 18, alk phos 71. Troponin 0.10, which is the highest it has ever been. BNP at 28. TSH at 2.01. Toxicology negative for alcohol. He had multiple imaging here in the ED. He had a chest x-ray, which, when I reviewed, I did not appreciate any infiltrates or effusions. Radiology read it as no acute cardiopulmonary disease. He had a CT cervical spine, which showed mild degenerative changes. No acute osseous injury to the cervical spine. He did have a CT brain, which showed no acute intracranial pathology. He has had a V/Q scan done in July with bilateral ultrasounds of the right lower extremity, which were all negative. He had a CT chest just done on 10/06/17, which showed minimal airspace disease of the left lung apex. There has been interval improvement in aeration of the lingula. He had an EKG obtained today as well. I reviewed it. He appears to have a sinus tachycardia, rate of 101. No ST elevations or T wave inversions were noted. Compared to the previous EKG it appears to be similar. Old medical records were reviewed. ASSESSMENT AND PLAN: Mr. Choudhury is a 62-year-old male patient coming into the ED with complaints of syncopal episode. We were asked to evaluate for syncope. He will be admitted under observation status for: 1. Syncope: The etiology of this is unclear. I am concerned that he could have certainly had ACS 3 weeks ago, which may have contributed to a decreased EF , possibly increasing his risk for ventricular arrhythmias, which may have made him pass out, or also he could have a PE, which is concerning because he is hypoxic now, he is tachycardic. He is requiring O2. Unfortunately, I cannot do a CTA of the chest because he is allergic to IV dye, but I am going to get an echo at this point to help me delineate the etiology. I think an echo is important for the syncope as it could be related to PE or arrhythmia. Telemetry , cycle the troponins, orthostatic blood pressures, and we will continue to follow him closely. I am putting him empirically on heparin due to the elevated troponin and high suspicion that he could have a PE. His risk factors for PE is he recently was in the hospital a few months ago. It is concerning that he had the leg pain yesterday, he had more dyspnea on exertion today, his troponins bumped, that could explain most of these findings. So, again, I would like to treat empirically, get an ultrasound of his lower extremities. I am also checking a D-dimer and we will continue to follow closely. If the echo does show signs of PE, I have already ordered a V/Q scan for tomorrow, or if there are any signs of LV dysfunction or hypokinetic areas on the heart, I will get a formal cardiology evaluation. I have put him on aspirin already. If there is right heart strain, I will hydrate the patient, but before doing that I want to make sure his EF is intact. I do note that he is tachycardic and, again, if this is from possible ACS, I would treat him with a beta-devon. So , I need the echo to help me with treatment. I did discuss this with my attending and she was in agreement, Dr. Canseco. 2. Gastroesophageal reflux disease. Continue PPI therapy. 3. Psoriasis. Continue his clobetasol as needed. 4. Dyspnea on exertion. We are getting the echo, cycling his troponins. 5. Elevated troponin. Again, he is not having any chest pain now. His EKG does not show any signs of ischemia. PE could explain this. ACS could explain this. So, the echo will be important to help us delineate. We will cycle the troponins. If they continue to elevate, I will get cardiology input. I have already put him on aspirin and heparin. I am holding on the beta-devon at this point. Again, if the echo does show RV strain, I would want to hydrate him with fluids to increase preload, but if the echo does not show this and there is decreased EF, I would consider putting him on beta-blockers instead. So, I am awaiting on the echo to help me for further treatment. 6. DVT prophylaxis. We will place him on heparin drip. 7. Fluids, electrolytes, and nutrition. He can have a heart-healthy diet. 8. Code status. Full code. TIME SPENT: Time spent on the admission was 70 minutes, greater than half the time was spent [id number] with the patient obtaining my history and physical, the other half of the time was spent going over the plan of care with the patient and implementing plan of care. I did discuss the plan of care with my attending, Dr. Canseco, she is in agreement. ADDENDUM: FAMILY HISTORY: I was reevaluating the patient later this afternoon and the patient's brother was at the bedside. The patient's brother did make me aware that the patient's brother and a sister both have factor V Leiden. The patient stated that he had not mentioned this because he had been tested before and he was negative; however, this should be followed up in the outpatient setting with his primary and possibly Hematology/Oncology consult in the outpatient setting, but for the time being, again with recent echo findings noted that he did have what appeared to be RV strain, a dilated right atrium, and some moderate pulmonary hypertension, the concern is higher for PE, although I do not have a V/Q scan to confirm this, but I am highly suspicious. If the PE study is positive, then certainly he should have further workup for the factor V Leiden and follow up with PCP and possibly Hematology consult. For the time being, we will continue heparin drip. DARNELL MORRISON, SCARLET [id number]/[facility] #: [id number]/[facility] #: [id number] JOSE
--- NOTE | 2017-10-09 19:36 | RAD ---
HISTORY: Leg pain COMPARISONS: None relevant TECHNIQUE: Multiple transverse and longitudinal ultrasound images were obtained of the bilateral lower extremities from the level of the common femoral vein inferiorly through to the infrapopliteal veins using grayscale, color Doppler, and spectral Doppler imaging with and without compression and with augmentation. FINDINGS: VEINS: There is partially occlusive thrombus of the left femoral vein extending inferiorly into the popliteal vein. The remainder of the venous system of the bilateral lower extremities is compressible throughout its course, with normal flow on color Doppler imaging and normal response to augmentation on spectral Doppler imaging. SOFT TISSUES: Unremarkable. OTHER FINDINGS: None. IMPRESSION: 1. PARTIALLY OCCLUSIVE THROMBUS OF THE LEFT FEMORAL AND POPLITEAL VEINS. 2. NO RIGHT LOWER EXTREMITY DEEP VEIN THROMBOSIS.
[2017-10-09] MEDS ORDERED: Simethicone TAB* 80 MG TAB.CHEW PO ONE (21:08)
[2017-10-09] MEDS ORDERED: Morphine INJ* 2 MG/ML 1 ML CARPUJECT IV ONE ×2 (21:09→21:45)
--- NOTE | 2017-10-09 22:09 | PN ---
Hospitalist Progress Note Date of Service: 10/09/17 Patient admitted today with ANDRADE syncope. D-dimer 1050 greater than, noted echo with Rv strain and not u/s lle with DVT, not pt requiring o2 and trops elevated , my suspicion for PE is high also family made me aware today of factor five lieden, received phone call at 2129 of complaints of burping with chest pain, simethicone ordered, came to eval patient at 2144, pt states pain is improving, morphine 2 mg ordered, states pain almost gone, trop pending from 2099 draw, ekg ordered, given high suspicion of PE and chest pain now with trop elevated will tx to icu, echo with normal ef and No wall motion abnormalities, on hep gtt , will hold on treating for asc given high suspicion for pe, suspect trops elevated due to rv strain, also note that when off o2pt is hypoxic, vq scan ordered in am,will change to full admission discussed care with covering hospitalist,
[2017-10-10] MEDS ORDERED: Analgesic BALM* 114 GM TOPICAL PRN (02:07)
[2017-10-10] MEDS: Acetaminophen TAB* 325 MG PO PRN ×3 (02:29→17:34)
[2017-10-10] MEDS: NS 0.9% 1000 ML* 1,000 ML IV SCH (03:15)
[2017-10-10 05:26] LABS: ABS Basophils 0.1 10^3/ul (0-0.2); ABS Eosinophils 0.1 10^3/ul (0-0.6); ABS Lymphocytes 1.9 10^3/ul (1.0-4.8); ABS Monocytes 0.7 10^3/ul (0-0.8); ABS Neutrophils 6.5 10^3/ul (1.5-7.7); ABS Nucleated RBC 0 10^3/ul; Eosinophil % 1.2 % (0-6); Hematocrit 40 % (42-52); Hemoglobin 13.8 g/dl (14.0-18.0); Lymphocyte % 20.7 % (25-47); Mean Corpuscular HGB Conc 34 g/dl (31-36); Mean Corpuscular Hemoglobin 30 pg (27-31); Mean Corpuscular Volume 88 fL (80-94); Mean Platelet Volume 6.8 um3 (7.4-10.4); Nucleated Red Blood Cells % 0; Platelet Count 169 10^3/ul (150-450); Red Blood Count 4.53 10^6/ul (4.0-5.4); Red Cell Distribution Width 13 % (10.5-15); White Blood Count 9.4 10^3/ul (3.5-10.8)
[2017-10-10] MEDS ORDERED: NS 0.9% 1000 ML* 1,000 ML IV ONE (06:32)
[2017-10-10] MEDS: Heparin DRIP 25,000 UNITS(*) 25,000 UNITS/500 ML BAG IV SCH (07:39)
--- NOTE | 2017-10-10 08:22 | RAD ---
Indication: Shortness of breath, evaluate for pulmonary embolus. Ventilation and perfusion lung scan was performed. 9.7 mCi of xenon-133 was administered by aerosol. The patient would not cooperate and therefore the ventilation scan is limited. Perfusion lung scan was performed after intravenous injection of 6.5 mCi of technetium 99m macroaggregated albumin. The perfusion lung scan demonstrates large areas of hypoperfusion of the right upper lobe and right base. There are also multiple subsegmental perfusion defects in the left lung field involving the superior segment of the left lower lobe as well as the medial basal segment of the left lower lobe. Findings are consistent with pulmonary embolus. The recent chest x-ray demonstrates no evidence of infiltrate. IMPRESSION: This is a high probability scan for pulmonary embolus.
[2017-10-10] MEDS: Aspirin EC TAB* 81 MG TAB.EC PO SCH (08:47)
[2017-10-10] MEDS: Omeprazole CAP* 20 MG PO SCH (08:47)
--- NOTE | 2017-10-10 10:53 | HP ---
HISTORY AND PHYSICAL: ADDENDUM: FAMILY HISTORY: I was reevaluating the patient later this afternoon and the patient's brother was at the bedside. The patient's brother did make me aware that the patient's brother and a sister both have factor V Leiden. The patient stated that he had not mentioned this because he had been tested before and he was negative; however, this should be followed up in the outpatient setting with his primary and possibly Hematology/Oncology consult in the outpatient setting, but for the time being, again with recent echo findings noted that he did have what appeared to be RV strain, a dilated right atrium, and some moderate pulmonary hypertension, the concern is higher for PE, although I do not have a V/Q scan to confirm this, but I am highly suspicious. If the PE study is positive, then certainly he should have further workup for the factor V Leiden and follow up with PCP and possibly Hematology consult. For the time being, we will continue heparin drip. BENJAMIN TORRES, SCAR[place] [id number]/[facility] #: [id number] MTDJosie
[2017-10-10] MEDS ORDERED: NS 0.9% 1000 ML* 1,000 ML IV SCH (11:00)
--- NOTE | 2017-10-10 11:58 | PN ---
Progress Note - Progress Note Date of Service: 10/10/17 Note: CRITICAL CARE MEDICINE Date: 10/10/17 Time: 1025 SUBJECTIVE: Patient seen and examined. at bedside. PHYSICAL EXAM: Vital Signs: Reviewed. Hr 90s. BP stable. 4L O2. RR ~20 Neurologic: awake, nonfocal, holds capacity HEENT: pupils equal. Sclera anicteric. Trachea midline. mild edema left cranium post fall Cardiovascular: S1 S2, no m appreciated Respiratory: clear bl Abdomen: Soft, obese, nt. No r/g/r. Extremities: Warm. Access: piv LABS: Reviewed. +trop, neg bnp IMAGING: Reviewed. V/Q high prob. echo reviewed. MEDICATIONS: Reviewed. ASSESSMENT: 62 Submassive PE with syncope, RV strain, troponin leak sec to demand DVT contusion post syncope with mild muscle strain PLAN: he looks fairly well, but also looks like submassive pe Hr tolerable. Perfusing fine. BP stable. Vol status adequate. 4L O2 support just not to exacerbate space. Remain on heparin gtt today. hold on further until ensured no tpa needs next 24h. then can start xeralto. We discussed dx and px at length. We discussed mopett trial and potential for 1/ 2 dose tpa, but also reasons to reserve for now. He and his agree to reserve and expressed understanding of risks and benefits. We also discussed reasons if worsening of why we would go that route. Supportive and preventative care as ordered. Disposition: ICU today and potential floor tomorow Code Status: Full Critical Care Time: 35min Wale Darby DO
[2017-10-10] MEDS ORDERED: CALCIPOTRIENE 0.005% TOPICAL PRN (12:05)
[2017-10-11] MEDS: Acetaminophen TAB* 325 MG PO PRN ×3 (00:09→16:02)
[2017-10-11] MEDS ORDERED: Al Hydrox/Mg Hydrox/Simet LIQ* 30 ML UDC PO PRN (01:13)
[2017-10-11] MEDS: Heparin DRIP 25,000 UNITS(*) 25,000 UNITS/500 ML BAG IV SCH (04:39)
[2017-10-11 07:24] LABS: ABS Basophils 0.1 10^3/ul (0-0.2); ABS Eosinophils 0.2 10^3/ul (0-0.6); ABS Lymphocytes 1.7 10^3/ul (1.0-4.8); ABS Monocytes 0.6 10^3/ul (0-0.8); ABS Neutrophils 4.9 10^3/ul (1.5-7.7); ABS Nucleated RBC 0 10^3/ul; Eosinophil % 3.3 % (0-6); Hematocrit 38 % (42-52); Hemoglobin 13.4 g/dl (14.0-18.0); Lymphocyte % 22.1 % (25-47); Mean Corpuscular HGB Conc 35 g/dl (31-36); Mean Corpuscular Hemoglobin 31 pg (27-31); Mean Corpuscular Volume 88 fL (80-94); Mean Platelet Volume 7.1 um3 (7.4-10.4); Nucleated Red Blood Cells % 0.2; Platelet Count 166 10^3/ul (150-450); Red Blood Count 4.37 10^6/ul (4.0-5.4); Red Cell Distribution Width 13 % (10.5-15); White Blood Count 7.5 10^3/ul (3.5-10.8)
[2017-10-11 07:33] LABS: EGFR Non-African American 67.1 (>60)
[2017-10-11] MEDS: Omeprazole CAP* 20 MG PO SCH (08:13)
[2017-10-11] MEDS: Aspirin EC TAB* 81 MG TAB.EC PO SCH (08:13)
[2017-10-11] MEDS: NS 0.9% 1000 ML* 1,000 ML IV SCH (08:19)
--- NOTE | 2017-10-11 09:33 | PN ---
Progress Note - Progress Note Date of Service: 10/11/17 Note: CRITICAL CARE MEDICINE Date: 10/11/17 Time: 900 SUBJECTIVE: Patient seen and examined. PHYSICAL EXAM: Vital Signs: Reviewed. Hr 80s. BP stable. O2 off. RR teens Neurologic: awake, nonfocal, holds capacity HEENT: pupils equal. Sclera anicteric. Trachea midline. Cardiovascular: S1 S2, no m appreciated Respiratory: clear bl, good phases Abdomen: Soft, obese, nt. No r/g/r. Extremities: Warm. Access: piv LABS: Reviewed. IMAGING: Reviewed. MEDICATIONS: Reviewed. ASSESSMENT: 62 Submassive PE with syncope, RV strain, troponin leak sec to demand - improving LLE DVT PLAN: doing quite well. can be off O2. vol status well and off ivf. oob. po. ambulate start xeralto and dc heparin gtt. no tpa needs forseen transfer to floor but leave on tele another day or so Will need f/u with pcp for continued anticoag, +/- oupt cards, with repeat echo 6-8 weeks, +/- LE duplex for dvt f/u Supportive and preventative care as ordered. Disposition: floor tele Code Status: Full Critical Care Time: 25min Wale Darby DO
[2017-10-11] MEDS: Rivaroxaban TAB(*) 15 MG PO SCH ×2 (09:48→20:39)
[2017-10-12 05:21] LABS: ABS Basophils 0.1 10^3/ul (0-0.2); ABS Eosinophils 0.3 10^3/ul (0-0.6); ABS Lymphocytes 1.3 10^3/ul (1.0-4.8); ABS Monocytes 0.6 10^3/ul (0-0.8); ABS Neutrophils 4.1 10^3/ul (1.5-7.7); ABS Nucleated RBC 0 10^3/ul; Hematocrit 39 % (42-52); Hemoglobin 13.6 g/dl (14.0-18.0); Lymphocyte % 20.8 % (25-47); Mean Corpuscular HGB Conc 35 g/dl (31-36); Mean Corpuscular Hemoglobin 30 pg (27-31); Mean Corpuscular Volume 87 fL (80-94); Mean Platelet Volume 6.8 um3 (7.4-10.4); Nucleated Red Blood Cells % 0.3; Platelet Count 173 10^3/ul (150-450); Red Blood Count 4.51 10^6/ul (4.0-5.4); Red Cell Distribution Width 13 % (10.5-15); White Blood Count 6.4 10^3/ul (3.5-10.8)
[2017-10-12 05:39] LABS: EGFR Non-African American 63.8 (>60)
[2017-10-12] MEDS: Omeprazole CAP* 20 MG PO SCH (07:36)
[2017-10-12] MEDS: Aspirin EC TAB* 81 MG TAB.EC PO SCH (09:45)
[2017-10-12] MEDS: Rivaroxaban TAB(*) 15 MG PO SCH ×2 (09:45→20:50)
--- NOTE | 2017-10-12 17:09 | PN ---
Subjective Date of Service: 10/12/17 Interval History: HOSPITALIST PROGRESS NOTE Patient seen and examined at bedside. He feels better today. Denies chest pain, dyspnea, palpitations but felt a little lightheaded walking to the bathroom. Family History: Unchanged from Admission Social History: Unchanged from Admission Past Medical History: Unchanged from Admission Objective Active Medications: Acetaminophen (Tylenol Tab*) 650 mg PO Q4H PRN PRN Reason: FEVER/PAIN Last Admin: 10/11/17 16:02 Dose: 650 mg Al Hydrox/Mg Hydrox/Simethicone (Maalox Plus*) 30 ml PO Q4H PRN PRN Reason: INDIGESTION Last Admin: 10/11/17 02:57 Dose: 30 ml Aspirin (Aspirin Ec Tab*) 81 mg PO DAILY [facility] Last Admin: 10/12/17 09:45 Dose: 81 mg Clobetasol Propionate (Clobetasol 0.05% Oint*) 1 applic TOPICAL DAILY PRN PRN Reason: ITCHING Sodium Chloride (Ns 0.9% 1000 Ml*) 1,000 mls @ 0 mls/hr IV KVO [facility] PRN Reason: KVO Last Admin: 10/10/17 17:34 Dose: 10 mls/hr Multi-Ingredient Liniment/Rub (Thomas Larkin*) 1 applic TOPICAL TID PRN PRN Reason: PAIN Last Admin: 10/10/17 02:36 Dose: 1 applic Pto: Calcipotriene (Ointment 0.005%) 1 dose TOPICAL BID PRN PRN Reason: PSORIASIS FLARE Last Admin: 10/12/17 10:15 Dose: 1 dose Omeprazole (Prilosec Cap*) 40 mg PO DAILY@0730 [facility] Last Admin: 10/12/17 07:36 Dose: 40 mg Ondansetron HCl (Zofran Inj*) 4 mg IV Q6H PRN PRN Reason: NAUSEA Rivaroxaban (Xarelto(*)) 15 mg PO BID [facility] Last Admin: 10/12/17 09:45 Dose: 15 mg Vital Signs - 8 hr 10/12/17 10/12/17 10/12/17 11:22 13:54 15:19 Temperature 97.7 F 97.8 F 97.8 F Pulse Rate 110 97 95 Respiratory 16 16 16 Rate Blood Pressure 114/69 114/61 109/63 (mmHg) O2 Sat by Pulse 98 96 96 Oximetry Oxygen Devices in Use Now: None Appearance: Pleasant gentleman lying in bed in NAD. Eyes: No Scleral Icterus Ears/Nose/Mouth/Throat: Mucous Membranes Moist Neck: Trachea Midline Respiratory: Symmetrical Chest Expansion and Respiratory Effort, Clear to Auscultation Cardiovascular: RRR - Normal S1 and S2 Neurological: Alert and Oriented x 3 Result Diagrams: 10/12/17 05:11 10/12/17 05:11 Assess/Plan/Problems-Billing Assessment: Mr. Choudhury is a 62yo M with PMH of GERD, psoriasis, admission in July for pneumonia, who presented to ED with c/o syncope, found to have submassive PE. - Patient Problems (1) Pulmonary embolism Comment: - Patient presented with syncope. - V/Q scan showed high probability of PE and LE doppler was positive for LLE DVT. - Echo showed signs of RV strain compatible with acute cor pulmonale. - Pecan Huller discussed risks and benefits of tPA and decision was made to anticoagulate with Xarelto. - Continue to monitor on Telemetry. (2) DVT prophylaxis Comment: - Xarelto. (3) Full code status Status and Disposition: Inpatient for management of submassive PE. Anticipate d/c in the next 1-2 days.
[2017-10-13 07:02] LABS: ABS Basophils 0 10^3/ul (0-0.2); ABS Eosinophils 0.3 10^3/ul (0-0.6); ABS Lymphocytes 1.3 10^3/ul (1.0-4.8); ABS Monocytes 0.7 10^3/ul (0-0.8); ABS Neutrophils 4.5 10^3/ul (1.5-7.7); ABS Nucleated RBC 0 10^3/ul; Eosinophil % 4.3 % (0-6); Hematocrit 40 % (42-52); Hemoglobin 14.1 g/dl (14.0-18.0); Lymphocyte % 19.5 % (25-47); Mean Corpuscular HGB Conc 36 g/dl (31-36); Mean Corpuscular Hemoglobin 31 pg (27-31); Mean Corpuscular Volume 87 fL (80-94); Nucleated Red Blood Cells % 0.1; Platelet Count 196 10^3/ul (150-450); Red Blood Count 4.58 10^6/ul (4.0-5.4); Red Cell Distribution Width 14 % (10.5-15); White Blood Count 6.9 10^3/ul (3.5-10.8)
[2017-10-13 07:21] LABS: EGFR Non-African American 60.8 (>60)
[2017-10-13] MEDS: Aspirin EC TAB* 81 MG TAB.EC PO SCH (07:35)
[2017-10-13] MEDS: Rivaroxaban TAB(*) 15 MG PO SCH (07:35)
[2017-10-13] MEDS: Omeprazole CAP* 20 MG PO SCH (07:35)
[2017-10-13 08:52] VITALS: BP 112/69
--- NOTE | 2017-10-14 11:10 | DS ---
CC: Dr. Rene; Dr. Luis Darby DISCHARGE SUMMARY: DATE OF ADMISSION: 10/09/17 DATE OF DISCHARGE: 10/13/17 PRIMARY CARE PROVIDER: Dr. Rene. DISCHARGE DIAGNOSES: 1. Syncope. 2. Massive pulmonary embolism with acute cor pulmonale. 3. Left lower extremity deep venous thrombosis. SECONDARY DIAGNOSES: 1. Gastroesophageal reflux disease. 2. Psoriasis. MEDICATION LIST: 1. Clobetasol topical daily as needed. 2. Omeprazole 40 mg p.o. daily. New medications: 1. Rivaroxaban 15 mg p.o. b.i.d. for 18 more days and then 20 mg p.o. daily. 2. Benzonatate 100 mg p.o. t.i.d. p.r.n. cough. 3. Acetaminophen 650 mg p.o. q.4 hours p.r.n. pain or fever. HOSPITAL COURSE: Mr. Choudhury is a 62-year-old male with a past medical history as stated above that presented to the emergency room after a syncopal episode. As per HPI, the patient was feeling well and he tried to go upstairs to his bedroom and he felt short of breath, palpitations, lightheaded, an d he passed out. He had no complaints of chest pain. He was admitted in early July for pneumonia . For more details about his presentation, I refer you to his history and physical. The patient's initial troponin was 0.1 and he peaked at 0.83. His D-dimer was greater than 1050, hig hly suspicious for PE. He was admitted to the intensive care unit on the impression of possible PE. CT of the brain showed no acute intracranial pathology. CT of the cervical spine showed mild degene rative changes. No acute osseous injury to the cervical spine. Transthoracic echocardiogram showed e jection fraction greater than 65% with right ventricle [id number] dilated and right ventric ular global systolic function moderately reduced with signs of moderate pulmonary hypertension (49 mm ). A lower extremity Doppler showed partially occlusive thrombus of the left femoral and popliteal vein. No right lower extremity DVT. A V/Q scan showed high- probability scan for pulmonary embolus. The patient was anticoagulated with a heparin drip and he was seen in consultation by Critical Care ( Dr. Darby). He discussed with the patient and his , the MOPETT trial and potential for half-do se tPA and after reviewing the risks and benefits, decision was to continue just anticoagulation. The patient did well with improvement of his symptoms. He was able to ambulate around the telemetry unit with no significant arrhythmia. The plan is for him to be discharged home today avoiding any ex cessive physical exertion. He will continue on anticoagulation with Xarelto. He will have a repeat echocardiogram in 6 to 8 weeks and also repeat lower extremity duplex for DVT followup. The internis t felt that depending on the echo report, he will need outpatient followup with Cardiology. The patient was advised about symptoms that will prompt his return to the emergency room. PHYSICAL EXAMINATION: Vital Signs: Temperature 98.6, heart rate is 81, respiratory rate 16, oxygen saturation 95% on room air, blood pressure is 112/69. General: The patient is a pleasant gentleman, sitting up in bed, in no acute distress. CVS: Normal S1, S2. Regular rate and rhythm. Chest: Jessika ath sounds bilaterally with no added sounds. Extremities: No edema. Neuro: He is alert and orient ed x3, able to move all 4 extremities. DIET: Regular diet. ACTIVITIES: As tolerated. The patient was advised to avoid excessive physical exertion and he recei tiffani a letter so he can be off work for at least 2 weeks and this will need to be reevaluated as outpa tient. DISPOSITION: To home. STATUS WHILE IN THE HOSPITAL: Inpatient. Please keep in mind, this is a summarized version of this patient's hospital stay. If you need more i nformation, please feel free to call me at [phone] or please obtain the full medical records. TIME SPENT: Approximately 45 minutes was spent to complete this discharge. [id number]/[facility] #: [id number]
== END 2017-10-13 11:45 | disposition home or self-care (01) | DRG 175 ==
LOC: ED 08:51 → MEDTELE 11:52 → OBSVTOIN 22:00 → ICU 23:12 → MEDTELE 10-11 09:28
PROVIDERS: ADMIT Internal Medicine; ATTEND Internal Medicine
PROC: B24BZZZ Ultrasonography of Heart with Aorta (ICD-10-PCS; principal; 2017-10-09)
DX: I26.09 Other pulmonary embolism with acute cor pulmonale (principal); I82.432 Acute embolism and thrombosis of left popliteal vein; I24.8 Other forms of acute ischemic heart disease; I82.412 Acute embolism and thrombosis of left femoral vein; L40.9 Psoriasis, unspecified; K21.9 Gastro-esophageal reflux disease without esophagitis; R00.0 Tachycardia, unspecified; W22.8XXA Striking against or struck by other objects, initial encounter; T14.8XXA Other injury of unspecified body region, initial encounter; M50.30 Other cervical disc degeneration, unspecified cervical region; I27.20 Pulmonary hypertension, unspecified; R09.02 Hypoxemia; S00.93XA Contusion of unspecified part of head, initial encounter; Y92.092 Bedroom in other non-institutional residence as the place of occurrence of the external cause; Z88.2 Allergy status to sulfonamides; Z91.041 Radiographic dye allergy status; Z87.01 Personal history of pneumonia (recurrent); Z88.8 Allergy status to other drugs, medicaments and biological substances; Z82.0 Family history of epilepsy and other diseases of the nervous system; Z83.2 Family history of diseases of the blood and blood-forming organs and certain disorders involving the immune mechanism; Z99.81 Dependence on supplemental oxygen; Z86.14 Personal history of Methicillin resistant Staphylococcus aureus infection; Z87.891 Personal history of nicotine dependence
CPT/HCPCS: 36415; 70450; 71045; 72125; 78582; 80048; 80053; 80061; 80307; 80320; 81003; 81015; 82565; 83036; 83605; 83735; 83880; 84443; 84484; 84520; 85025; 85379; 85730; 87086; 93005; 93970; 99284; A9270-GY; A9540; A9558; G0378; G0480; J1644; J2270; J3475

== ENCOUNTER 2017-12-24 10:19 | Emergency (ER) | payer OTHER ==
[2017-12-24] MEDS ORDERED: diPHENhydraMINE IV* 50 MG/ML 1 ml VIAL (BENADRYL) IV ONE (12:20)
[2017-12-24] MEDS ORDERED: NS 0.9% 1000 ML* 1,000 ML IV ONE ×2 (12:20→13:38)
[2017-12-24 13:01] LABS: ABS Basophils 0 10^3/ul (0-0.2); ABS Eosinophils 0.1 10^3/ul (0-0.6); ABS Lymphocytes 1.1 10^3/ul (1.0-4.8); ABS Monocytes 0.4 10^3/ul (0-0.8); ABS Neutrophils 4.5 10^3/ul (1.5-7.7); ABS Nucleated RBC 0 10^3/ul; Eosinophil % 1.1 % (0-6); Hematocrit 45 % (42-52); Hemoglobin 15.7 g/dl (14.0-18.0); Lymphocyte % 17.6 % (25-47); Mean Corpuscular HGB Conc 35 g/dl (31-36); Mean Corpuscular Hemoglobin 31 pg (27-31); Mean Corpuscular Volume 88 fL (80-94); Nucleated Red Blood Cells % 0; Platelet Count 207 10^3/ul (150-450); Red Blood Count 5.08 10^6/ul (4.00-5.40); Red Cell Distribution Width 14 % (10.5-15)
[2017-12-24] MEDS ORDERED: Meclizine TAB* 12.5 MG PO ONE (13:02)
[2017-12-24 13:08] LABS: INR 1.06 (0.77-1.02)
[2017-12-24 13:18] LABS: EGFR Non-African American 59.1 (>60)
[2017-12-24 14:10] VITALS: BP 111/76
--- NOTE | 2017-12-24 18:26 | ED ---
Mariaelena Boudreaux Jade, scribed for Didier Gaines MD on 12/24/17 at 1326 . Dizziness - HPI Summary HPI Summary: Pt is a 62 y/o male who presents to the ED c/o dizziness. He states he had rotational dizziness for about 2 minutes this morning when he got up. Pt also complains of nausea and pain down his left lower leg. He states now his dizziness has resolved, and he is able to ambulate without reproducing dizziness. Pt denies CP, SOB, vomiting, ear pain, headache, or sinus congestion. PMHx DVT of left leg and PE 2 months ago. Pt is still on blood thinners, and has not missed a dose. - History Of Current Complaint Chief Complaint: EDDizziness Stated Complaint: DIZZINESS/LEG PAIN Time Seen by Provider: 12/24/17 12:53 Hx Obtained From: Patient Onset/Duration: Resolved Timing: Hours - This morning for 2 minutes Character: Room Spinning, Dizzy Associated Signs And Symptoms: Positive: Nausea. Negative: Vomiting - Allergies/Home Medications Allergies/Adverse Reactions: Allergies Allergy/AdvReac Type Severity Reaction Status Date / Time iodine Allergy Mild Hives Verified 12/24/17 10:26 sulfamethoxazole Allergy Unknown Verified 12/24/17 10:26 Reaction Details IV CONTRAST Allergy Mild Hives Uncoded 12/24/17 10:26 PMH/Surg Hx/FS Hx/Imm Hx Endocrine/Hematology History: Denies: Hx Anticoagulant Therapy, Hx Diabetes, Hx Thyroid Disease Cardiovascular History: Denies: Hx Atrial Fibrillation, Hx Congenital Heart Disease, Hx Congestive Heart Failure, Hx Deep Vein Thrombosis, Hx Hypercholesterolemia, Hx Hypertension , Hx Pacemaker/ICD Respiratory History: Denies: Hx Asthma, Hx Chronic Obstructive Pulmonary Disease (COPD) GI History: Reports: Hx Gastroesophageal Reflux Disease History: Denies: Hx Renal Disease Sensory History: Reports: Hx Contacts or Glasses Denies: Hx Hearing Aid Opthamlomology History: Reports: Hx Contacts or Glasses Neurological History: Denies: Hx Dementia, Hx Seizures Psychiatric History: Denies: Hx Substance Abuse - Surgical History Surgery Procedure, Year, and Place: right arm tendon repair and pins/plate. pionidal csyt Infectious Disease History: Yes Infectious Disease History: Reports: Hx of Known/Suspected MRSA - staph infection in [facility] 2 years ago Denies: Hx Clostridium Difficile, Hx Hepatitis, Hx Human Immunodeficiency Virus (HIV), Hx Shingles, Hx Tuberculosis, Hx Known/Suspected VRSA, History Other Infectious Disease, Traveled Outside the [place] in Last 30 Days - Family History Known Family History: Negative: Renal Disease, Respiratory Disease, Seizure Disorder - Social History Alcohol Use: None Alcohol Amount: Quit approximately 3 years ago Substance Use Type: Reports: None Smoking Status (MU): Former Smoker Have You Smoked in the Last Year: No Review of Systems ENT: Negative - Sinus congestion Negative: Ear Ache Negative: Chest Pain Negative: Shortness Of Breath Positive: Nausea. Negative: Vomiting Positive: Other - Lower left leg pain Neurological: Other - Dizziness Negative: Headache All Other Systems Reviewed And Are Negative: Yes Physical Exam - Summary Physical Exam Summary: Appearance: Well appearing, no pain distress Skin: warm, dry, reflects adequate perfusion Head/face: normal Eyes: EOMI, SEGUN ENT: wax in ear canals Neck: supple, non-tender Respiratory: CTA, breath sounds present Cardiovascular: pulses symmetrical, bradycardic, irregular rhythm. Negative Homans sign. No palpable cord. Abdomen: non-tender, soft Bowel Sounds: present Musculoskeletal: normal, strength/ROM intact Neuro: normal, sensory motor intact, A&Ox3. Cranial nerves intact. No focal deficit or weakness. Negative Bassam-Hallpike. Triage Information Reviewed: Yes Vital Signs On Initial Exam: Initial Vitals Temp Pulse Resp BP Pulse Ox 97.6 F 75 18 125/75 100 12/24/17 10:21 12/24/17 10:21 12/24/17 10:21 12/24/17 10:21 12/24/17 10:21 Vital Signs Reviewed: Yes Procedures - Procedure Summary Procedure Summary: Irrigated left ear canal of cerumen. Warm water revealed a normal TM behind cerumen. Diagnostics - Vital Signs Vital Signs Temp Pulse Resp BP Pulse Ox 12/24/17 12:27 97 F 68 20 111/65 98 12/24/17 10:21 97.6 F 75 18 125/75 100 - Laboratory Lab Results: Lab Results 12/24/17 12/24/17 Range/Units 12:55 12:55 WBC 6.0 (3.5-10.8) 10^3/ul RBC 5.08 (4.00-5.40) 10^6/ul Hgb 15.7 (14.0-18.0) g/dl Hct 45 (42-52) % MCV 88 (80-94) fL MCH 31 (27-31) pg MCHC 35 (31-36) g/dl RDW 14 (10.5-15) % Plt Count 207 (150-450) 10^3/ul MPV 7.0 L (7.4-10.4) um3 Neut % (Auto) 74.2 (38-83) % Lymph % (Auto) 17.6 L (25-47) % [place] % (Auto) 6.3 (0-7) % Eos % (Auto) 1.1 (0-6) % Baso % (Auto) 0.8 (0-2) % Absolute Neuts (auto) 4.5 (1.5-7.7) 10^3/ul Absolute Lymphs (auto) 1.1 (1.0-4.8) 10^3/ul Absolute Monos (auto) 0.4 (0-0.8) 10^3/ul Absolute Eos (auto) 0.1 (0-0.6) 10^3/ul Absolute Basos (auto) 0 (0-0.2) 10^3/ul Absolute Nucleated RBC 0 10^3/ul Nucleated RBC % 0 INR (Anticoag Therapy) 1.06 H (0.77-1.02) D-Dimer, Quantitative < 200 (Less Than 230) ng/mL Result Diagrams: 12/24/17 12:55 12/24/17 12:55 Lab Statement: Any lab studies that have been ordered have been reviewed, and results considered in the medical decision making process. - EKG 12:27 Cardiac Rate: Bradycardia - 52 bpm EKG Rhythm: Sinus Rhythm ST Segment: Normal EKG Interpretation: Normal axis, normal interval Re-Evaluation - Re-Evaluation First Eval Change: Improved Dizzy Course/Dx - Course Course Of Treatment: Patient with rotational dizziness earlier in the day but negative Hallpike test. His laboratories indicate some hemoconcentration and possible dehydration. Hydrated here. His urine was irrigated of cerumen impaction. He was discharged home in good condition with as needed meclizine. - Diagnoses Differential Diagnosis/HQI/PQRI: Other - Peripheral vertigo, central vertigo, dehydration, metabolic abnormality, labyrinthitis Provider Diagnoses: Vertigo, Cerumen impaction, Dehydration Discharge - Sign-Out/Discharge Documenting (check all that apply): Discharge/Admit/Transfer - Discharge - Discharge Plan Condition: Good Disposition: HOME Prescriptions: Meclizine TAB* [Antivert 12.5 TAB*] 25 mg PO TID PRN #30 tab PRN Reason: Dizziness Patient Education Materials: Dehydration (ED), Vertigo (ED) Referrals: Maurice Rene MD [Primary Care Provider] - Additional Instructions: Stay well hydrated. Avoid the sun. Meclizine as needed for dizziness. Do not drive until well. Return with headaches, vomiting, increased symptoms, worse or other concerns. Avoid ibuprofen and Aleve or aspirin. - Billing Disposition and Condition Condition: STABLE Disposition: Home The documentation as recorded by the Mariaelena richardson Jade accurately reflects the service I personally performed and the decisions made by , Didier Gaines MD.
== END 2017-12-24 14:10 | disposition home or self-care (01) ==
LOC: ED 10:19
DX: R42 Dizziness and giddiness (principal); E86.0 Dehydration; H61.22 Impacted cerumen, left ear; R00.1 Bradycardia, unspecified; Z86.711 Personal history of pulmonary embolism; Z86.718 Personal history of other venous thrombosis and embolism; Z79.01 Long term (current) use of anticoagulants; Z87.891 Personal history of nicotine dependence; Z88.0 Allergy status to penicillin; Z88.2 Allergy status to sulfonamides
CPT/HCPCS: 36415; 80048; 85025; 85379; 85610; 93005; 99282; A9270-GY

== ENCOUNTER 2019-01-25 17:41 | Emergency (ER) | payer OTHER ==
[2019-01-25 18:36] LABS: ABS Eosinophils 0.1 10^3/ul (0-0.6); ABS Lymphocytes 1.3 10^3/ul (1.0-4.8); ABS Monocytes 0.6 10^3/ul (0-0.8); ABS Neutrophils 3.1 10^3/ul (1.5-7.7); Eosinophil % 2.8 %; Hematocrit 42 % (42-52); Hemoglobin 14.5 g/dL (14.0-18.0); Lymphocyte % 25.5 %; Mean Corpuscular HGB Conc 35 g/dL (31-36); Mean Corpuscular Hemoglobin 32 pg (27-31); Mean Corpuscular Volume 91 fL (80-94); Mean Platelet Volume 7.1 fL (7.4-10.4); Nucleated Red Blood Cells % 0.1; Platelet Count 191 10^3/uL (150-450); Red Cell Distribution Width 13 % (10-15); White Blood Count 5.2 10^3/uL (3.5-10.8)
[2019-01-25 18:49] LABS: INR 1.01 (0.82-1.09)
[2019-01-25 19:01] LABS: Albumin 4.1 g/dL (3.2-5.2); Albumin/Globulin Ratio 1.7 (1-3); BUN/Creatinine Ratio 20.3 (8-20); Calcium 9.7 mg/dL (8.6-10.3); EGFR African American 68.7 (>60); EGFR Non-African American 56.8 (>60); Globulin 2.4 g/dL (2-4); Total Bilirubin 0.7 mg/dL (0.2-1.0); Total Protein 6.5 g/dL (6.4-8.9)
--- NOTE | 2019-01-25 20:45 | ED ---
Abdominal Pain/Male - HPI Summary HPI Summary: This patient is a 63 year old M presenting to [facility] with a chief complaint of left-sided, intermittent flank pain since this morning. Pt notes he is feeling better. The patient rates the pain 2/10 in severity. Symptoms aggravated by nothing. Symptoms alleviated by nothing. Patient denies N/V and dyspnea, but reports CP. He states he occasionally takes Advil, but stopped taking his blood thinner medication 3 months ago. - History of Current Complaint Chief Complaint: EDChestWallPain Stated Complaint: LEFT SIDED PAIN WHEN BREATHING/TURNING PER PT Time Seen by Provider: 01/25/19 19:52 Hx Obtained From: Patient Onset/Duration: Sudden Onset, Lasting Hours - since this morning, Resolved - pt notes he is feeling better now Timing: Lasting Hours - since this morning Severity Initially: Mild Severity Currently: None Pain Intensity: 2 Pain Scale Used: 0-10 Numeric Radiates: No Aggravating Factor(s): Nothing Alleviating Factor(s): Nothing Associated Signs And Symptoms: Positive: Chest Pain, Other - positive - left flank pain, negative - dyspnea. Negative: Nausea, Vomiting - Allergies/Home Medications Allergies/Adverse Reactions: Allergies Allergy/AdvReac Type Severity Reaction Status Date / Time iodine Allergy Mild Hives Verified 12/24/17 10:26 sulfamethoxazole Allergy Unknown Verified 12/24/17 10:26 Reaction Details IV CONTRAST Allergy Mild Hives Uncoded 12/24/17 10:26 Home Medications: Home Medications Pantoprazole TAB * [Protonix TAB*] 40 mg PO DAILY 01/25/19 [History Confirmed ] PMH/Surg Hx/FS Hx/Imm Hx Previously Healthy: No Endocrine/Hematology History: Denies: Hx Anticoagulant Therapy, Hx Diabetes, Hx Thyroid Disease Cardiovascular History: Denies: Hx Atrial Fibrillation, Hx Congenital Heart Disease, Hx Congestive Heart Failure, Hx Deep Vein Thrombosis, Hx Hypercholesterolemia, Hx Hypertension , Hx Pacemaker/ICD Respiratory History: Denies: Hx Asthma, Hx Chronic Obstructive Pulmonary Disease (COPD) GI History: Reports: Hx Gastroesophageal Reflux Disease History: Denies: Hx Renal Disease Sensory History: Reports: Hx Contacts or Glasses Denies: Hx Hearing Aid Opthamlomology History: Reports: Hx Contacts or Glasses Neurological History: Denies: Hx Dementia, Hx Seizures Psychiatric History: Denies: Hx Substance Abuse - Surgical History Surgical History: Yes Surgery Procedure, Year, and Place: right arm tendon repair and pins/plate. pionidaalfredo csyt Infectious Disease History: No Infectious Disease History: Reports: Hx of Known/Suspected MRSA - staph infection in [facility] 2 years ago Denies: Hx Clostridium Difficile, Hx Hepatitis, Hx Human Immunodeficiency Virus (HIV), Hx Shingles, Hx Tuberculosis, Hx Known/Suspected VRSA, History Other Infectious Disease, Traveled Outside the [place] in Last 30 Days - Family History Known Family History: Positive: None Negative: Renal Disease, Respiratory Disease, Seizure Disorder - Social History Alcohol Use: None Alcohol Amount: Quit approximately 3 years ago Hx Substance Use: No Substance Use Type: Reports: None Hx Tobacco Use: Yes Smoking Status (MU): Former Smoker Have You Smoked in the Last Year: No Review of Systems Positive: Chest Pain Respiratory: Other - negative - dyspnea Negative: Vomiting, Nausea Musculoskeletal: Other - positive - left sided flank pain All Other Systems Reviewed And Are Negative: Yes Physical Exam - Summary Physical Exam Summary: VITAL SIGNS: Reviewed. GENERAL: Patient is a well-developed and nourished MALE who is lying comfortable in the stretcher. Patient is not in any acute respiratory distress. HEAD AND FACE: No signs of trauma. No ecchymosis, hematomas or skull depressions. No sinus tenderness. EYES: PERRLA, EOMI x 2, No injected conjunctiva, no nystagmus. EARS: Hearing grossly intact. Ear canals and tympanic membranes are within normal limits. MOUTH: Oropharynx within normal limits. NECK: Supple, trachea is midline, no adenopathy, no JVD, no carotid bruit, no c- spine tenderness, neck with full ROM CHEST: Symmetric, no tenderness at palpation LUNGS: Clear to auscultation bilaterally. No wheezing or crackles. CVS: Regular rate and rhythm, S1 and S2 present, no murmurs or gallops appreciated. ABDOMEN: Soft, non-tender. No signs of distention. No rebound no guarding, and no masses palpated. Bowel sounds are normal. EXTREMITIES: FROM in all major joints, no edema, no cyanosis or clubbing. NEURO: Alert and oriented x 3. No acute neurological deficits. Speech is normal and follows commands. SKIN: Dry and warm Triage Information Reviewed: Yes Vital Signs On Initial Exam: Initial Vitals Temp Pulse Resp BP Pulse Ox 98.0 F 78 18 118/72 98 01/25/19 17:43 01/25/19 17:43 01/25/19 17:43 01/25/19 17:43 01/25/19 17:43 Vital Signs Reviewed: Yes Diagnostics - Vital Signs Vital Signs Temp Pulse Resp BP Pulse Ox 01/25/19 19:56 58 21 110/68 93 01/25/19 19:40 98.2 F 58 14 97/52 94 01/25/19 17:43 98.0 F 78 18 118/72 98 - Laboratory Lab Results: Lab Results 01/25/19 01/25/19 01/25/19 Range/Units 18:28 18:28 18:28 WBC 5.2 (3.5-10.8) 10^3/uL RBC 4.60 (4.18-5.48) 10^6 /uL Hgb 14.5 (14.0-18.0) g/dL Hct 42 (42-52) % MCV 91 (80-94) fL MCH 32 H (27-31) pg MCHC 35 (31-36) g/dL RDW 13 (10-15) % Plt Count 191 (150-450) 10^3/uL MPV 7.1 L (7.4-10.4) fL Neut % (Auto) 58.9 % Lymph % (Auto) 25.5 % [place] % (Auto) 11.9 % Eos % (Auto) 2.8 % Baso % (Auto) 0.9 % Absolute Neuts (auto) 3.1 (1.5-7.7) 10^3/ul Absolute Lymphs (auto) 1.3 (1.0-4.8) 10^3/ul Absolute Monos (auto) 0.6 (0-0.8) 10^3/ul Absolute Eos (auto) 0.1 (0-0.6) 10^3/ul Absolute Basos (auto) 0.0 (0-0.2) 10^3/ul Absolute Nucleated RBC 0.0 10^3/ul Nucleated RBC % 0.1 INR (Anticoag Therapy) 1.01 (0.82-1.09) Sodium 139 (135-145) mmol/L Potassium 4.0 (3.5-5.0) mmol/L Chloride 108 (101-111) mmol/L Carbon Dioxide 26 (22-32) mmol/L Anion Gap 5 (2-11) mmol/L BUN 26 H (6-24) mg/dL Creatinine 1.28 H (0.67-1.17) mg/dL Est GFR ( Amer) 68.7 (>60) Est GFR (Non-Af Amer) 56.8 (>60) BUN/Creatinine Ratio 20.3 H (8-20) Glucose 94 (70-100) mg/dL Calcium 9.7 (8.6-10.3) mg/dL Total Bilirubin 0.70 (0.2-1.0) mg/dL AST 17 (13-39) U/L ALT 17 (7-52) U/L Alkaline Phosphatase 57 (34-104) U/L Troponin I 0.00 (<0.04) ng/mL Total Protein 6.5 (6.4-8.9) g/dL Albumin 4.1 (3.2-5.2) g/dL Globulin 2.4 (2-4) g/dL Albumin/Globulin Ratio 1.7 (1-3) Result Diagrams: 01/25/19 18:28 01/25/19 18:28 Lab Statement: Any lab studies that have been ordered have been reviewed, and results considered in the medical decision making process. - Radiology CXR Radiology Interpretation Completed By: ED Physician Summary of Radiographic Findings: no acute process - EKG 2005 Cardiac Rate: NL - 64 BPM EKG Rhythm: Sinus Rhythm Summary of EKG Findings: sinus rhythm, 64 BPM, Normal axis. Normal interval. No ischemic changes Abdominal Pain Male Course/Dx - Course Course Of Treatment: This patient is a 63 year old M presenting to [facility] with a chief complaint of left-sided, intermittent flank pain since this morning. Pt notes he is feeling better. The patient rates the pain 2/10 in severity. Symptoms aggravated by nothing. Symptoms alleviated by nothing. Patient denies N /V and dyspnea. He states he occasionally takes Advil, but stopped taking his blood thinner medication 3 months ago. Physical exam shows no remarkable findings. Lab results show MCH 32, MPV 7.1, BUN 26, creatinine 1.28, BUN/ creatinine ratio 20.3. CXR shows no acute process. EKG at 2005 shows sinus rhythm, 64 BPM, Normal axis. Normal interval. No ischemic changes. Dx is atypical CP. Pt is agreeable to discharge. Pt was told to follow up with his primary care provider within 1-2 days and to return to the ED for any new or worsening symptoms. - Diagnoses Provider Diagnoses: Atypical chest pain Discharge - Sign-Out/Discharge Documenting (check all that apply): Patient Departure - discharge Patient Received Moderate/Deep Sedation with Procedure: No - Discharge Plan Condition: Stable Disposition: HOME Patient Education Materials: Chest Pain (ED) Referrals: Maurice Rene MD [Primary Care Provider] - 1 Day Additional Instructions: Follow up with your primary care provider within 1-2 days. Return to the ED for any new or worsening symptoms. - Attestation Statements Document Initiated by Scribe: Yes Documenting Scribe: Satya Dumont Provider For Whom Keithibdavian is Documenting (Include Credential): Dr. Deepak Davis MD Scribe Attestation: Satya Boudreaux scribed for Dr. Deepak Davis MD on 01/25/19 at 2113. Status of Scribe Document: Ready
[2019-01-25 21:23] VITALS: BP 113/66
== END 2019-01-25 21:25 | disposition home or self-care (01) ==
LOC: ED 17:41
DX: R07.89 Other chest pain (principal); K21.9 Gastro-esophageal reflux disease without esophagitis; Z88.2 Allergy status to sulfonamides; Z91.041 Radiographic dye allergy status; Z79.899 Other long term (current) drug therapy; Z87.891 Personal history of nicotine dependence
CPT/HCPCS: 36415; 71046; 80053; 84484; 85025; 85379; 85610; 93005; 99283

== ENCOUNTER 2019-07-25 11:46 | Emergency (ER) | payer BC, OTHER ==
--- NOTE | 2019-07-25 12:32 | ED ---
Complex/Multi-Sys Presentation - HPI Summary HPI Summary: 64 y/o male presented to [facility] with medial RLE pain with no associated injury. Pt states that the pain began below the knee but has now moved above the knee. Pt denies CP and dyspnea. He states a Hx of a blood clot in his LLE that led to PE 2 years ago, but notes no cardiac Hx. He is not on anticoagulants and notes that he stands a lot. - History Of Current Complaint Chief Complaint: EDExtremityLower Time Seen by Provider: 07/25/19 12:16 Hx Obtained From: Patient Onset/Duration: Still Present Location: Pain At: - medial RLE Associated Signs And Symptoms: Negative: Chest Pain Related History: Similar Episode/Diagnosed As: - PE from clot in LLE - Allergies/Home Medications Allergies/Adverse Reactions: Allergies Allergy/AdvReac Type Severity Reaction Status Date / Time iodine Allergy Mild Hives Verified 07/25/19 12:00 sulfamethoxazole Allergy Unknown Verified 07/25/19 12:00 Reaction Details IV CONTRAST Allergy Mild Hives Uncoded 07/25/19 12:00 PMH/Surg Hx/FS Hx/Imm Hx Endocrine/Hematology History: Denies: Hx Anticoagulant Therapy, Hx Diabetes, Hx Thyroid Disease Cardiovascular History: Denies: Hx Atrial Fibrillation, Hx Congenital Heart Disease, Hx Congestive Heart Failure, Hx Deep Vein Thrombosis, Hx Hypercholesterolemia, Hx Hypertension , Hx Pacemaker/ICD Respiratory History: Denies: Hx Asthma, Hx Chronic Obstructive Pulmonary Disease (COPD) GI History: Reports: Hx Gastroesophageal Reflux Disease History: Denies: Hx Renal Disease Sensory History: Reports: Hx Contacts or Glasses Denies: Hx Hearing Aid Opthamlomology History: Reports: Hx Contacts or Glasses Neurological History: Denies: Hx Dementia, Hx Seizures Psychiatric History: Denies: Hx Substance Abuse - Surgical History Surgery Procedure, Year, and Place: right arm tendon repair and pins/plate. pionidal csyt Infectious Disease History: No Infectious Disease History: Reports: Hx of Known/Suspected MRSA - staph infection in RUE 2 years ago Denies: Hx Clostridium Difficile, Hx Hepatitis, Hx Human Immunodeficiency Virus (HIV), Hx Shingles, Hx Tuberculosis, Hx Known/Suspected VRSA, History Other Infectious Disease, Traveled Outside the [place] in Last 30 Days - Family History Known Family History: Negative: Renal Disease, Respiratory Disease, Seizure Disorder - Social History Alcohol Use: None Alcohol Amount: Quit approximately 3 years ago Hx Substance Use: No Substance Use Type: Reports: None Hx Tobacco Use: Yes Smoking Status (MU): Former Smoker Have You Smoked in the Last Year: No Review of Systems Positive: Other - negative dyspnea. Negative: Chest Pain Positive: Other - medial RLE pain All Other Systems Reviewed And Are Negative: Yes Physical Exam - Summary Physical Exam Summary: Constitutional: Well-developed, Well-nourished, Alert. (-) Distressed Skin: Warm, Dry HENT: Normocephalic; Atraumatic Eyes: Conjunctiva normal Neck: Musculoskeletal ROM normal neck. (-) JVD, (-) Stridor, (-) Tracheal deviation Cardio: Rhythm regular, rate normal, Heart sounds normal; Intact distal pulses; The pedal pulses are 2+ and symmetric. Radial pulses are 2+ and symmetric. (-) Murmur Pulmonary/Chest wall: Effort normal. (-) Respiratory distress, (-) Wheezes, (-) Rales Abd: Soft, (-) tenderness, (-) Distension, (-) Guarding, (-) Rebound Musculoskeletal: RLE: no calf tenderness/swelling/erythema, mild focal tenderness at distal medial thigh, no palpable vessel/varicose veins Lymph: (-) Cervical adenopathy Neuro: Alert, Oriented x3 Psych: Mood and affect Normal Triage Information Reviewed: Yes Vital Signs On Initial Exam: Initial Vitals Temp Pulse Resp BP Pulse Ox 98.1 F 76 14 122/79 96 07/25/19 11:57 07/25/19 11:57 07/25/19 11:57 07/25/19 11:57 07/25/19 11:57 Vital Signs Reviewed: Yes Procedures - Sedation Patient Received Moderate/Deep Sedation with Procedure: No Diagnostics - Vital Signs Vital Signs Temp Pulse Resp BP Pulse Ox 07/25/19 11:57 98.1 F 76 14 122/79 96 - Laboratory Lab Statement: Any lab studies that have been ordered have been reviewed, and results considered in the medical decision making process. - Ultrasound venous doppler Ultrasound Interpretation Completed By: Radiologist Summary of Ultrasound Findings: No evidence of DVT identified. This report was reviewed by the ED physician. Complex Multi-Symp Course/Dx Course Of Treatment: 64 y/o male presented to [facility] with medial RLE pain with no associated injury. Pt states that the pain began below the knee but has now moved above the knee. Pt denies CP and dyspnea. Exam of RLE found no calf tenderness/swelling/erythema, mild focal tenderness at distal medial thigh, no palpable vessel/varicose veins. Otherwise normal exam. Venous Doppler study showed no evidence of DVT. Pt was diagnosed with RLE pain and discharged to home. - Diagnoses Provider Diagnoses: Leg pain, right Discharge ED - Sign-Out/Discharge Documenting (check all that apply): Patient Departure - dc - Discharge Plan Condition: Stable Disposition: HOME Patient Education Materials: Leg Pain (ED) Referrals: Maurice Rene MD [Primary Care Provider] - Additional Instructions: Follow up with your primary care physician in 1-3 days. If you experience new or worsening symptoms please return to the ER. - Billing Disposition and Condition Condition: STABLE Disposition: Home - Attestation Statements Document Initiated by Farideh: Yes Documenting Scribe: Abdulaziz Leonard Provider For Whom Farideh is Documenting (Include Credential): Souleymane Garcia DO Scribe Attestation: Abdulaziz Boudreaux scribed for Souleymane Garcia DO on 07/25/19 at 1713. Scribe Documentation Reviewed: Yes Provider Attestation: The documentation as recorded by the Abdulaziz richardson accurately reflects the service I personally performed and the decisions made by Souleymane mcfarland DO Status of Scribdavian Document: Viewed
[2019-07-25 13:40] VITALS: BP 98/67
== END 2019-07-25 13:40 | disposition home or self-care (01) ==
LOC: ED 11:46
DX: M79.651 Pain in right thigh (principal); Z86.718 Personal history of other venous thrombosis and embolism; Z88.2 Allergy status to sulfonamides; Z88.3 Allergy status to other anti-infective agents; Z91.041 Radiographic dye allergy status; Z87.891 Personal history of nicotine dependence
CPT/HCPCS: 99283